=== PATIENT | male | born 1940 | race Caucasian/White ===

== ENCOUNTER 2017-03-28 12:18 | Emergency (ER) | payer BC, OTHER ==
[2017-03-28 12:28] VITALS: BP 124/72; PULSE 78; TEMP 98.6; BMI 36.6
[2017-03-28] MEDS ORDERED: oxyCODONE HCL 5 MG TABLET PO ONE (13:23)
[2017-03-28] MEDS ORDERED: oxyCODONE HCL 5 MG TABLET ONE (13:25)
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
== END 2017-03-28 16:39 | disposition home or self-care (01) ==
LOC: JERFT 12:18
DX: S80.12XA Contusion of left lower leg, initial encounter (principal); V43.42XA Person boarding or alighting a car injured in collision with other type car, initial encounter; Y92.414 Local residential or business street as the place of occurrence of the external cause; Y93.89 Activity, other specified; Y99.8 Other external cause status; I10 Essential (primary) hypertension; E11.9 Type 2 diabetes mellitus without complications; Z79.4 Long term (current) use of insulin; Z94.4 Liver transplant status
CPT/HCPCS: 70450-TC; 72125-TC; 72131-TC; 72170-TC; 73562-TC-LT; 73700-TC-RT; 99281-25

== ENCOUNTER 2017-04-15 13:13 | Inpatient (IN) | payer BC, OTHER ==
[2017-04-15 13:23] VITALS: BMI 37.4
--- NOTE | 2017-04-15 14:14 | PDOC ---
History of Present Illness - General History Source: Patient, Family Exam Limitations: No Limitations - History of Present Illness Initial Comments: 04/15/17 14:45 The patient is a 76 year old male with a significant past medical history of diabetes, liver transplant (15 years ago), and hypertension, presenting to the Emergency Department with cough and difficulty breathing for three days. The patient reports that he has had a non productive cough for four days that he states cant bring anything up. He admits to chest pain associated with the cough and difficulty breathing. He reports calling his doctor on the phone who states it sounds like fluid in his lungs. He admits to a liver transplant 15 years ago, for which he takes Prograf. The family also reports a fever. He denies previously having problems with breathing. Family states they want him tested for Lyme's disease. The patient denies nausea, vomiting, and diarrhea. Patient denies palpitations. Patient denies dizziness, headache, or visual changes. Patient denies abdominal pain. PCP: Dr. Nam Daniel Hx: former cigarette smoker Surgical Hx: appendectomy, bilateral hernia repair, cholecystectomy, liver transplant <Lor Barnard - Last Filed: 04/15/17 14:58> <Parvin Chen - Last Filed: 04/15/17 17:17> <Mumtaz Caldera - Last Filed: 04/15/17 17:32> - General Chief Complaint: SIRS, Suspected/Possible Stated Complaint: LIVER TRANSPLANT,FEVER,SOB Time Seen by Provider: 04/15/17 14:13 Past History <Lor Barnard - Last Filed: 04/15/17 14:58> <Parvin Chen - Last Filed: 04/15/17 17:17> - Past Medical History Anemia: No Asthma: No Cancer: No Cardiac Disorders: No CVA: No COPD: No CHF: No Dementia: No Diabetes: Yes (IDDM) GI Disorders: Yes Disorders: Yes (GOUT) HTN: Yes Hypercholesterolemia: Yes Liver Disease: Yes (TRANSPLANT 2000) Seizures: No Thyroid Disease: No - Surgical History Abdominal Surgery: Yes (JASON HERNIA REPAIR) Appendectomy: Yes Cardiac Surgery: No Cholecystectomy: Yes GI Surgery: Yes (liver) Lung Surgery: No Neurologic Surgery: No Orthopedic Surgery: No - Psycho/Social/Smoking Cessation Hx Anxiety: No Suicidal Ideation: No Smoking History: Current some day smoker Have you smoked in the past 12 months: Yes Number of Cigarettes Smoked Daily: 1 Information on smoking cessation initiated: Yes 'Breaking Loose' booklet given: 04/15/17 Hx Alcohol Use: No Drug/Substance Use Hx: No Substance Use Type: None Hx Substance Use Treatment: No <Mumtaz Caldera - Last Filed: 04/15/17 17:32> - Past Medical History Allergies/Adverse Reactions: Allergies Allergy/AdvReac Type Severity Reaction Status Date / Time No Known Drug Allergies Allergy Verified 04/15/17 13:19 Home Medications: Ambulatory Orders Allopurinol [Zyloprim -] 300 mg PO DAILY 05/14/15 Colchicine [Colcrys -] 0.6 mg PO DAILY 05/14/15 Insulin Lispro Protamin/Lispro [Humalog Mix 75-25 Kwikpen] 60 unit SQ HS Lansoprazole [Prevacid -] 30 mg PO DAILY 05/14/15 Metoprolol Succinate [Toprol XL -] 25 mg PO DAILY 05/14/15 Pravastatin Sodium 20 mg PO DAILY 05/14/15 Tacrolimus 1 mg PO DAILY 05/14/15 Oxycodone HCl 5 mg PO BID PRN #10 tablet MDD 2 03/28/17 Review of Systems - Review of Systems Able to Perform ROS?: Yes Comments:: 04/15/17 14:45 GENERAL/CONSTITUTIONAL: No fever or chills. No weakness. HEAD, EYES, EARS, NOSE AND THROAT: No change in vision. No ear pain or discharge. No sore throat. CARDIOVASCULAR: + chest pain. No palpitations. RESPIRATORY: + nonproductive cough, + difficulty breathing. No wheezing, or hemoptysis. GASTROINTESTINAL: No nausea, vomiting, diarrhea or constipation. GENITOURINARY: No dysuria, frequency, or change in urination. MUSCULOSKELETAL: No joint or muscle swelling or pain. No neck or back pain. SKIN: No rash NEUROLOGIC: No headache, vertigo, loss of consciousness, or change in strength/ sensation. ENDOCRINE: No increased thirst. No abnormal weight change. HEMATOLOGIC/LYMPHATIC: No anemia, easy bleeding, or history of blood clots. ALLERGIC/IMMUNOLOGIC: No hives or skin allergy. <Lor Barnard - Last Filed: 04/15/17 14:58> *Physical Exam - Vital Signs Last Vital Signs Temp Pulse Resp BP Pulse Ox 100.3 F H 97 H 24 120/59 95 04/15/17 13:20 04/15/17 13:20 04/15/17 13:20 04/15/17 13:20 04/15/17 13:20 - Physical Exam Comments: 04/15/17 14:46 GENERAL: Awake, alert, and fully oriented, in no acute distress HEAD: No signs of trauma EYES: PERRLA, EOMI, sclera anicteric, conjunctiva clear ENT: Auricles normal inspection, hearing grossly normal, nares patent, oropharynx clear without exudates. Moist mucosa NECK: Slight JVD. Normal ROM, supple, no lymphadenopathy, or masses LUNGS: Rhonchi scattered throughout, front and back, bilaterally. HEART: Regular rate and rhythm, normal S1 and S2, no murmurs, rubs or gallops ABDOMEN: Protuberant abdomen. Soft, nontender, normoactive bowel sounds. No guarding, no rebound. No masses EXTREMITIES: Normal range of motion, no edema. No clubbing or cyanosis. No cords, erythema, or tenderness NEUROLOGICAL: Cranial nerves II through XII grossly intact. Normal speech SKIN: Warm, Dry, normal turgor, no rashes or lesions noted. <Lor Barnard - Last Filed: 04/15/17 14:58> - Vital Signs Last Vital Signs Temp Pulse Resp BP Pulse Ox 100.3 F H 97 H 24 120/59 95 04/15/17 13:20 04/15/17 13:20 04/15/17 13:20 04/15/17 13:20 04/15/17 13:20 <Parvin Chen - Last Filed: 04/15/17 17:17> - Vital Signs Last Vital Signs Temp Pulse Resp BP Pulse Ox 100.3 F H 97 H 24 120/59 95 04/15/17 13:20 04/15/17 13:20 04/15/17 13:20 04/15/17 13:20 04/15/17 13:20 <Mumtaz Caldera - Last Filed: 04/15/17 17:32> Heart Score/ECG Review #1 ECG reviewed & interpreted by me at: 14:52 (EKG reviewed by Dr. Caldera. Normal sinus rhythm. Normal rate. Normal interval. Normal EKG. ) <Lor Barnard - Last Filed: 04/15/17 14:58> ED Treatment Course - RADIOLOGY Radiograph Interpretation: 04/15/17 14:58 Chest XRay As reviewed by Dr. Matthew Alvarado IMPRESSION: No acute change since prior study. <Lor Barnard - Last Filed: 04/15/17 14:58> - LABORATORY CBC & Chemistry Diagram: 04/15/17 15:00 04/15/17 15:00 - ADDITIONAL ORDERS Additional order review: Laboratory Results 04/15/17 04/15/17 04/15/17 16:35 15:20 15:00 INR PTT (Actin FS) VBG pH 7.42 POC VBG pCO2 37.5 L POC VBG pO2 38.9 Mixed VBG HCO3 23.9 Sodium Potassium Chloride Carbon Dioxide Anion Gap BUN Creatinine Creat Clearance w eGFR Random Glucose Lactic Acid Calcium Total Bilirubin AST ALT Alkaline Phosphatase Ammonia Creatine Kinase Troponin I B-Natriuretic Peptide 243.80 Total Protein Albumin Urine Color Yellow Urine Appearance Clear Urine pH 5.0 Urine Protein 1+ H Urine Glucose (UA) Negative Urine Ketones Negative Urine Blood 1+ H Urine Nitrite Negative Urine Bilirubin Negative Urine Urobilinogen 2.0 e.u/dl Ur Leukocyte Esterase Negative Urine RBC 2 Urine WBC <1 Blood Type Antibody Screen 04/15/17 04/15/17 04/15/17 15:00 15:00 15:00 INR PTT (Actin FS) VBG pH POC VBG pCO2 POC VBG pO2 Mixed VBG HCO3 Sodium Potassium Chloride Carbon Dioxide Anion Gap BUN Creatinine Creat Clearance w eGFR Random Glucose Lactic Acid 0.9 Calcium Total Bilirubin AST ALT Alkaline Phosphatase Ammonia 27.72 Creatine Kinase Troponin I B-Natriuretic Peptide Total Protein Albumin Urine Color Urine Appearance Urine pH Urine Protein Urine Glucose (UA) Urine Ketones Urine Blood Urine Nitrite Urine Bilirubin Urine Urobilinogen Ur Leukocyte Esterase Urine RBC Urine WBC Blood Type B POSITIVE Antibody Screen Negative 04/15/17 04/15/17 15:00 15:00 INR 1.21 H PTT (Actin FS) 31.1 VBG pH POC VBG pCO2 POC VBG pO2 Mixed VBG HCO3 Sodium 137 Potassium 4.4 Chloride 102 Carbon Dioxide 26 Anion Gap 9 BUN 21 H D Creatinine 1.3 Creat Clearance w eGFR 53.39 Random Glucose 173 H D Lactic Acid Calcium 8.9 Total Bilirubin 0.9 D AST 17 ALT 18 Alkaline Phosphatase 114 D Ammonia Creatine Kinase 64 Troponin I < 0.02 B-Natriuretic Peptide Total Protein 7.3 Albumin 3.6 Urine Color Urine Appearance Urine pH Urine Protein Urine Glucose (UA) Urine Ketones Urine Blood Urine Nitrite Urine Bilirubin Urine Urobilinogen Ur Leukocyte Esterase Urine RBC Urine WBC Blood Type Antibody Screen 04/15/17 15:00 RBC 4.23 MCV 95.2 MCHC 32.9 RDW 14.1 MPV 8.6 Neutrophils % 71.5 Lymphocytes % 17.7 D Monocytes % 7.7 Eosinophils % 2.9 Basophils % 0.2 <Parvin Chen - Last Filed: 04/15/17 17:17> - LABORATORY CBC & Chemistry Diagram: 04/15/17 15:00 04/15/17 15:00 <Mumtaz Caldera - Last Filed: 04/15/17 17:32> Medical Decision Making - Medical Decision Making 04/15/17 17:18 Dr. Lee was paged and notified via phone service. <Parvin Chen - Last Filed: 04/15/17 17:17> - Medical Decision Making 04/15/17 17:30 Because of liver transplant will give IV antibiotic and solumedrol. Will give codeine with zofran as cough supressent. DW Dr Lee, OBS <Mumtaz Caldera - Last Filed: 04/15/17 17:32> *DC/Admit/Observation/Transfer - Attestations Scribe Attestion: 04/15/17 14:48 Documentation prepared by Lor Barnard, acting as medical records coder for Mumtaz Caldera DO. <Lor Barnard - Last Filed: 04/15/17 14:58> <Parvin Chen - Last Filed: 04/15/17 17:17> - Discharge Dispostion Admit: Yes - Attestations Physician Attestion: 04/15/17 14:14 I, Dr. Mumtaz Caldera, attest that this document has been prepared under my direction and personally reviewed by me in its entirety. I further attest, that it accurately reflects all work, treatment, procedures and medical decision -making performed by me. <Mumtaz Caldera - Last Filed: 04/15/17 17:32> Diagnosis at time of Disposition: Chronic obstructive pulmonary disease with acute exacerbation - Discharge Dispostion Condition at time of disposition: Improved - Referrals Referrals: Nam Lee MD [Primary Care Provider] -
[2017-04-15 15:19] LABS: BASOPHIL 0.2 % (0-2.0); EOSINOPHIL 2.9 % (0-4.5); MCH 31.4 pg (25.7-33.7); MCHC 32.9 g/dl (32.0-35.9); MEAN CELL VOLUME 95.2 fl (80-96); MEAN PLT VOLUME 8.6 fl (7.5-11.1); NEUTROPHILS 71.5 % (42.8-82.8); PLATELET COUNT 176 K/MM3 (134-434); RDW 14.1 % (11.9-15.9); WHITE BLOOD COUNT 8.7 K/mm3 (4.0-10.0)
[2017-04-15 15:27] LABS: VENOUS BLOOD GAS HCO3 23.9 meq/L (19-25); VENOUS PH 7.42 (7.32-7.42)
[2017-04-15 15:31] LABS: INR 1.21 (0.82-1.09); PROTHROMBIN TIME (PATIENT) 13.4 SEC (9.98-11.88)
[2017-04-15 15:33] LABS: ACTIVATED PTT 31.1 SECONDS (26.9-34.4)
[2017-04-15 15:40] LABS: ALBUMIN 3.6 g/dl (3.4-5.0); ANION GAP 9 (8-16); BILIRUBIN,TOTAL 0.9 mg/dL (0.2-1.0); CALCIUM 8.9 mg/dL (8.5-10.1); CO2 26 mmol/L (21-32); CREATININE 1.3 mg/dL (0.7-1.3); GLUCOSE,RANDOM 173 mg/dL (74-106); SGOT/AST 17 U/L (15-37); SGPT/ALT 18 U/L (12-78); TOT PROT 7.3 g/dl (6.4-8.2)
[2017-04-15 15:42] LABS: ALK PHOS 114 U/L (45-117); TROPONIN I < 0.02 ng/ml (0.00-0.05)
[2017-04-15 16:47] LABS: URINE APPEARANCE CLEAR; URINE BILIRUBIN NEGATIVE (NEGATIVE); URINE COLOR YELLOW; URINE GLUCOSE (UA) NEGATIVE (NEGATIVE); URINE KETONE NEGATIVE (NEGATIVE); URINE LEUK ESTERASE NEGATIVE (NEGATIVE); URINE NITRITE NEGATIVE (NEGATIVE); URINE UROBILINOGEN 2.0 E.U/dl E.U./dl (0.2-1.0)
[2017-04-15 16:54] LABS: URINE BLOOD 1+ (NEGATIVE); URINE PROTEIN 1+ (NEGATIVE)
[2017-04-15 16:55] LABS: URINE RBC 2 /hpf (0-3); URINE WBC <1 /hpf (3-5)
[2017-04-15] MEDS ORDERED: CODEINE SO4 30 MG TABLET PO ONE (17:28)
[2017-04-15] MEDS ORDERED: ONDANSETRON *ODT* 4 MG TABLET SL ONE (17:28)
[2017-04-15] MEDS ORDERED: methylPREDNISolone NA SUCC 125 MG/2 ML VIAL IVPB ONE (17:29)
[2017-04-15] MEDS ORDERED: LEVOFLOXACIN 750 MG IVPB 150 ML IVPB ONE ×2 (17:29→17:37)
[2017-04-15] MEDS ORDERED: methylPREDNISolone NA SUCC 125 MG/2 ML VIAL ONE (17:36)
[2017-04-15] MEDS ORDERED: ONDANSETRON *ODT* 4 MG TABLET ONE (17:36)
[2017-04-15] MEDS ORDERED: CODEINE SO4 30 MG TABLET ONE (17:36)
[2017-04-15] MEDS ORDERED: ACETAMINOPHEN 325 MG TABLET (FP) PO PRN (18:19)
[2017-04-15] MEDS ORDERED: oxyCODONE HCL 5 MG TABLET PO PRN (18:19)
[2017-04-15] MEDS ORDERED: cefTRIAXone 1 GM/50 ML BAG (PRE-DOCKED) IVPB ONE (20:00)
[2017-04-15] MEDS: methylPREDNISolone NA SUCC 40 MG/1 ML VIAL IVPB SCH (20:36)
[2017-04-15 21:06] LABS: TROPONIN I < 0.02 ng/ml (0.00-0.05)
[2017-04-15] MEDS: ATORVASTATIN CA 10 MG TABLET (FP) PO SCH (21:48)
[2017-04-15] MEDS: HEPARIN NA (PORCINE) 5,000 UNITS/ML 1ML VIAL SQ SCH (21:48)
[2017-04-16] MEDS: ALBUTEROL SO4 0.083% IH SOL 2.5 MG/3 ML VIAL.NEB. NEB SCH ×4 (00:35→18:13)
[2017-04-16] MEDS: IPRATROPIUM BR 0.02% 0.5 MG/2.5 ML VIAL.NEB. NEB SCH ×4 (00:35→18:12)
[2017-04-16] MEDS: methylPREDNISolone NA SUCC 40 MG/1 ML VIAL IVPB SCH ×4 (03:50→22:27)
[2017-04-16] MEDS: INSULIN (NOVOLOG MIX 70/30) 100 UNITS/ML MDV SQ SCH ×2 (06:11→16:49)
[2017-04-16 07:19] LABS: MCH 32.1 pg (25.7-33.7); MCHC 33.6 g/dl (32.0-35.9); MEAN CELL VOLUME 95.6 fl (80-96); MEAN PLT VOLUME 8.9 fl (7.5-11.1); NEUTROPHILS 87.9 % (42.8-82.8); PLATELET COUNT 155 K/MM3 (134-434); RDW 14.2 % (11.9-15.9); WHITE BLOOD COUNT 4.9 K/mm3 (4.0-10.0)
--- NOTE | 2017-04-16 07:23 | EKG ---
Test Reason : Blood Pressure : / mmHG Vent. Rate : 098 BPM Atrial Rate : 098 BPM P-R Int : 162 ms QRS Dur : 094 ms QT Int : 340 ms P-R-T Axes : 028 032 049 degrees QTc Int : 434 ms NORMAL SINUS RHYTHM NORMAL ECG WHEN COMPARED WITH ECG OF 04-MAY-2009 17:42, CRITERIA FOR INFERIOR INFARCT ARE NO LONGER PRESENT Confirmed by YANET AMARAL MD ([id number]) on 04/16/2017 7:23:21 AM Referred By: Confirmed By:YANET AMARAL MD
[2017-04-16 07:24] LABS: ALBUMIN 3.3 g/dl (3.4-5.0); ANION GAP 12 (8-16); CALCIUM 8.8 mg/dL (8.5-10.1); CO2 22 mmol/L (21-32); COCKROFT - GAULT 58.53; CREATININE 1.5 mg/dL (0.7-1.3); SGOT/AST 12 U/L (15-37); SGPT/ALT 18 U/L (12-78)
[2017-04-16 07:27] LABS: ALK PHOS 111 U/L (45-117); BILIRUBIN,TOTAL 0.5 mg/dL (0.2-1.0)
[2017-04-16 07:34] LABS: GLUCOSE,RANDOM 447 mg/dL (74-106)
[2017-04-16] MEDS ORDERED: PATIENT'S OWN MEDICATION (NON-FORMULARY) (Pravastatin Sodium [Pravastatin Sodium] 20 MG) PO SCH (10:00)
[2017-04-16] MEDS ORDERED: PT OWN MED DRAWER 7, Y5N ONE ×2 (10:13→12:27)
[2017-04-16] MEDS: METOPROLOL SUCCINATE 25 MG TAB.SR.24H (FP) PO SCH (10:18)
[2017-04-16] MEDS: ALLOPURINOL 300 MG TABLET (FP) PO SCH (10:18)
[2017-04-16] MEDS: PANTOPRAZOLE 40 MG TABLET (FP) PO SCH (10:18)
[2017-04-16] MEDS: HEPARIN NA (PORCINE) 5,000 UNITS/ML 1ML VIAL SQ SCH ×2 (10:19→22:26)
[2017-04-16] MEDS: cefTRIAXone 1 GM/50 ML BAG (PRE-DOCKED) IVPB SCH (10:19)
[2017-04-16 10:24] LABS: TROPONIN I < 0.02 ng/ml (0.00-0.05)
--- NOTE | 2017-04-16 11:06 | CON.PULM ---
Consult Consult Specialty:: PULMONARY Referred by:: YOGESH Reason for Consultation:: SOB/COUGH - History of Present Illness Chief Complaint: SOB/COUGH History of Present Illness: The patient is a 76 year old male with a significant past medical history of diabetes, liver transplant (15 years ago), and hypertension, presenting to the Emergency Department with cough and difficulty breathing for three days. The patient reports that he has had a non productive cough for four days that he states cant bring anything up. He admits to chest pain associated with the cough and difficulty breathing. He reports calling his doctor on the phone who states it sounds like fluid in his lungs. He admits to a liver transplant 15 years ago, for which he takes Prograf. The family also reports an undocumented fever. He denies previously having problems with breathing. The patient denies nausea, vomiting, and diarrhea. Patient denies palpitations. Patient denies dizziness, headache, or visual changes. Patient denies abdominal pain. 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 No: O2 Dependent Gastrointestinal: No: Ascites Hepatobiliary: Yes: Other (LIVER TRANSPLANT). No: Cirrhosis Renal/: No: Renal Failure Heme/Onc: No: Anemia Infectious Disease: No: AIDS Psych: No: Addictions Musculoskeletal: No: Bursitis Rheumatology: No: Fibromyalgia ENT: No: Allergic Rhinitis Endocrine: Yes: Diabetes Mellitus - Past Surgical History Additional Surgical History: LIVER TRANSPLANT - Alcohol/Substance Use Hx Alcohol Use: No - Smoking History Smoking history: Current every day smoker Have you smoked in the past 12 months: Yes Aproximately how many cigarettes per day: 10 - Social History Usual Living Arrangement: With Spouse Place of : Other History of Recent Travel: No Home Medications - Allergies Allergies/Adverse Reactions: Allergies Allergy/AdvReac Type Severity Reaction Status Date / Time No Known Drug Allergies Allergy Verified 04/15/17 13:19 - Home Medications Home Medications: Ambulatory Orders Allopurinol [Zyloprim -] 300 mg PO DAILY 05/14/15 Colchicine [Colcrys -] 0.6 mg PO DAILY 05/14/15 Insulin Lispro Protamin/Lispro [Humalog Mix 75-25 Kwikpen] 60 unit SQ HS 06/26/ 15 Lansoprazole [Prevacid -] 30 mg PO DAILY 05/14/15 Metoprolol Succinate [Toprol XL -] 25 mg PO DAILY 05/14/15 Pravastatin Sodium 20 mg PO DAILY 05/14/15 Tacrolimus 1 mg PO DAILY 05/14/15 Oxycodone HCl 5 mg PO BID PRN #10 tablet MDD 2 03/28/17 Family Disease History - Family Disease History Family History: Unremarkable Review of Systems - Review of Systems Respiratory: reports: Cough, Exercise Intolerance, SOB on Exertion, Wheezing. denies: Hemoptysis, Orthopnea Physical Exam Vital Sings: Vital Signs Temperature 98.4 F 04/16/17 08:00 Pulse Rate 101 H 04/16/17 08:00 Respiratory Rate 18 04/16/17 08:00 Blood Pressure 122/68 04/16/17 08:00 O2 Sat by Pulse Oximetry (%) 95 04/15/17 22:00 Constitutional: Yes: Calm Eyes: Yes: EOM Intact HENT: Yes: Normocephalic Neck: Yes: Trachea Midline Cardiovascular: Yes: Regular Rate and Rhythm, S1, S2 Respiratory: Yes: Rhonchi (BILATERALLY/SCATTERED) Gastrointestinal: Yes: Normal Bowel Sounds, Abdomen, Obese Renal/: Yes: WNL Breast(s): Yes: WNL Musculoskeletal: Yes: WNL Extremities: Yes: WNL Edema: No Neurological: Yes: WNL Psychiatric: Yes: WNL Labs: CBC, BMP 04/16/17 06:15 04/16/17 06:15 REST REVIEWED Imaging - Results Chest X-ray: Image Reviewed Cat Scan: Image Reviewed Problem List - Problems (1) Acute exacerbation of chronic obstructive pulmonary disease (COPD) Code(s): J44.1 - CHRONIC OBSTRUCTIVE PULMONARY DISEASE W (ACUTE) EXACERBATION (2) Acute bronchitis Code(s): J20.9 - ACUTE BRONCHITIS, UNSPECIFIED (3) Smoker Code(s): F17.200 - NICOTINE DEPENDENCE, UNSPECIFIED, UNCOMPLICATED Assessment/Plan LIKELY ACUTE BRONCHITIS NO CT EVIDENCE TO SUPPORT PNEUMONIA LIVER TRANSPLANT COPD ACTIVE SMOKER AGREE WITH STEROIDS/BRONCHODILATORS/ANTIBIOTICS/O2 NEEDED DVT PROPHYLAXSIS GLYCEMIC CONTROL SMOKING CESSATION OOB TO CHAIR WILL FOLLOW Guera GLASS MD
[2017-04-16] MEDS: TACROLIMUS 1 MG PO SCH (11:18)
--- NOTE | 2017-04-16 11:52 | HP ---
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 No: O2 Dependent Gastrointestinal: No: Ascites Hepatobiliary: Yes: Other (LIVER TRANSPLANT). No: Cirrhosis Renal/: No: Renal Failure Heme/Onc: No: Anemia Infectious Disease: No: AIDS Psych: No: Addictions Musculoskeletal: No: Bursitis Rheumatology: No: Fibromyalgia ENT: No: Allergic Rhinitis Endocrine: Yes: Diabetes Mellitus - Smoking History Smoking history: Current every day smoker Have you smoked in the past 12 months: Yes Aproximately how many cigarettes per day: 10 - Alcohol/Substance Use Hx Alcohol Use: No - Social History History of Recent Travel: No Home Medications - Allergies Allergies/Adverse Reactions: Allergies Allergy/AdvReac Type Severity Reaction Status Date / Time No Known Drug Allergies Allergy Verified 04/15/17 13:19 - Home Medications Home Medications: Ambulatory Orders Allopurinol [Zyloprim -] 300 mg PO DAILY 05/14/15 Colchicine [Colcrys -] 0.6 mg PO DAILY 05/14/15 Insulin Lispro Protamin/Lispro [Humalog Mix 75-25 Kwikpen] 60 unit SQ HS Lansoprazole [Prevacid -] 30 mg PO DAILY 05/14/15 Metoprolol Succinate [Toprol XL -] 25 mg PO DAILY 05/14/15 Pravastatin Sodium 20 mg PO DAILY 05/14/15 Tacrolimus 1 mg PO DAILY 05/14/15 Oxycodone HCl 5 mg PO BID PRN #10 tablet MDD 2 03/28/17 Review of Systems - Review of Systems Cardiovascular: reports: Chest Pain (RT SIDED), Shortness of Breath Respiratory: reports: Cough, SOB, SOB on Exertion, Wheezing Gastrointestinal: reports: No Symptoms Genitourinary: reports: No Symptoms Neurological: reports: No Symptoms Physical Examination Vital Signs: Vital Signs Temperature 98.4 F 04/16/17 08:00 Pulse Rate 101 H 04/16/17 08:00 Respiratory Rate 18 04/16/17 08:00 Blood Pressure 122/68 04/16/17 08:00 O2 Sat by Pulse Oximetry (%) 95 04/15/17 22:00 Cardiovascular: Yes: Regular Rate and Rhythm Respiratory: Yes: On Nasal O2, Rhonchi, Wheezes Gastrointestinal: Yes: Normal Bowel Sounds, Soft Edema: No Labs: CBC, BMP 04/16/17 06:15 04/16/17 06:15 Problem List - Problems (1) Acute bronchitis Assessment/Plan: IV ABX NEBS IV STEROIDS PULM Code(s): J20.9 - ACUTE BRONCHITIS, UNSPECIFIED (2) Acute exacerbation of chronic obstructive pulmonary disease (COPD) Assessment/Plan: STEROIDS NEBS Code(s): J44.1 - CHRONIC OBSTRUCTIVE PULMONARY DISEASE W (ACUTE) EXACERBATION (3) Smoker Assessment/Plan: SMOKING CESSATION DISCUSSED Code(s): F17.200 - NICOTINE DEPENDENCE, UNSPECIFIED, UNCOMPLICATED (4) Diabetes Assessment/Plan: INSULIN BGM SS ENDO Code(s): E11.9 - TYPE 2 DIABETES MELLITUS WITHOUT COMPLICATIONS (5) Chest pain Assessment/Plan: ATYPICAL PROBABLY FROM COUGHING CARDIO CE NEGATIVE Troponin, BNP 04/15/17 04/15/17 04/15/17 15:00 15:00 20:31 Troponin I < 0.02 < 0.02 B-Natriuretic Peptide 243.80 267.25 04/16/17 06:15 Troponin I < 0.02 B-Natriuretic Peptide Code(s): R07.9 - CHEST PAIN, UNSPECIFIED Qualifiers: Chest pain type: other chest pain Qualified Code(s): R07.89 - Other chest pain; R07.8 - Other chest pain
[2017-04-16] MEDS ORDERED: PNEUMOC 13-VAL CONJ-DIP CRM/PF 0.5 ML DISP.SYRIN IM ONE (12:00)
[2017-04-16] MEDS: INSULIN SLIDING SCALE (NOVOLOG) 1 VIAL SQ SCH ×3 (12:13→22:26)
--- NOTE | 2017-04-16 15:06 | CON.CARD ---
Consult Consult Specialty:: Cardiology Referred by:: DR Lee Reason for Consultation:: chest pain - History of Present Illness Chief Complaint: sob cough cp History of Present Illness: 76 year old male with a history of diabetes, liver transplant (15 years ago) at [facility], hypertension admitted with fever, cough and sputum production. Also right sided pleuritic chest pain increased with cough and palpation of the chest wall , nonexertional. No associated symptoms. No orthopnea, pnd or edema. Baseline exercise tolerance is excellent. 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 No: O2 Dependent Gastrointestinal: No: Ascites Hepatobiliary: Yes: Other (LIVER TRANSPLANT). No: Cirrhosis Renal/: No: Renal Failure Infectious Disease: No: AIDS Psych: No: Addictions Musculoskeletal: No: Bursitis Rheumatology: No: Fibromyalgia ENT: No: Allergic Rhinitis Endocrine: Yes: Diabetes Mellitus - Past Surgical History Additional Surgical History: LIVER TRANSPLANT - Alcohol/Substance Use Hx Alcohol Use: No - Smoking History Smoking history: Current every day smoker Have you smoked in the past 12 months: Yes Aproximately how many cigarettes per day: 10 - Social History Usual Living Arrangement: With Spouse History of Recent Travel: No Home Medications - Allergies Allergies/Adverse Reactions: Allergies Allergy/AdvReac Type Severity Reaction Status Date / Time No Known Drug Allergies Allergy Verified 04/15/17 13:19 - Home Medications Home Medications: Ambulatory Orders Allopurinol [Zyloprim -] 300 mg PO DAILY 05/14/15 Colchicine [Colcrys -] 0.6 mg PO DAILY 05/14/15 Insulin Lispro Protamin/Lispro [Humalog Mix 75-25 Kwikpen] 60 unit SQ HS Lansoprazole [Prevacid -] 30 mg PO DAILY 05/14/15 Metoprolol Succinate [Toprol XL -] 25 mg PO DAILY 05/14/15 Pravastatin Sodium 20 mg PO DAILY 05/14/15 Tacrolimus 1 mg PO DAILY 05/14/15 Oxycodone HCl 5 mg PO BID PRN #10 tablet MDD 2 03/28/17 Review of Systems - Review of Systems Constitutional: reports: No Symptoms Vital Signs: Vital Signs Temperature 98.4 F 04/16/17 08:00 Pulse Rate 96 H 04/16/17 13:40 Respiratory Rate 18 04/16/17 08:00 Blood Pressure 122/68 04/16/17 08:00 O2 Sat by Pulse Oximetry (%) 96 04/16/17 13:40 Constitutional: Yes: Well Nourished, No Distress Eyes: Yes: Conjunctiva Clear, EOM Intact HENT: Yes: Atraumatic, Normocephalic Neck: Yes: Supple, Trachea Midline Respiratory: Yes: Regular, CTA Bilaterally Gastrointestinal: Yes: Normal Bowel Sounds, Soft Cardiovascular: Yes: Regular Rate and Rhythm JVD: No Carotid Bruit: No PMI: Non-Displaced Heart Sounds: Yes: S1, S2 Edema: No Peripheral Pulses WNL: Yes - Other Data Labs, Other Data: CBC, BMP 04/16/17 06:15 04/16/17 06:15 INR, PTT INR 1.21 (0.82-1.09) H 04/15/17 15:00 Troponin, BNP 04/15/17 04/16/17 20:31 06:15 Troponin I < 0.02 < 0.02 B-Natriuretic Peptide 267.25 Troponin, BNP 04/15/17 04/16/17 20:31 06:15 Troponin I < 0.02 < 0.02 B-Natriuretic Peptide 267.25 Imaging - Results Chest X-ray: Report Reviewed (tammi) EKG: Report Reviewed (Normal ECG) Problem List - Problems (1) Chest pain Assessment/Plan: His chest pain is low risk for ischemia. No need for inpatient cardiac workup. continue with current treatment. smoking cessation advised. will see prn. Code(s): R07.9 - CHEST PAIN, UNSPECIFIED Qualifiers: Chest pain type: other chest pain Qualified Code(s): R07.89 - Other chest pain; R07.8 - Other chest pain
[2017-04-16] MEDS ORDERED: INSULIN (NOVOLOG) ASPART 100 UNITS/ML 10ML VIAL ONE (21:55)
[2017-04-16] MEDS: ATORVASTATIN CA 10 MG TABLET (FP) PO SCH (22:26)
[2017-04-17] MEDS ORDERED: INSULIN (NOVOLOG) ASPART 100 UNITS/ML 10ML VIAL SQ ONE (00:45)
[2017-04-17] MEDS: methylPREDNISolone NA SUCC 40 MG/1 ML VIAL IVPB SCH ×3 (03:49→21:04)
[2017-04-17] MEDS: INSULIN (NOVOLOG MIX 70/30) 100 UNITS/ML MDV SQ SCH (06:38)
[2017-04-17] MEDS: INSULIN SLIDING SCALE (NOVOLOG) 1 VIAL SQ SCH ×4 (06:38→21:04)
[2017-04-17] MEDS ORDERED: INSULIN (NOVOLOG) ASPART 100 UNITS/ML 10ML VIAL ONE ×4 (06:43→20:58)
[2017-04-17] MEDS: ALBUTEROL SO4 0.083% IH SOL 2.5 MG/3 ML VIAL.NEB. NEB SCH ×2 (06:44)
[2017-04-17] MEDS: IPRATROPIUM BR 0.02% 0.5 MG/2.5 ML VIAL.NEB. NEB SCH ×2 (06:44)
[2017-04-17] MEDS ORDERED: INSULIN (NOVOLOG MIX 70/30) 100 UNITS/ML MDV SQ SCH ×3 (08:21→16:30)
--- NOTE | 2017-04-17 08:23 | PN ---
Progress Note, Physician History of Present Illness: STILL WITH A COUGH SOME IMPROVEMENT - Current Medication List Current Medications: Active Medications Acetaminophen (Tylenol -) 650 mg PO Q4H PRN PRN Reason: FEVER OR PAIN Albuterol/Ipratropium (Duoneb -) 1 amp NEB QIDR [facility] Allopurinol (Zyloprim -) 300 mg PO DAILY [facility] Last Admin: 04/16/17 10:18 Dose: Not Given Atorvastatin Calcium (Lipitor -) 10 mg PO HS [facility] Last Admin: 04/16/17 22:26 Dose: 10 mg Ceftriaxone Sodium (Rocephin 1gm Ivpb (Pre-Docked)) 1 gm IVPB DAILY [facility] PRN Reason: Protocol Last Admin: 04/16/17 10:19 Dose: 1 gm Heparin Sodium (Porcine) (Heparin -) 5,000 unit SQ BID [facility] Last Admin: 04/16/17 22:26 Dose: 5,000 unit Insulin Aspart (Novolog Vial Sliding Scale -) 1 vial SQ ACHS [facility] PRN Reason: Protocol Last Admin: 04/17/17 06:38 Dose: 10 units Insulin Aspart (Novolog Mix 70/30 Vial) 25 units SQ BIDAC [facility] Methylprednisolone Sodium Succinate (Solu-Medrol -) 40 mg IVPB BID [facility] Metoprolol Succinate (Toprol Xl -) 25 mg PO DAILY [facility] Last Admin: 04/16/17 10:18 Dose: Not Given Non-Formulary Medication (Tacrolimus [Tacrolimus]) 1 mg PO DAILY [facility] Last Admin: 04/16/17 11:18 Dose: 1 mg Oxycodone HCl (Roxicodone -) 5 mg PO Q6H PRN PRN Reason: PAIN Pantoprazole Sodium (Protonix -) 40 mg PO DAILY [facility] Last Admin: 04/16/17 10:18 Dose: 40 mg - Objective Vital Signs: Vital Signs Temperature 98.6 F 04/17/17 05:48 Pulse Rate 100 H 04/17/17 05:48 Respiratory Rate 20 04/17/17 05:48 Blood Pressure 107/64 04/17/17 05:48 O2 Sat by Pulse Oximetry (%) 96 04/16/17 13:40 Cardiovascular: Yes: Regular Rate and Rhythm Respiratory: Yes: On Nasal O2, Rhonchi Gastrointestinal: Yes: Normal Bowel Sounds, Soft Labs: CBC, BMP 04/16/17 06:15 04/16/17 06:15 INR, PTT INR 1.21 (0.82-1.09) H 04/15/17 15:00 Problem List - Problems (1) Acute bronchitis Assessment/Plan: IV ABX NEBS IV STEROIDS--TAPER PULM Code(s): J20.9 - ACUTE BRONCHITIS, UNSPECIFIED (2) Acute exacerbation of chronic obstructive pulmonary disease (COPD) Assessment/Plan: STEROIDS NEBS Code(s): J44.1 - CHRONIC OBSTRUCTIVE PULMONARY DISEASE W (ACUTE) EXACERBATION (3) Smoker Assessment/Plan: SMOKING CESSATION DISCUSSED Code(s): F17.200 - NICOTINE DEPENDENCE, UNSPECIFIED, UNCOMPLICATED (4) Diabetes Assessment/Plan: INSULIN--INCREASE AND MONITOR BS TAPER STEROIDS BGM SS ENDO Code(s): E11.9 - TYPE 2 DIABETES MELLITUS WITHOUT COMPLICATIONS (5) Chest pain Assessment/Plan: ATYPICAL PROBABLY FROM COUGHING CARDIO CONSULT NOTED CE NEGATIVE Troponin, BNP 04/15/17 04/15/17 04/15/17 15:00 15:00 20:31 Troponin I < 0.02 < 0.02 B-Natriuretic Peptide 243.80 267.25 04/16/17 06:15 Troponin I < 0.02 B-Natriuretic Peptide Code(s): R07.9 - CHEST PAIN, UNSPECIFIED Qualifiers: Chest pain type: other chest pain Qualified Code(s): R07.89 - Other chest pain; R07.8 - Other chest pain
[2017-04-17] MEDS: ALBUTEROL SO4 2.5/IPRATROPIUM 0.5 INH SOL 3 ML VIAL.NEB. NEB SCH ×2 (11:11→18:05)
[2017-04-17] MEDS: HEPARIN NA (PORCINE) 5,000 UNITS/ML 1ML VIAL SQ SCH ×2 (11:16→21:04)
[2017-04-17] MEDS: TACROLIMUS 1 MG PO SCH (11:17)
[2017-04-17] MEDS: METOPROLOL SUCCINATE 25 MG TAB.SR.24H (FP) PO SCH (11:17)
[2017-04-17] MEDS: PANTOPRAZOLE 40 MG TABLET (FP) PO SCH (11:17)
[2017-04-17] MEDS: cefTRIAXone 1 GM/50 ML BAG (PRE-DOCKED) IVPB SCH (11:17)
[2017-04-17] MEDS: ALLOPURINOL 300 MG TABLET (FP) PO SCH (11:17)
[2017-04-17] MEDS ORDERED: INSULIN (NOVOLOG MIX 70/30) 100 UNITS/ML MDV SQ ONE (11:37)
--- NOTE | 2017-04-17 14:17 | EKG ---
Test Reason : Blood Pressure : / mmHG Vent. Rate : 101 BPM Atrial Rate : 101 BPM P-R Int : 166 ms QRS Dur : 096 ms QT Int : 366 ms P-R-T Axes : 028 021 040 degrees QTc Int : 474 ms SINUS TACHYCARDIA OTHERWISE NORMAL ECG WHEN COMPARED WITH ECG OF 15-APR-2017 14:48, NO SIGNIFICANT CHANGE WAS FOUND Confirmed by FERNANDO SRINIVASAN MD ([id number]) on 04/17/2017 2:17:37 PM Referred By: Deanna TEJADA Confirmed By:FERNANDO SRINIVASAN MD
--- NOTE | 2017-04-17 15:02 | PN ---
Progress Note (short form) - Note Progress Note: PULMONARY Breathing improving but still with nonproductive cough. No fevers or chills. Last Vital Signs Temp Pulse Resp BP Pulse Ox 97.9 F 109 H 20 117/62 96 04/17/17 14:15 04/17/17 14:15 04/17/17 08:00 04/17/17 14:15 04/17/17 08:00 Gen: NAD at rest Heart: RRR Lung: decreased breath sounds at the bases Abd: soft, nontender Ext: no edema CBC, BMP 04/16/17 06:15 04/16/17 06:15 Active Medications Acetaminophen (Tylenol -) 650 mg PO Q4H PRN PRN Reason: FEVER OR PAIN Albuterol/Ipratropium (Duoneb -) 1 amp NEB QIDR [facility] Last Admin: 04/17/17 11:11 Dose: 1 amp Allopurinol (Zyloprim -) 300 mg PO DAILY [facility] Last Admin: 04/17/17 11:17 Dose: 300 mg Atorvastatin Calcium (Lipitor -) 10 mg PO HS [facility] Last Admin: 04/16/17 22:26 Dose: 10 mg Ceftriaxone Sodium (Rocephin 1gm Ivpb (Pre-Docked)) 1 gm IVPB DAILY [facility] PRN Reason: Protocol Last Admin: 04/17/17 11:17 Dose: 1 gm Heparin Sodium (Porcine) (Heparin -) 5,000 unit SQ BID [facility] Last Admin: 04/17/17 11:16 Dose: 5,000 unit Insulin Aspart (Novolog Mix 70/30 Vial) 35 units SQ BIDAC [facility] Insulin Aspart (Novolog Vial Sliding Scale -) 1 vial SQ ACHS [facility] PRN Reason: Protocol Insulin Detemir (Levemir Vial) 30 units SQ HS [facility] Methylprednisolone Sodium Succinate (Solu-Medrol -) 40 mg IVPB BID [facility] Last Admin: 04/17/17 11:17 Dose: 40 mg Metoprolol Succinate (Toprol Xl -) 25 mg PO DAILY [facility] Last Admin: 04/17/17 11:17 Dose: 25 mg Non-Formulary Medication (Tacrolimus [Tacrolimus]) 1 mg PO DAILY [facility] Last Admin: 04/17/17 11:17 Dose: 1 mg Oxycodone HCl (Roxicodone -) 5 mg PO Q6H PRN PRN Reason: PAIN Pantoprazole Sodium (Protonix -) 40 mg PO DAILY [facility] Last Admin: 04/17/17 11:17 Dose: 40 mg A/P Acute COPD exacerbation Acute Bronchitis DM Smoker - continue antibiotics - can taper medrol in AM - inhaled bronchodilators - glucose control while on systemic steroids - smoking cessation - DVT prophylaxis
[2017-04-17] MEDS: INSULIN DETEMIR 100 UNITS/ML MDV SQ SCH (21:03)
[2017-04-17] MEDS: ATORVASTATIN CA 10 MG TABLET (FP) PO SCH (21:04)
--- NOTE | 2017-04-17 22:47 | CONSULT ---
Consult Consult Specialty:: ENDOCRINE Referred by:: DR.IYAD MANZANARES Reason for Consultation:: IDDM UNCONTROLLED - History of Present Illness Chief Complaint: HIGH BLOOD SUGARS History of Present Illness: 76 year old male with a significant past medical history of diabetes, liver transplant (15 years ago), and hypertension, presenting to the Emergency Department with cough and difficulty breathing for three days. The patient reports that he has had a non productive cough for four days that he states can t bring anything up. 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 No: O2 Dependent Gastrointestinal: No: Ascites Hepatobiliary: Yes: Other (LIVER TRANSPLANT). No: Cirrhosis Renal/: No: Renal Failure Infectious Disease: No: AIDS Psych: No: Addictions Musculoskeletal: No: Bursitis Rheumatology: No: Fibromyalgia ENT: No: Allergic Rhinitis Endocrine: Yes: Diabetes Mellitus - Past Surgical History Additional Surgical History: LIVER TRANSPLANT - Alcohol/Substance Use Hx Alcohol Use: No - Smoking History Smoking history: Current every day smoker Have you smoked in the past 12 months: Yes Aproximately how many cigarettes per day: 10 - Social History Usual Living Arrangement: With Spouse History of Recent Travel: No Home Medications - Allergies Allergies/Adverse Reactions: Allergies Allergy/AdvReac Type Severity Reaction Status Date / Time No Known Drug Allergies Allergy Verified 04/15/17 13:19 - Home Medications Home Medications: Ambulatory Orders Allopurinol [Zyloprim -] 300 mg PO DAILY 05/14/15 Colchicine [Colcrys -] 0.6 mg PO DAILY 05/14/15 Insulin Lispro Protamin/Lispro [Humalog Mix 75-25 Kwikpen] 60 unit SQ HS Lansoprazole [Prevacid -] 30 mg PO DAILY 05/14/15 Metoprolol Succinate [Toprol XL -] 25 mg PO DAILY 05/14/15 Pravastatin Sodium 20 mg PO DAILY 05/14/15 Tacrolimus 1 mg PO DAILY 05/14/15 Oxycodone HCl 5 mg PO BID PRN #10 tablet MDD 2 03/28/17 Review of Systems - Review of Systems Constitutional: reports: Lethargy, Weakness HENT: reports: No Symptoms Neck: reports: No Symptoms Cardiovascular: reports: Palpitations, Shortness of Breath Respiratory: reports: Exercise Intolerance, SOB on Exertion, Wheezing Gastrointestinal: reports: Bloating, Constipation Genitourinary: reports: No Symptoms Breasts: reports: No Symptoms Reported Musculoskeletal: reports: Joint Swelling, Muscle Pain, Muscle Cramps, Muscle Weakness Integumentary: reports: No Symptoms Endocrine: reports: Unexplained Weight Gain Physical Exam Vital Signs: Vital Signs Temperature 98.2 F 04/17/17 21:29 Pulse Rate 113 H 04/17/17 21:29 Respiratory Rate 20 04/17/17 21:29 Blood Pressure 149/88 04/17/17 21:29 O2 Sat by Pulse Oximetry (%) 96 04/17/17 11:04 Constitutional: Yes: Mild Distress Eyes: Yes: EOM Intact HENT: Yes: Normocephalic Neck: Yes: Trachea Midline Cardiovascular: Yes: Tachycardia Respiratory: Yes: Rhonchi, SOB, Tachypnea, Wheezes Gastrointestinal: Yes: Abdomen, Obese Musculoskeletal: Yes: Joint Stiffness Extremities: Yes: WNL Neurological: Yes: Alert, Oriented Labs: CBC, BMP 04/16/17 06:15 04/16/17 06:15 Problem List - Problems (1) Acute exacerbation of chronic obstructive pulmonary disease (COPD) Code(s): J44.1 - CHRONIC OBSTRUCTIVE PULMONARY DISEASE W (ACUTE) EXACERBATION (2) Contusion, shoulder /upper arm Code(s): [id number] - (3) Diabetes mellitus, insulin dependent (IDDM), uncontrolled Code(s): E10.65 - TYPE 1 DIABETES MELLITUS WITH HYPERGLYCEMIA Qualifiers: Diabetes mellitus complication status: with neurologic complications Assessment/Plan Current Active Problems Acute bronchitis (Acute) Acute exacerbation of chronic obstructive pulmonary disease (COPD) (Acute) Chest pain (Acute) Diabetes (Acute) Smoker (Acute) iddm 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 ,insulin resistance copd;steroid excarcerbation blood sugars morbid obesity Laboratory Results - last 24 hr 04/15/17 04/16/17 04/16/17 15:00 11:28 16:45 POC Glucometer 463 509 Lyme Screen IgG & IgM <0.91 04/17/17 04/17/17 04/17/17 00:16 04:11 06:32 POC Glucometer 556 443 381 Lyme Screen IgG & IgM 04/17/17 11:22 POC Glucometer 497 Lyme Screen IgG & IgM Laboratory Tests 04/15/17 04/16/17 04/16/17 21:44 06:09 06:15 Sodium 134 L Potassium 5.0 Chloride 100 Carbon Dioxide 22 Anion Gap 12 BUN 29 H D Creatinine 1.5 H Creat Clearance w eGFR 45.26 POC Glucometer 267 384 Random Glucose 447 H* D 04/16/17 04/16/17 04/16/17 11:28 16:45 22:04 Sodium Potassium Chloride Carbon Dioxide Anion Gap BUN Creatinine Creat Clearance w eGFR POC Glucometer 463 509 586 Random Glucose plan: novolog achs scale adjustment for hyperglycemia novolog 70/30 38 units bid levemir 30 units hs ck hba1c
[2017-04-18] MEDS: ALBUTEROL SO4 2.5/IPRATROPIUM 0.5 INH SOL 3 ML VIAL.NEB. NEB SCH ×4 (05:42→17:10)
[2017-04-18] MEDS: INSULIN SLIDING SCALE (NOVOLOG) 1 VIAL SQ SCH ×4 (06:25→22:33)
[2017-04-18] MEDS: INSULIN (NOVOLOG MIX 70/30) 100 UNITS/ML MDV SQ SCH ×2 (06:25→17:16)
--- NOTE | 2017-04-18 08:48 | PN ---
Progress Note, Physician - Current Medication List Current Medications: Active Medications Acetaminophen (Tylenol -) 650 mg PO Q4H PRN PRN Reason: FEVER OR PAIN Albuterol/Ipratropium (Duoneb -) 1 amp NEB QIDR [facility] Last Admin: 04/18/17 05:42 Dose: 1 amp Allopurinol (Zyloprim -) 300 mg PO DAILY [facility] Last Admin: 04/17/17 11:17 Dose: 300 mg Atorvastatin Calcium (Lipitor -) 10 mg PO HS [facility] Last Admin: 04/17/17 21:04 Dose: 10 mg Ceftriaxone Sodium (Rocephin 1gm Ivpb (Pre-Docked)) 1 gm IVPB DAILY [facility] PRN Reason: Protocol Last Admin: 04/17/17 11:17 Dose: 1 gm Heparin Sodium (Porcine) (Heparin -) 5,000 unit SQ BID [facility] Last Admin: 04/17/17 21:04 Dose: 5,000 unit Insulin Aspart (Novolog Vial Sliding Scale -) 1 vial SQ ACHS [facility] PRN Reason: Protocol Last Admin: 04/18/17 06:25 Dose: 15 units Insulin Aspart (Novolog Mix 70/30 Vial) 38 units SQ BIDAC [facility] Last Admin: 04/18/17 06:25 Dose: 38 units Insulin Detemir (Levemir Vial) 30 units SQ HS [facility] Last Admin: 04/17/17 21:03 Dose: 30 units Metoprolol Succinate (Toprol Xl -) 25 mg PO DAILY [facility] Last Admin: 04/17/17 11:17 Dose: 25 mg Non-Formulary Medication (Tacrolimus [Tacrolimus]) 1 mg PO DAILY [facility] Last Admin: 04/17/17 11:17 Dose: 1 mg Oxycodone HCl (Roxicodone -) 5 mg PO Q6H PRN PRN Reason: PAIN Pantoprazole Sodium (Protonix -) 40 mg PO DAILY [facility] Last Admin: 04/17/17 11:17 Dose: 40 mg - Objective Vital Signs: Vital Signs Temperature 97.9 F 04/18/17 06:15 Pulse Rate 103 H 04/18/17 06:15 Respiratory Rate 19 04/18/17 06:15 Blood Pressure 142/79 04/18/17 06:15 O2 Sat by Pulse Oximetry (%) 95 04/17/17 21:00 Cardiovascular: Yes: Regular Rate and Rhythm Respiratory: Yes: Rhonchi. No: Wheezes Gastrointestinal: Yes: Normal Bowel Sounds, Soft Labs: CBC, BMP 04/16/17 06:15 04/16/17 06:15 INR, PTT INR 1.21 (0.82-1.09) H 04/15/17 15:00 Problem List - Problems (1) Acute bronchitis Assessment/Plan: IV ABX NEBS IV STEROIDS--TAPER PULM Code(s): J20.9 - ACUTE BRONCHITIS, UNSPECIFIED (2) Acute exacerbation of chronic obstructive pulmonary disease (COPD) Assessment/Plan: STEROIDS NEBS Code(s): J44.1 - CHRONIC OBSTRUCTIVE PULMONARY DISEASE W (ACUTE) EXACERBATION (3) Smoker Assessment/Plan: SMOKING CESSATION DISCUSSED Code(s): F17.200 - NICOTINE DEPENDENCE, UNSPECIFIED, UNCOMPLICATED (4) Diabetes Assessment/Plan: INSULIN--INCREASE AND MONITOR BS TAPER STEROIDS BGM SS ENDONOTED--MEDS ADJUSTED Code(s): E11.9 - TYPE 2 DIABETES MELLITUS WITHOUT COMPLICATIONS (5) Chest pain Assessment/Plan: ATYPICAL PROBABLY FROM COUGHING CARDIO CONSULT NOTED CE NEGATIVE Troponin, BNP 04/15/17 04/15/17 04/15/17 15:00 15:00 20:31 Troponin I < 0.02 < 0.02 B-Natriuretic Peptide 243.80 267.25 04/16/17 06:15 Troponin I < 0.02 B-Natriuretic Peptide Code(s): R07.9 - CHEST PAIN, UNSPECIFIED Qualifiers: Chest pain type: other chest pain Qualified Code(s): R07.89 - Other chest pain; R07.8 - Other chest pain (6) Back pain Assessment/Plan: monitor plan d/w pt Code(s): M54.9 - DORSALGIA, UNSPECIFIED
[2017-04-18] MEDS ORDERED: predniSONE 10 MG TABLET (UD) PO SCH (10:00)
[2017-04-18] MEDS: METOPROLOL SUCCINATE 25 MG TAB.SR.24H (FP) PO SCH (11:10)
[2017-04-18] MEDS: ALLOPURINOL 300 MG TABLET (FP) PO SCH (11:10)
[2017-04-18] MEDS: PANTOPRAZOLE 40 MG TABLET (FP) PO SCH (11:10)
[2017-04-18] MEDS: cefTRIAXone 1 GM/50 ML BAG (PRE-DOCKED) IVPB SCH (11:11)
[2017-04-18] MEDS: HEPARIN NA (PORCINE) 5,000 UNITS/ML 1ML VIAL SQ SCH ×2 (11:11→22:31)
[2017-04-18] MEDS: TACROLIMUS 1 MG PO SCH (12:34)
--- NOTE | 2017-04-18 14:52 | PN ---
Progress Note (short form) - Note Progress Note: PULMONARY RESTING COMFORTABLY SUBJECTIVE IMPROVEMENT ANICTERIC SCATTERED MILD RHONCHI S1S2 BS+ OBESE NO EDEMA LABS/MEDS/MICRO REVIEWED ACUTE BRONCHITIS NO CT EVIDENCE TO SUPPORT PNEUMONIA LIVER TRANSPLANT COPD ACTIVE SMOKER TAPERING STEROIDS/BRONCHODILATORS/ANTIBIOTICS/O2 NEEDED DVT PROPHYLAXSIS GLYCEMIC CONTROL SMOKING CESSATION OOB TO CHAIR DISCHARGE PLANNING Problem List - Problems (1) Acute exacerbation of chronic obstructive pulmonary disease (COPD) Code(s): J44.1 - CHRONIC OBSTRUCTIVE PULMONARY DISEASE W (ACUTE) EXACERBATION (2) Acute bronchitis Code(s): J20.9 - ACUTE BRONCHITIS, UNSPECIFIED (3) Smoker Code(s): F17.200 - NICOTINE DEPENDENCE, UNSPECIFIED, UNCOMPLICATED
[2017-04-18] MEDS: ATORVASTATIN CA 10 MG TABLET (FP) PO SCH (22:31)
[2017-04-18] MEDS: INSULIN DETEMIR 100 UNITS/ML MDV SQ SCH (22:32)
[2017-04-18] MEDS ORDERED: INSULIN (NOVOLOG) ASPART 100 UNITS/ML 10ML VIAL ONE (22:34)
[2017-04-18] MEDS: guaiFENesin/CODEINE 5 ML UNIT-DOSE CUPS PO PRN (22:37)
[2017-04-19] MEDS: ALBUTEROL SO4 2.5/IPRATROPIUM 0.5 INH SOL 3 ML VIAL.NEB. NEB SCH ×2 (05:38)
[2017-04-19] MEDS: INSULIN (NOVOLOG MIX 70/30) 100 UNITS/ML MDV SQ SCH (06:02)
[2017-04-19] MEDS ORDERED: INSULIN (NOVOLOG) ASPART 100 UNITS/ML 10ML VIAL ONE (06:04)
[2017-04-19] MEDS: INSULIN SLIDING SCALE (NOVOLOG) 1 VIAL SQ SCH (06:04)
[2017-04-19] MEDS: guaiFENesin/CODEINE 5 ML UNIT-DOSE CUPS PO PRN (06:05)
[2017-04-19] MEDS ORDERED: predniSONE 20 MG TABLET (UD) PO SCH (10:00)
--- NOTE | 2017-04-19 10:12 | PN ---
Progress Note, Physician Chief Complaint: Cough, SOB History of Present Illness: Patient came in the hospital for cough for 2 weeks. He has progressively gotten better. He feels much better today except dry non productive cough. - Current Medication List Current Medications: Active Medications Acetaminophen (Tylenol -) 650 mg PO Q4H PRN PRN Reason: FEVER OR PAIN Albuterol/Ipratropium (Duoneb -) 1 amp NEB QIDR [facility] Last Admin: 04/19/17 05:38 Dose: 1 amp Allopurinol (Zyloprim -) 300 mg PO DAILY [facility] Last Admin: 04/18/17 11:10 Dose: 300 mg Atorvastatin Calcium (Lipitor -) 10 mg PO HS [facility] Last Admin: 04/18/17 22:31 Dose: 10 mg Ceftriaxone Sodium (Rocephin 1gm Ivpb (Pre-Docked)) 1 gm IVPB DAILY [facility] PRN Reason: Protocol Last Admin: 04/18/17 11:11 Dose: 1 gm Guaifenesin/Codeine Phosphate (Robitussin Ac -) 5 ml PO Q8H PRN PRN Reason: COUGH Last Admin: 04/19/17 06:05 Dose: 5 ml Heparin Sodium (Porcine) (Heparin -) 5,000 unit SQ BID [facility] Last Admin: 04/18/17 22:31 Dose: 5,000 unit Insulin Aspart (Novolog Vial Sliding Scale -) 1 vial SQ ACHS [facility] PRN Reason: Protocol Last Admin: 04/19/17 06:04 Dose: 8 units Insulin Aspart (Novolog Mix 70/30 Vial) 38 units SQ BIDAC [facility] Last Admin: 04/19/17 06:02 Dose: 38 units Insulin Detemir (Levemir Vial) 30 units SQ HS [facility] Last Admin: 04/18/17 22:32 Dose: 30 units Metoprolol Succinate (Toprol Xl -) 25 mg PO DAILY [facility] Last Admin: 04/18/17 11:10 Dose: 25 mg Non-Formulary Medication (Tacrolimus [Tacrolimus]) 1 mg PO DAILY [facility] Last Admin: 04/18/17 12:34 Dose: 1 mg Pantoprazole Sodium (Protonix -) 40 mg PO DAILY [facility] Last Admin: 04/18/17 11:10 Dose: 40 mg Prednisone (Deltasone -) 20 mg PO DAILY [facility] - Objective Vital Signs: Vital Signs Temperature 97.7 F 04/19/17 06:04 Pulse Rate 100 H 06/01/17 06:04 Respiratory Rate 19 04/19/17 06:04 Blood Pressure 111/61 04/19/17 06:04 O2 Sat by Pulse Oximetry (%) 96 04/18/17 22:00 Constitutional: Yes: Well Nourished, No Distress, Calm Cardiovascular: Yes: Regular Rate and Rhythm, Murmur Respiratory: Yes: WNL, Regular Gastrointestinal: Yes: WNL, Normal Bowel Sounds Musculoskeletal: Yes: WNL Extremities: Yes: WNL Edema: No Neurological: Yes: WNL, Alert, Oriented ...Motor Strength: WNL Psychiatric: Yes: WNL, Alert, Oriented Labs: CBC, BMP 04/16/17 06:15 04/18/17 23:00 INR, PTT INR 1.21 (0.82-1.09) H 04/15/17 15:00 Problem List - Problems (1) Acute bronchitis Assessment/Plan: Feels better. Code(s): J20.9 - ACUTE BRONCHITIS, UNSPECIFIED (2) Acute exacerbation of chronic obstructive pulmonary disease (COPD) Assessment/Plan: Chronic Code(s): J44.1 - CHRONIC OBSTRUCTIVE PULMONARY DISEASE W (ACUTE) EXACERBATION (3) Chest pain Assessment/Plan: Atypical chest pain secondary to cough. Code(s): R07.9 - CHEST PAIN, UNSPECIFIED Qualifiers: Chest pain type: other chest pain Qualified Code(s): R07.89 - Other chest pain; R07.8 - Other chest pain (4) Diabetes mellitus, insulin dependent (IDDM), uncontrolled Code(s): E10.65 - TYPE 1 DIABETES MELLITUS WITH HYPERGLYCEMIA Qualifiers: Diabetes mellitus complication status: with neurologic complications Assessment/Plan Ceftin 500 mg PO BID for another 5 days Discharge today
[2017-04-19] MEDS: HEPARIN NA (PORCINE) 5,000 UNITS/ML 1ML VIAL SQ SCH (10:22)
[2017-04-19] MEDS: METOPROLOL SUCCINATE 25 MG TAB.SR.24H (FP) PO SCH (10:22)
[2017-04-19] MEDS: PANTOPRAZOLE 40 MG TABLET (FP) PO SCH (10:23)
[2017-04-19] MEDS: ALLOPURINOL 300 MG TABLET (FP) PO SCH (10:23)
[2017-04-19] MEDS: cefTRIAXone 1 GM/50 ML BAG (PRE-DOCKED) IVPB SCH (10:23)
[2017-04-19] MEDS: TACROLIMUS 1 MG PO SCH (10:23)
--- NOTE | 2017-04-19 10:37 | PN ---
Progress Note (short form) - Note Progress Note: Breathing improving but still with nonproductive cough. No fevers or chills. Last Vital Signs Temp Pulse Resp BP Pulse Ox 97.9 F 109 H 20 117/62 96 04/17/17 14:15 04/17/17 14:15 04/17/17 08:00 04/17/17 14:15 04/17/17 08:00 Gen: NAD at rest Heart: RRR Lung: decreased breath sounds at the bases Abd: soft, nontender Ext: no edema CBC, BMP 04/16/17 06:15 04/16/17 06:15 Active Medications Acetaminophen (Tylenol -) 650 mg PO Q4H PRN PRN Reason: FEVER OR PAIN Albuterol/Ipratropium (Duoneb -) 1 amp NEB QIDR [facility] Last Admin: 04/17/17 11:11 Dose: 1 amp Allopurinol (Zyloprim -) 300 mg PO DAILY [facility] Last Admin: 04/17/17 11:17 Dose: 300 mg Atorvastatin Calcium (Lipitor -) 10 mg PO HS [facility] Last Admin: 04/16/17 22:26 Dose: 10 mg Ceftriaxone Sodium (Rocephin 1gm Ivpb (Pre-Docked)) 1 gm IVPB DAILY [facility] PRN Reason: Protocol Last Admin: 04/17/17 11:17 Dose: 1 gm Heparin Sodium (Porcine) (Heparin -) 5,000 unit SQ BID [facility] Last Admin: 04/17/17 11:16 Dose: 5,000 unit Insulin Aspart (Novolog Mix 70/30 Vial) 35 units SQ BIDAC [facility] Insulin Aspart (Novolog Vial Sliding Scale -) 1 vial SQ ACHS [facility] PRN Reason: Protocol Insulin Detemir (Levemir Vial) 30 units SQ HS [facility] Methylprednisolone Sodium Succinate (Solu-Medrol -) 40 mg IVPB BID [facility] Last Admin: 04/17/17 11:17 Dose: 40 mg Metoprolol Succinate (Toprol Xl -) 25 mg PO DAILY [facility] Last Admin: 04/17/17 11:17 Dose: 25 mg Non-Formulary Medication (Tacrolimus [Tacrolimus]) 1 mg PO DAILY [facility] Last Admin: 04/17/17 11:17 Dose: 1 mg Oxycodone HCl (Roxicodone -) 5 mg PO Q6H PRN PRN Reason: PAIN Pantoprazole Sodium (Protonix -) 40 mg PO DAILY [facility] Last Admin: 04/17/17 11:17 Dose: 40 mg Laboratory Results - last 24 hr 04/18/17 04/18/17 04/18/17 12:01 16:25 22:28 POC Glucometer 346 357 456 Random Glucose 04/18/17 04/19/17 04/19/17 23:00 02:12 05:58 POC Glucometer 317 208 Random Glucose 461 H* A/P Acute COPD exacerbation Acute Bronchitis DM Smoker - Prednisone - inhaled bronchodilators - smoking cessation - DVT prophylaxis - D/C planning Dr Montiel
[2017-04-19 10:52] VITALS: BP 124/62; PULSE 102; TEMP 97.9
--- NOTE | 2017-04-19 12:24 | DS ---
Physical Examination Vital Signs: Vital Signs Temperature 97.9 F 04/19/17 10:00 Pulse Rate 102 H 04/19/17 10:00 Respiratory Rate 20 04/19/17 10:00 Blood Pressure 124/62 04/19/17 10:00 O2 Sat by Pulse Oximetry (%) 95 04/19/17 09:00 Constitutional: Yes: Well Nourished, No Distress, Calm Cardiovascular: Yes: Regular Rate and Rhythm Respiratory: Yes: Regular (Clear) Gastrointestinal: Yes: Normal Bowel Sounds Musculoskeletal: Yes: WNL Extremities: Yes: WNL Edema: No Peripheral Pulses WNL: Yes Neurological: Yes: Alert, Oriented Psychiatric: Yes: Alert, Oriented Labs: CBC, BMP 04/16/17 06:15 04/18/17 23:00 Discharge Summary Reason For Visit: COPD Current Active Problems Acute bronchitis (Acute) Acute exacerbation of chronic obstructive pulmonary disease (COPD) (Acute) Back pain (Acute) Chest pain (Acute) Diabetes (Acute) Diabetes mellitus, insulin dependent (IDDM), uncontrolled (Acute) Smoker (Acute) Procedures: Principal: CXR. CT chest Hospital Course: Patient came in the hospital with cc of cough > 2 weeks. Patient is a current everyday smoker. CXR and CT Chest was insignificant besides chronic COPD. Patient was treated with IV abx and steroids, to which he responded well. During the course of his hospitalization, he was seen by Pulmonary, Cardiology and Endocrinology. He will be going home on PO abx and tapering dose of prednisone. Condition: Improved - Instructions Diet, Activity, Other Instructions: Low Cholesterol diabetic diet. Referrals: Nam Lee MD [Primary Care Provider] - Disposition: HOME - Home Medications Comprehensive Discharge Medication List: Ambulatory Orders Allopurinol [Zyloprim -] 300 mg PO DAILY 05/14/15 Colchicine [Colcrys -] 0.6 mg PO DAILY 05/14/15 Insulin Lispro Protamin/Lispro [Humalog Mix 75-25 Kwikpen] 60 unit SQ HS Lansoprazole [Prevacid -] 30 mg PO DAILY 05/14/15 Metoprolol Succinate [Toprol XL -] 25 mg PO DAILY 05/14/15 Pravastatin Sodium 20 mg PO DAILY 05/14/15 Tacrolimus 1 mg PO DAILY 05/14/15 Oxycodone HCl 5 mg PO BID PRN #10 tablet MDD 2 03/28/17 Acetaminophen [Tylenol .Regular Strength -] 650 mg PO Q4H PRN #0 tablet Albuterol 2.5/Ipratropium 0.5 [Duoneb -] 1 amp NEB QIDR amp 04/19/17 Atorvastatin Ca [Lipitor] 10 mg PO HS tablet 04/19/17 Guaifenesin Dm [Robitussin Dm -] 20 ml PO Q6H #1 bottle 04/19/17 Insulin Sliding Scale [Novolog Vial Sliding Scale -] 1 vial SQ ACHS units 04/19 Oxycodone HCl [Roxicodone -] 5 mg PO Q6H PRN #120 tablet MDD 4 04/19/17 Pantoprazole Sodium 40 mg PO DAILY 30 Days 04/19/17 Prednisone [Deltasone -] 30 mg PO DAILY 10 Days 04/19/17
== END 2017-04-19 13:39 | disposition home or self-care (01) | DRG 192 ==
LOC: JER 13:13 → JERBED 17:32 → UNDOADMOB 17:36 → JERBED 17:36 → OBSVTOIN 18:19 → J6S 19:30
PROVIDERS: ADMIT Family Medicine; ATTEND Family Medicine
DX: J44.1 Chronic obstructive pulmonary disease with (acute) exacerbation (principal); J44.0 Chronic obstructive pulmonary disease with (acute) lower respiratory infection; J20.9 Acute bronchitis, unspecified; E10.65 Type 1 diabetes mellitus with hyperglycemia; R07.9 Chest pain, unspecified; F17.210 Nicotine dependence, cigarettes, uncomplicated; Z79.4 Long term (current) use of insulin
CPT/HCPCS: 36415; 71010-TC; 71250-TC; 80053; 81003; 81015; 82140; 82550; 82803; 82947; 83036; 83605; 83880; 84484; 85025; 85610; 85730; 86618; 86850; 86900; 86901; 87040; 87086; 90670; 93005; 93010; 94640; 97116-GP; 97161; 99282-25; G0378; J1644

== ENCOUNTER 2018-02-08 14:03 | Inpatient (IN) | payer BC, OTHER ==
[2018-02-08 14:39] VITALS: BMI 39.4
[2018-02-08 14:51] LABS: BASO % 0.3 % (0-2.0); EOS % 3.8 % (0-4.5); HEMATOCRIT 42.3 % (35.4-49); HEMOGLOBIN 14.3 GM/dL (11.7-16.9); LYMPH % 38.4 % (8-40); MCH 32.2 pg (25.7-33.7); MCHC 33.8 g/dl (32.0-35.9); MEAN CELL VOLUME 95.3 fl (80-96); MEAN PLT VOLUME 9.1 fl (7.5-11.1); MONO % 5.8 % (3.8-10.2); NEUT % 51.7 % (42.8-82.8); PLATELET COUNT 196 K/MM3 (134-434); RBC 4.44 M/mm3 (4.00-5.60); RDW 13.4 % (11.9-15.9); WHITE BLOOD COUNT 9.9 K/mm3 (4.0-10.0)
--- NOTE | 2018-02-08 14:57 | PDOC ---
Attending Attestation - HPI HPI: 02/08/18 15:05 The patient is a 77 year old male with a significant PMH of HTN, DM, and COPD who presents to the emergency department with cough for the past 2 weeks and a near syncopal episode today. The patient was seen by his PCP, Dr. Cast (nephew ) who sent him to the ER for further evaluation. In route to the ER, a rapid response was called because he became lightheaded and diaphoretic. The patient has been having difficulty taking his meds due to problems with his pharmacy but did take insulin yesterday. The patient denies LOC, leg swelling, fever, chest pain, shortness of breath, headache and dizziness. Denies chills, nausea, vomit, diarrhea and constipation. Denies dysuria, frequency, urgency and hematuria. Allergies: NKA Past surgical history: None reported. Social history: No reported alcohol, drug, or cigarette use. PCP: Dr. Cast - Physicial Exam PE: 02/08/18 15:04 GENERAL: Awake but drowsy. In no acute distress. HEAD: No signs of trauma EYES: PERRLA, EOMI, sclera anicteric, conjunctiva clear ENT: (+) Dry mucous membranes. Auricles normal inspection, nares patent. NECK: Normal ROM, supple, no JVD, or masses LUNGS: (+) Distant breath sounds. No wheezes, and no crackles HEART: Regular rate and rhythm, normal S1 and S2, no murmurs, rubs or gallops ABDOMEN: Soft, nontender, normoactive bowel sounds. No guarding, no rebound. No masses EXTREMITIES: Normal range of motion, no edema. No clubbing or cyanosis. No cords, erythema, or tenderness NEUROLOGICAL: Alert and oriented x 3. Moves all extremities. Face is symmetric. SKIN: Warm, Dry, normal turgor, no rashes or lesions noted. <Laura Kwok - Last Filed: 02/08/18 15:04> - Resident Resident Name: Gaby Boggs - ED Attending Attestation I have performed the following: I have examined & evaluated the patient, The case was reviewed & discussed with the resident, I agree w/resident's findings & plan, Exceptions are as noted - Medical Decision Making 02/08/18 14:55 77-year-old male history of diabetes and COPD here with complaining of a near syncopal episode and cough for a few weeks. Patient was seen by his nephew who is his physician earlier today and sent to the ER for chest x-ray. In route he became very lightheaded and diaphoretic. Patient reports decreased by mouth intake for the last 5 days and states that he also ran out of his medications several weeks ago denies fevers chills is currently denying cough no chest pain no other complaints no leg swelling In the ED he appears to be dehydrated with very dry mucous membranes. Lungs are with distant breath sounds but no wheezing cardiac exam is without murmurs rubs or gallops extremities are warm well perfused no noted edema neurologically he is awake and alert but drowsy Frontal diagnosis: COPD exacerbation and CO2 retention, hyperglycemia hyperosmolar syndrome, infection, pleural effusion, hypoxia, cardiac causes such as dysrhythmia. Or anemia. Plan CBC electrolytes EKG chest x-ray IV hydration acetone level patient will likely require admission pending results of tests 02/08/18 17:29 Patient with low blood sugar on lab work at 47. Tolerating by mouth here in the ED chest x-ray unremarkable plan admit patient for near syncope, continued cardiac monitoring, and hypoglycemia in lieu of poor oral intake discussed with Dr. cast who will admit the patient <Irena Mccauley - Last Filed: 02/08/18 17:30> Heart Score/ECG Review #1 General ECG Interpretation: Sinus Rhythm, Normal Rate (82), Normal Intervals, No acute ischemic changes <Irena Mccauley - Last Filed: 02/08/18 17:30>
--- NOTE | 2018-02-08 15:02 | PDOC ---
History of Present Illness - General Chief Complaint: Altered Mental Status Stated Complaint: BLOOD SUGAR ISSUES Time Seen by Provider: 02/08/18 14:44 History Source: Patient - History of Present Illness Initial Comments: 02/08/18 15:45 77 y.o. male presents as a rapid response from the lobby. As per EMR, PMH significant for IDDM, HTN and remote h/o liver transplant (on Prograf). Patient states was presenting to our facility for a CXR when he suddenly felt diaphoretic and weak and sat down. Rapid response activated. Patient states he hasn't been eating for the last 5 days, however he has been taking his insulin as regularly scheduled. Patient did not eat breakfast this morning and noted his last meal was yesterday evening but he cannot recall what he ate. Patient notes he lives at home with his and completes his ADL's in addition to driving. Patient was presenting to our facility at the behest of his PMD, Dr. Lee, for a CXR following evaluation for a 2-3 month h/o non- productive cough. At presentation patient A&O x3, jocular, no FS available in ED. ROS positive for cough. Patient denies chest pain, shortness of breath, abdominal pain, fevers/chills, recent travel or sick contacts NKDA Surgical: Liver transplant (20 years previous) Social: (+) cigarettes - 10 cigarettes daily/10 years; (-) alcohol; (-) recreational drugs PMD: Dr. Lee Past History - Past Medical History Allergies/Adverse Reactions: Allergies Allergy/AdvReac Type Severity Reaction Status Date / Time No Known Drug Allergies Allergy Verified 04/15/17 13:19 Home Medications: Ambulatory Orders Allopurinol [Zyloprim -] 300 mg PO DAILY 05/14/15 Insulin Lispro Protamin/Lispro [Humalog Mix 75-25 Kwikpen] 60 unit SQ HS Lansoprazole [Prevacid -] 30 mg PO DAILY 05/14/15 Metoprolol Succinate [Toprol XL -] 25 mg PO DAILY 05/14/15 Pravastatin Sodium 20 mg PO DAILY 05/14/15 Tacrolimus 1 mg PO DAILY 05/14/15 Anemia: No Asthma: No Cancer: No Cardiac Disorders: No CVA: No COPD: No CHF: No Dementia: No Diabetes: Yes (IDDM) GI Disorders: Yes Disorders: Yes (GOUT) HTN: Yes Hypercholesterolemia: Yes Liver Disease: Yes (TRANSPLANT 2000) Seizures: No Thyroid Disease: No - Surgical History Abdominal Surgery: Yes (JASON HERNIA REPAIR) Appendectomy: Yes Cardiac Surgery: No Cholecystectomy: Yes GI Surgery: Yes (liver) Lung Surgery: No Neurologic Surgery: No Orthopedic Surgery: No - Suicide/Smoking/Psychosocial Hx Smoking History: Smoker current status UNK Have you smoked in the past 12 months: Yes Number of Cigarettes Smoked Daily: 10 Information on smoking cessation initiated: No 'Breaking Loose' booklet given: 04/15/17 Hx Alcohol Use: No Drug/Substance Use Hx: No Substance Use Type: None Hx Substance Use Treatment: No Review of Systems - Review of Systems Constitutional: No: Chills, Fever HEENTM: No: Recent change in vision Respiratory: Yes: Cough. No: Shortness of Breath Cardiac (ROS): No: Chest Pain, Edema, Lightheadedness, Palpitations ABD/GI: Yes: Poor Appetite, Poor Fluid Intake. No: Constipated, Diarrhea, Nausea, Vomiting : No: Burning, Dysuria *Physical Exam - Vital Signs Last Vital Signs Temp Pulse Resp BP Pulse Ox 97.9 F 81 22 95/52 95 02/08/18 14:15 02/08/18 14:15 02/08/18 14:15 02/08/18 14:15 02/08/18 14:15 - Physical Exam General Appearance: Yes: Nourished, Appropriately Dressed, Other (diaphoretic) HEENT: positive: EOMI, ROLA, TM Erythema. negative: TM Bulging, TM Dull Neck: positive: Trachea midline, Supple Respiratory/Chest: positive: Lungs Clear, Normal Breath Sounds Cardiovascular: positive: S1, S2. negative: Edema, JVD, Murmur Vascular Pulses: Dorsalis-Pedis (R): 2+, Doralis-Pedis (L): 2+ Gastrointestinal/Abdominal: positive: Normal Bowel Sounds, Soft Musculoskeletal: negative: CVA Tenderness (R), CVA Tenderness (L) Extremity: positive: Normal Capillary Refill, Normal Inspection Integumentary: positive: Normal Color, Dry, Warm Neurologic: positive: machinist II-XII NML intact, Fully Oriented, Alert ED Treatment Course - LABORATORY CBC & Chemistry Diagram: 02/09/18 06:00 02/09/18 06:00 - RADIOLOGY Radiology Studies Ordered: Category Date Time Status CHEST PA & LAT [RAD] Stat Radiology 02/08/18 14:38 Ordered Medical Decision Making - Medical Decision Making 02/08/18 16:55 77 y.o. male presents w/diaphoresis. Alert @ presentation with no active medical complaints. Physical exam significant for dry mucous membrane, lungs CLTA, however distant breath sounds without any appreciable wheezing or crackles. DDx includes hypoglycemia, pneumonia, pleural effusion, arrhythmia, COPD. Will obtain CBC, CMP, EKG, CXR and ABG Awaiting FS 02/08/18 17:47 CXR negative for consolidation/infiltrate. ABG shows PO 65 and CO2 35 -- c/w clinical presentation. CMP glucose 47. Patient given PO intake with beside fingerstick BS of 79. With withhold IV dextrose and encourage continued PO intake given rapidly correcting hypoglycemia. Patient remains A&O x3. at beside agrees patient @ baseline mental status. Will admit patient for continued monitoring of hypoglycemia. Case d/w patient's PMD, Dr. Lee. Requests OBS tele admission. Will continue to monitor while in ED including Q2H FS. Patient and patient's counseled on POC. *DC/Admit/Observation/Transfer Diagnosis at time of Disposition: Hypoglycemia - Discharge Dispostion Admit: Yes - Referrals - Patient Instructions - Post Discharge Activity
[2018-02-08 15:11] LABS: ANION GAP 11 (8-16); BILIRUBIN,TOTAL 0.6 mg/dL (0.2-1.0); BLOOD UREA NITROGEN 28 mg/dL (7-18); CALCIUM 9.5 mg/dL (8.5-10.1); CHLORIDE 106 mmol/L (98-107); CO2 26 mmol/L (21-32); CREATININE 1.5 mg/dL (0.7-1.3); MAGNESIUM 2.2 mg/dL (1.8-2.4); SGOT/AST 13 U/L (15-37); SGPT/ALT 18 U/L (12-78); SODIUM 143 mmol/L (136-145); TOT PROT 7.8 g/dl (6.4-8.2)
[2018-02-08 15:14] LABS: ALK PHOS 88 U/L (45-117)
[2018-02-08 15:50] LABS: ARTERIAL BLD GAS O2 SATURATION 93.5 % (90-98.9); ARTERIAL BLOOD GAS BASE EXCESS -0.5 meq/l (-2-2); ARTERIAL BLOOD GAS PCO2 35.8 mmHg (35-45); ARTERIAL BLOOD GAS PO2 65.3 mmHg (70-100); ARTERIAL BLOOD GAS pH 7.42 (7.35-7.45)
[2018-02-08 16:06] LABS: GLUCOSE,RANDOM 43 mg/dL (74-106)
[2018-02-08] MEDS ORDERED: HEMOQUE CONTROL SOLUTION ONE (16:31)
[2018-02-08 17:11] LABS: URINE APPEARANCE CLEAR; URINE BILIRUBIN NEGATIVE (<2.0 mg/dL); URINE BLOOD 1+ (NEGATIVE); URINE COLOR YELLOW; URINE GLUCOSE (UA) NEGATIVE (NEGATIVE); URINE KETONE NEGATIVE (NEGATIVE); URINE LEUK ESTERASE NEGATIVE (NEGATIVE); URINE NITRITE NEGATIVE (NEGATIVE); URINE PROTEIN NEGATIVE (NEGATIVE)
[2018-02-08] MEDS: D5-1/2NS+20 MEQ KCL - 20 MEQ/1,000 ML INFUS.BAG IV SCH (17:13)
[2018-02-08 17:23] LABS: URINE MUCUS RARE
[2018-02-08] MEDS ORDERED: ALBUTEROL SO4 2.5/IPRATROPIUM 0.5 INH SOL 3 ML VIAL.NEB. NEB SCH (18:00)
[2018-02-08] MEDS: ALBUTEROL SO4 2.5/IPRATROPIUM 0.5 INH SOL 3 ML VIAL.NEB. NEB SCH (20:35)
[2018-02-08] MEDS ORDERED: INSULIN (NOVOLOG) ASPART 100 UNITS/ML 10ML VIAL ONE (21:24)
[2018-02-08] MEDS: INSULIN SLIDING SCALE (NOVOLOG) 1 VIAL SQ SCH (21:35)
[2018-02-08] MEDS: HEPARIN NA (PORCINE) 5,000 UNITS/ML 1ML VIAL SQ SCH (21:35)
[2018-02-08] MEDS: ATORVASTATIN CA 10 MG TABLET (FP) PO SCH (21:35)
[2018-02-09] MEDS: INSULIN SLIDING SCALE (NOVOLOG) 1 VIAL SQ SCH ×4 (06:26→21:24)
[2018-02-09] MEDS: D5-1/2NS+20 MEQ KCL - 20 MEQ/1,000 ML INFUS.BAG IV SCH (06:39)
[2018-02-09 07:19] LABS: BASO % 0.3 % (0-2.0); EOS % 4.6 % (0-4.5); HEMOGLOBIN 12.6 GM/dL (11.7-16.9); LYMPH % 30.2 % (8-40); MCH 32.4 pg (25.7-33.7); MCHC 34.1 g/dl (32.0-35.9); MEAN CELL VOLUME 94.9 fl (80-96); MEAN PLT VOLUME 9.4 fl (7.5-11.1); NEUT % 60.9 % (42.8-82.8); PLATELET COUNT 168 K/MM3 (134-434); RDW 13.3 % (11.9-15.9); WHITE BLOOD COUNT 6.7 K/mm3 (4.0-10.0)
[2018-02-09 07:48] LABS: CHLORIDE 107 mmol/L (98-107); POTASSIUM 4.3 mmol/L (3.5-5.1); SODIUM 140 mmol/L (136-145)
[2018-02-09 08:03] LABS: ALBUMIN 3.4 g/dl (3.4-5.0); ALK PHOS 71 U/L (45-117); ANION GAP 9 (8-16); BILIRUBIN,TOTAL 0.7 mg/dL (0.2-1.0); BLOOD UREA NITROGEN 24 mg/dL (7-18); CALCIUM 8.3 mg/dL (8.5-10.1); CHOLESTEROL 96 mg/dL (50-200); CO2 24 mmol/L (21-32); CREATININE 1.3 mg/dL (0.7-1.3); GLUCOSE,RANDOM 152 mg/dL (74-106); HDL CHOLESTEROL 35 mg/dL (40-60); LDL CHOLESTEROL (ONLY SJRH) 54 mg/dL (5-100); SGOT/AST 11 U/L (15-37); SGPT/ALT 11 U/L (12-78); TOT PROT 6.2 g/dl (6.4-8.2); TRIGLYCERIDES 90 mg/dL (35-160)
[2018-02-09] MEDS: ALBUTEROL SO4 2.5/IPRATROPIUM 0.5 INH SOL 3 ML VIAL.NEB. NEB SCH ×4 (08:32→20:05)
[2018-02-09] MEDS ORDERED: PT OWN MED DRAWER 7, Y5N ONE (09:19)
[2018-02-09] MEDS: HEPARIN NA (PORCINE) 5,000 UNITS/ML 1ML VIAL SQ SCH ×2 (09:22→21:23)
[2018-02-09] MEDS: PANTOPRAZOLE 40 MG TABLET (FP) PO SCH (09:22)
[2018-02-09] MEDS: metoPROLOL SUCCINATE 25 MG TAB.SR.24H (FP) PO SCH (09:23)
[2018-02-09] MEDS: ALLOPURINOL 300 MG TABLET (FP) PO SCH (09:23)
[2018-02-09] MEDS: TACROLIMUS ANHYDROUS 1 MG CAPSULE PO SCH (10:40)
--- NOTE | 2018-02-09 11:23 | CON.PULM ---
Consult Consult Specialty:: PULMONARY Referred by:: YOGESH Reason for Consultation:: COUGH - History of Present Illness Chief Complaint: COUGH/SCANT SPUTUM/ACTIVE SMOKER History of Present Illness: The patient is a 77 year old Palestinian male with a significant past medical history of diabetes, liver transplant (16 years ago), and hypertension and likely COPD from many years of smoking, presenting to the Emergency Department after having a rapid response called while in registration dept(registering for a CXR). Patient was found to have a blood glucose of 44.He was sent for a CXR due to cough and difficulty breathing. The patient reports that he has had a non productive cough for months and that he states cant bring anything up. He admits to chest pain associated with the cough and difficulty breathing He admits to a liver transplant 15 years ago, for which he takes Prograf. He is an active smoker for many years. The patient denies nausea, vomiting, and diarrhea. Patient denies palpitations. Patient denies dizziness, headache, or visual changes. Patient denies abdominal pain. 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 No: O2 Dependent Hepatobiliary: Yes: Other (LIVER TRANSPLANT). No: Cirrhosis Heme/Onc: No: Anemia Endocrine: Yes: Diabetes Mellitus - Past Surgical History Past Surgical History: Yes: Liver Transplant - Alcohol/Substance Use Hx Alcohol Use: No - Smoking History Smoking history: Current every day smoker Have you smoked in the past 12 months: Yes Aproximately how many cigarettes per day: 10 - Social History Usual Living Arrangement: With Spouse Place of : Other History of Recent Travel: No Home Medications - Allergies Allergies/Adverse Reactions: Allergies Allergy/AdvReac Type Severity Reaction Status Date / Time No Known Drug Allergies Allergy Verified 04/15/17 13:19 - Home Medications Home Medications: Ambulatory Orders Allopurinol [Zyloprim -] 300 mg PO DAILY 05/14/15 Insulin Lispro Protamin/Lispro [Humalog Mix 75-25 Kwikpen] 60 unit SQ HS Lansoprazole [Prevacid -] 30 mg PO DAILY 05/14/15 Metoprolol Succinate [Toprol XL -] 25 mg PO DAILY 05/14/15 Pravastatin Sodium 20 mg PO DAILY 05/14/15 Tacrolimus 1 mg PO DAILY 05/14/15 Review of Systems - Review of Systems Constitutional: reports: Loss of Appetite. denies: Fever Eyes: denies: Blurred Vision HENT: denies: Difficult Swallowing Neck: denies: Decreased ROM Cardiovascular: reports: Shortness of Breath. denies: Palpitations Respiratory: reports: Cough, Exercise Intolerance, SOB, SOB on Exertion. denies : Hemoptysis, Wheezing Gastrointestinal: denies: Abdominal Pain Genitourinary: denies: Burning Physical Exam Vital Sings: Vital Signs Temperature 99.6 F 02/09/18 10:00 Pulse Rate 89 02/09/18 10:00 Respiratory Rate 19 02/09/18 10:00 Blood Pressure 118/73 02/09/18 10:00 O2 Sat by Pulse Oximetry (%) 96 02/08/18 22:26 Constitutional: Yes: Calm Eyes: Yes: EOM Intact HENT: Yes: Normocephalic Neck: Yes: Trachea Midline Cardiovascular: Yes: Regular Rate and Rhythm, S1, S2 Respiratory: Yes: Rales (bibasilar) Gastrointestinal: Yes: Normal Bowel Sounds, Abdomen, Obese Renal/: Yes: WNL Breast(s): Yes: WNL Musculoskeletal: Yes: WNL Edema: No Neurological: Yes: Alert Psychiatric: Yes: Alert Labs: CBC, BMP 02/09/18 06:00 02/09/18 06:00 ABG Results ABG pH 7.42 (7.35-7.45) 02/08/18 15:40 ABG pCO2 at Pt Temp 35.8 mmHg (35-45) 02/08/18 15:40 ABG pO2 at Pt Temp 65.3 mmHg (70-100) L 02/08/18 15:40 ABG HCO3 22.9 meq/L (22-26) 02/08/18 15:40 ABG O2 Sat (Measured) 93.5 % (90-98.9) 02/08/18 15:40 ABG O2 Content 18.3 % vol (15-22) 02/08/18 15:40 ABG Base Excess -0.5 meq/l (-2-2) 02/08/18 15:40 rest reviewed Imaging - Results Chest X-ray: Report Reviewed, Image Reviewed Cat Scan: Report Reviewed, Image Reviewed EKG: Report Reviewed Problem List - Problems (1) Hypoglycemia Code(s): E16.2 - HYPOGLYCEMIA, UNSPECIFIED (2) Acute exacerbation of chronic obstructive pulmonary disease (COPD) Code(s): J44.1 - CHRONIC OBSTRUCTIVE PULMONARY DISEASE W (ACUTE) EXACERBATION (3) Diabetes Code(s): E11.9 - TYPE 2 DIABETES MELLITUS WITHOUT COMPLICATIONS Assessment/Plan I EVALUATED PATIENT LAST YEAR FOR CHRONIC COUGH DUE TO COPD. 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
--- NOTE | 2018-02-09 14:26 | CON.CARD ---
Consult Consult Specialty:: Cardiology - History of Present Illness History of Present Illness: This is a 77 year old male who presents with a rapid response for the lobby. He has a PMH of IDDM, HTN. h/o of a liver transplant (on Prograf). He was here for a CXR when he suddenly felt diaphoretic and weak, and needed to sit down. Rapid response was activated by the staff. He stated that he hasn't been eating well for the last 5 days, however he has been taking his insulin as regularly scheduled. Presently he denies cardiac symptoms. 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 No: O2 Dependent Hepatobiliary: Yes: Other (LIVER TRANSPLANT). No: Cirrhosis Endocrine: Yes: Diabetes Mellitus - Past Surgical History Past Surgical History: Yes: Liver Transplant - Alcohol/Substance Use Hx Alcohol Use: No - Smoking History Smoking history: Current every day smoker Have you smoked in the past 12 months: Yes Aproximately how many cigarettes per day: 10 - Social History Usual Living Arrangement: With Spouse History of Recent Travel: No Home Medications - Allergies Allergies/Adverse Reactions: Allergies Allergy/AdvReac Type Severity Reaction Status Date / Time No Known Drug Allergies Allergy Verified 04/15/17 13:19 - Home Medications Home Medications: Ambulatory Orders Allopurinol [Zyloprim -] 300 mg PO DAILY 05/14/15 Insulin Lispro Protamin/Lispro [Humalog Mix 75-25 Kwikpen] 60 unit SQ HS Lansoprazole [Prevacid -] 30 mg PO DAILY 05/14/15 Metoprolol Succinate [Toprol XL -] 25 mg PO DAILY 05/14/15 Pravastatin Sodium 20 mg PO DAILY 05/14/15 Tacrolimus 1 mg PO DAILY 05/14/15 Review of Systems Findings/Remarks: As per HPI Vital Signs: Vital Signs Temperature 99.6 F 02/09/18 10:00 Pulse Rate 89 02/09/18 10:00 Respiratory Rate 19 02/09/18 10:00 Blood Pressure 118/73 02/09/18 10:00 O2 Sat by Pulse Oximetry (%) 95 02/09/18 09:00 Constitutional: Yes: Well Nourished Neck: Yes: WNL Respiratory: Yes: CTA Bilaterally Gastrointestinal: Yes: Soft Cardiovascular: Yes: Regular Rate and Rhythm (NL S1S2, no MRHG) JVD: No PMI: Non-Displaced Heart Sounds: Yes: S1, S2 (NL S1S2, no MRHG) Extremities: Yes: WNL Edema: No Peripheral Pulses WNL: No Neurological: Yes: Alert, Oriented (Grossly non focal) - Other Data Labs, Other Data: CBC, BMP 02/09/18 06:00 02/09/18 06:00 Troponin, BNP 02/08/18 02/08/18 02/08/18 14:36 16:46 21:50 Troponin I < 0.02 < 0.02 B-Natriuretic Peptide 217.13 02/09/18 06:00 Troponin I < 0.02 B-Natriuretic Peptide Troponin, BNP 02/08/18 02/08/18 02/08/18 14:36 16:46 21:50 Troponin I < 0.02 < 0.02 B-Natriuretic Peptide 217.13 02/09/18 06:00 Troponin I < 0.02 B-Natriuretic Peptide Assessment/Plan Rapid Response Called for an episode of diaphoresis This was most likely secondary to hypoglycemia and not a cardiac cause Glucose was 43 Troponin levels negative Continue metoprolol 25 mg daily Continue atorvastatin 10 mg daily
--- NOTE | 2018-02-09 20:43 | PN ---
Progress Note, Physician Chief Complaint: Hypoglycemia History of Present Illness: NAD, in bed daughter at bedside BGM improved on D5w to be seen by Endocrinology seen by cardiology- no indication for tele or further cardiac workup - Current Medication List Current Medications: Active Medications Albuterol/Ipratropium (Duoneb -) 1 amp NEB RQID [facility] Last Admin: 02/09/18 16:39 Dose: 1 amp Allopurinol (Zyloprim -) 300 mg PO DAILY [facility] Last Admin: 02/09/18 09:23 Dose: 300 mg Atorvastatin Calcium (Lipitor -) 10 mg PO HS [facility] Last Admin: 02/08/18 21:35 Dose: 10 mg Heparin Sodium (Porcine) (Heparin -) 5,000 unit SQ BID [facility] Last Admin: 02/09/18 09:22 Dose: 5,000 unit Potassium Chloride/Dextrose/Sod Cl (D5-1/2ns+20 Meq Kcl -) 20 meq in 1,000 mls @ 75 mls/hr IV ASDIR [facility] Last Admin: 02/09/18 06:39 Dose: 75 mls/hr Insulin Aspart (Novolog Vial Sliding Scale -) 1 vial SQ ACHS [facility] PRN Reason: Protocol Last Admin: 02/09/18 17:13 Dose: 5 units Metoprolol Succinate (Toprol Xl -) 25 mg PO DAILY [facility] Last Admin: 02/09/18 09:23 Dose: 25 mg Pantoprazole Sodium (Protonix -) 40 mg PO DAILY [facility] Last Admin: 02/09/18 09:22 Dose: 40 mg Tacrolimus (Prograf) 1 mg PO DAILY [facility] Last Admin: 02/09/18 10:40 Dose: 1 mg - Objective Vital Signs: Vital Signs Temperature 99.3 F 02/09/18 14:00 Pulse Rate 86 02/09/18 14:00 Respiratory Rate 19 02/09/18 14:00 Blood Pressure 121/69 02/09/18 14:00 O2 Sat by Pulse Oximetry (%) 95 02/09/18 09:00 Constitutional: Yes: Well Nourished, No Distress, Calm Cardiovascular: Yes: Regular Rate and Rhythm Respiratory: Yes: Regular Gastrointestinal: Yes: Normal Bowel Sounds, Soft, Abdomen, Obese Musculoskeletal: Yes: WNL Extremities: Yes: WNL Edema: No Peripheral Pulses WNL: Yes Neurological: Yes: Alert, Oriented Psychiatric: Yes: Alert, Oriented Labs: CBC, BMP 02/09/18 06:00 02/09/18 06:00 Problem List - Problems (1) Hypoglycemia Assessment/Plan: -Took 50 units of Humalog mix 75-25 with a little piece of cake, has not been eating much lately -Endocrinology consult -D/C D5 -Insulin coverage ACHS only -A1c 6.9, may even benefit from just short acting insulin coverage along with dietary and lifestyle modification as there is increased risk of hypoglycemia compared to hyperglycemia, given advanced age and irregular eating pattern -Diabetic diet Code(s): E16.2 - HYPOGLYCEMIA, UNSPECIFIED (2) Diabetes Assessment/Plan: -A1C 6.9 -endocrinology consult -BGM -Insulin coverage ACHS only -diabetic diet-risk for hypoglycemia>hyperglycemia -D/C D5 and encourage po intake Code(s): E11.9 - TYPE 2 DIABETES MELLITUS WITHOUT COMPLICATIONS Qualifiers: Diabetes mellitus type: type 2 (3) Cough Assessment/Plan: over 4 weeks -CXR unremarkable -states happens usually if he eats something the wrong way -MBS outpatient- no urgent need for MBS, wants to go home at this time Code(s): R05 - COUGH Assessment/Plan see problem list
[2018-02-09] MEDS ORDERED: INSULIN (NOVOLOG) ASPART 100 UNITS/ML 10ML VIAL ONE (21:16)
[2018-02-09] MEDS: ATORVASTATIN CA 10 MG TABLET (FP) PO SCH (21:23)
--- NOTE | 2018-02-10 00:42 | CONSULT ---
Consult Consult Specialty:: endocrine Referred by:: nabeel lyon NP Reason for Consultation:: diabetes mellitus sp hypoglycemia - History of Present Illness Chief Complaint: low blood sugar History of Present Illness: 77 year old male with a significant PMH of HTN, DM, and COPD who presents to the emergency department with cough for the past 2 weeks and a near syncopal episode today. The patient was seen by his PCP, sent for xray evaluation for cough,and developed weakness and required assistance for hypoglycemic event.he remembers taking insulin but did not eat well that morning, upon arrival bs was 43mg/dl. 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 No: O2 Dependent Hepatobiliary: Yes: Other (LIVER TRANSPLANT). No: Cirrhosis Endocrine: Yes: Diabetes Mellitus - Past Surgical History Past Surgical History: Yes: Liver Transplant - Alcohol/Substance Use Hx Alcohol Use: No - Smoking History Smoking history: Current every day smoker Have you smoked in the past 12 months: Yes Aproximately how many cigarettes per day: 10 - Social History Usual Living Arrangement: With Spouse History of Recent Travel: No Home Medications - Allergies Allergies/Adverse Reactions: Allergies Allergy/AdvReac Type Severity Reaction Status Date / Time No Known Drug Allergies Allergy Verified 04/15/17 13:19 - Home Medications Home Medications: Ambulatory Orders Allopurinol [Zyloprim -] 300 mg PO DAILY 05/14/15 Insulin Lispro Protamin/Lispro [Humalog Mix 75-25 Kwikpen] 60 unit SQ HS Lansoprazole [Prevacid -] 30 mg PO DAILY 05/14/15 Metoprolol Succinate [Toprol XL -] 25 mg PO DAILY 05/14/15 Pravastatin Sodium 20 mg PO DAILY 05/14/15 Tacrolimus 1 mg PO DAILY 05/14/15 Review of Systems - Review of Systems Constitutional: reports: Lethargy, Weakness Eyes: reports: No Symptoms HENT: reports: No Symptoms Neck: reports: No Symptoms Cardiovascular: reports: Shortness of Breath Respiratory: reports: Exercise Intolerance, SOB on Exertion Gastrointestinal: reports: Bloating, Constipation Genitourinary: reports: No Symptoms Breasts: reports: No Symptoms Reported Musculoskeletal: reports: Muscle Cramps, Muscle Weakness Integumentary: reports: No Symptoms Neurological: reports: No Symptoms Endocrine: reports: Unexplained Weight Gain Physical Exam Vital Signs: Vital Signs Temperature 98.5 F 02/09/18 22:00 Pulse Rate 91 H 02/09/18 22:00 Respiratory Rate 19 02/09/18 22:00 Blood Pressure 101/73 02/09/18 22:00 O2 Sat by Pulse Oximetry (%) 95 02/09/18 21:00 Constitutional: Yes: Calm Eyes: Yes: EOM Intact HENT: Yes: Normocephalic Neck: Yes: Trachea Midline Cardiovascular: Yes: Regular Rate and Rhythm Respiratory: Yes: CTA Bilaterally Gastrointestinal: Yes: Normal Bowel Sounds ...Rectal Exam: Yes: Deferred Renal/: Yes: WNL Breast(s): Yes: WNL Musculoskeletal: Yes: WNL Extremities: Yes: WNL Edema: No Neurological: Yes: Alert, Oriented Labs: CBC, BMP 02/09/18 06:00 02/09/18 06:00 Problem List - Problems (1) Type 2 diabetes mellitus with autonomic neuropathy Code(s): E11.43 - TYPE 2 DIABETES W DIABETIC AUTONOMIC (POLY)NEUROPATHY (2) Hypoglycemia Code(s): E16.2 - HYPOGLYCEMIA, UNSPECIFIED (3) Acute bronchitis Code(s): J20.9 - ACUTE BRONCHITIS, UNSPECIFIED (4) Acute exacerbation of chronic obstructive pulmonary disease (COPD) Code(s): J44.1 - CHRONIC OBSTRUCTIVE PULMONARY DISEASE W (ACUTE) EXACERBATION (5) Contusion, shoulder /upper arm Code(s): [id number] - Assessment/Plan Current Active Problems Cough (Acute) Hypoglycemia (Acute) diabetes mellitus hypoglycemia liver transplant htn copd Abnormal Lab Results 02/09/18 02/09/18 02/09/18 06:00 06:00 06:00 RBC 3.90 L Eosinophils % 4.6 H BUN 24 H Random Glucose 152 H D Hemoglobin A1c % 6.9 H D Calcium 8.3 L AST 11 L ALT 11 L D Total Protein 6.2 L D HDL Cholesterol 35 L Laboratory Results - last 24 hr 02/09/18 02/09/18 02/09/18 05:28 06:00 06:00 WBC 6.7 D RBC 3.90 L Hgb 12.6 D Hct 37.0 MCV 94.9 MCH 32.4 MCHC 34.1 RDW 13.3 Plt Count 168 MPV 9.4 Neutrophils % 60.9 Lymphocytes % 30.2 D Monocytes % 4.0 Eosinophils % 4.6 H Basophils % 0.3 Sodium 140 Potassium 4.3 Chloride 107 Carbon Dioxide 24 Anion Gap 9 BUN 24 H Creatinine 1.3 Creat Clearance w eGFR 53.25 POC Glucometer 159 Random Glucose 152 H D Hemoglobin A1c % Calcium 8.3 L Total Bilirubin 0.7 AST 11 L ALT 11 L D Alkaline Phosphatase 71 Creatine Kinase 55 Troponin I < 0.02 Total Protein 6.2 L D Albumin 3.4 Triglycerides 90 Cholesterol 96 Total LDL Cholesterol 54 HDL Cholesterol 35 L TSH 1.01 02/09/18 02/09/18 02/09/18 06:00 09:00 11:50 WBC RBC Hgb Hct MCV MCH MCHC RDW Plt Count MPV Neutrophils % Lymphocytes % Monocytes % Eosinophils % Basophils % Sodium Potassium Chloride Carbon Dioxide Anion Gap BUN Creatinine Creat Clearance w eGFR POC Glucometer 198 Random Glucose Hemoglobin A1c % 6.9 H D Calcium Total Bilirubin AST ALT Alkaline Phosphatase Creatine Kinase Troponin I Total Protein Albumin Triglycerides Cholesterol Total LDL Cholesterol HDL Cholesterol TSH Cancelled 02/09/18 02/09/18 16:57 21:21 WBC RBC Hgb Hct MCV MCH MCHC RDW Plt Count MPV Neutrophils % Lymphocytes % Monocytes % Eosinophils % Basophils % Sodium Potassium Chloride Carbon Dioxide Anion Gap BUN Creatinine Creat Clearance w eGFR POC Glucometer 271 204 Random Glucose Hemoglobin A1c % Calcium Total Bilirubin AST ALT Alkaline Phosphatase Creatine Kinase Troponin I Total Protein Albumin Triglycerides Cholesterol Total LDL Cholesterol HDL Cholesterol TSH plan: bgm qid novolog insulin doses as ordered levemir 17 units daily will need future titration of dose would avoid mixed insulin since higher rate of hypoglycemia diet nutrition eval
[2018-02-10] MEDS: INSULIN SLIDING SCALE (NOVOLOG) 1 VIAL SQ SCH ×2 (06:02→11:46)
[2018-02-10] MEDS ORDERED: INSULIN DETEMIR 100 UNITS/ML MDV SQ SCH (07:00)
[2018-02-10] MEDS: ALBUTEROL SO4 2.5/IPRATROPIUM 0.5 INH SOL 3 ML VIAL.NEB. NEB SCH ×2 (08:06→11:36)
[2018-02-10] MEDS: HEPARIN NA (PORCINE) 5,000 UNITS/ML 1ML VIAL SQ SCH (10:08)
[2018-02-10] MEDS: metoPROLOL SUCCINATE 25 MG TAB.SR.24H (FP) PO SCH (10:08)
[2018-02-10] MEDS: ALLOPURINOL 300 MG TABLET (FP) PO SCH (10:09)
[2018-02-10] MEDS: TACROLIMUS ANHYDROUS 1 MG CAPSULE PO SCH (10:09)
[2018-02-10] MEDS: PANTOPRAZOLE 40 MG TABLET (FP) PO SCH (10:09)
--- NOTE | 2018-02-10 11:24 | PN ---
Progress Note, Physician Chief Complaint: Hypoglycemia History of Present Illness: NAD, in bed daughter at bedside BGM improved on D5w to be seen by Endocrinology seen by cardiology- no indication for tele or further cardiac workup - Current Medication List Current Medications: Active Medications Albuterol/Ipratropium (Duoneb -) 1 amp NEB RQID [facility] Last Admin: 02/10/18 08:06 Dose: 1 amp Allopurinol (Zyloprim -) 300 mg PO DAILY [facility] Last Admin: 02/10/18 10:09 Dose: 300 mg Atorvastatin Calcium (Lipitor -) 10 mg PO HS [facility] Last Admin: 02/09/18 21:23 Dose: 10 mg Heparin Sodium (Porcine) (Heparin -) 5,000 unit SQ BID [facility] Last Admin: 02/10/18 10:08 Dose: 5,000 unit Insulin Aspart (Novolog Vial Sliding Scale -) 1 vial SQ ACHS [facility] PRN Reason: Protocol Last Admin: 02/10/18 06:02 Dose: Not Given Insulin Detemir (Levemir Vial) 17 units SQ AM [facility] Last Admin: 02/10/18 06:02 Dose: 17 units Metoprolol Succinate (Toprol Xl -) 25 mg PO DAILY [facility] Last Admin: 02/10/18 10:08 Dose: 25 mg Pantoprazole Sodium (Protonix -) 40 mg PO DAILY [facility] Last Admin: 02/10/18 10:09 Dose: 40 mg Tacrolimus (Prograf) 1 mg PO DAILY [facility] Last Admin: 02/10/18 10:09 Dose: 1 mg - Objective Vital Signs: Vital Signs Temperature 99.1 F 02/10/18 10:00 Pulse Rate 103 H 02/10/18 10:00 Respiratory Rate 19 02/10/18 10:00 Blood Pressure 137/72 02/10/18 10:00 O2 Sat by Pulse Oximetry (%) 97 02/10/18 09:00 Constitutional: Yes: Well Nourished, No Distress, Calm Cardiovascular: Yes: Regular Rate and Rhythm Respiratory: Yes: Regular Gastrointestinal: Yes: Normal Bowel Sounds, Soft, Abdomen, Obese Musculoskeletal: Yes: WNL Extremities: Yes: WNL Edema: No Peripheral Pulses WNL: Yes Neurological: Yes: Alert, Oriented Psychiatric: Yes: Alert, Oriented Labs: CBC, BMP 02/09/18 06:00 02/09/18 06:00 Problem List - Problems (1) Hypoglycemia Assessment/Plan: -Took 50 units of Humalog mix 75-25 with a little piece of cake, has not been eating much lately -Endocrinology consult -D/C D5 -Insulin coverage ACHS only -A1c 6.9, started on Levemir 17 units in AM -Diabetic diet Code(s): E16.2 - HYPOGLYCEMIA, UNSPECIFIED (2) Diabetes Assessment/Plan: -A1C 6.9 -endocrinology consult -BGM -Insulin coverage ACHS only -diabetic diet-risk for hypoglycemia>hyperglycemia -D/C D5 and encourage po intake -Levemire 17 units daily in AM Code(s): E11.9 - TYPE 2 DIABETES MELLITUS WITHOUT COMPLICATIONS Qualifiers: Diabetes mellitus type: type 2 (3) Cough Assessment/Plan: over 4 weeks -CXR unremarkable -states happens usually if he eats something the wrong way -MBS outpatient- no urgent need for MBS, wants to go home at this time -Seen by pulmonary Code(s): R05 - COUGH Assessment/Plan see problem list
--- NOTE | 2018-02-10 12:07 | PN ---
Progress Note (short form) - Note Progress Note: PULMONARY VSS/99.0 TMAX WANTS TO GO HOME APPEARS STABLE LYING IN BED ANICTERIC DISTANT B/L BREATH SOUNDS S1S2 BS+ SOFT LESS B/L LOWER EXT EDEMA ?OF POSSIBLE CHRONIC ASPIRATION/ REPORTS COUGHING AFTER EATING LABS/MEDS/NOTES/IMAGES REVIEWED I EVALUATED PATIENT LAST YEAR FOR CHRONIC COUGH DUE TO COPD. 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
[2018-02-10 14:50] VITALS: BP 136/71; PULSE 84; TEMP 98.2
--- NOTE | 2018-02-10 21:52 | EKG ---
Test Reason : Blood Pressure : / mmHG Vent. Rate : 082 BPM Atrial Rate : 082 BPM P-R Int : 164 ms QRS Dur : 090 ms QT Int : 392 ms P-R-T Axes : 031 026 050 degrees QTc Int : 457 ms NORMAL SINUS RHYTHM NORMAL ECG WHEN COMPARED WITH ECG OF 16-APR-2017 10:46, NO SIGNIFICANT CHANGE WAS FOUND Confirmed by YAMINI WOODY MD ([id number]) on 02/10/2018 9:52:16 PM Referred By: Confirmed By:YAMINI WOODY MD
== END 2018-02-10 13:50 | disposition home or self-care (01) | DRG 638 ==
LOC: JER 14:03 → JERBED 16:31 → OBSVTOIN 16:33 → J4S 18:04
PROVIDERS: ADMIT Family Medicine; ATTEND Family Medicine
DX: E11.649 Type 2 diabetes mellitus with hypoglycemia without coma (principal); J44.1 Chronic obstructive pulmonary disease with (acute) exacerbation; Z94.4 Liver transplant status; I10 Essential (primary) hypertension; M10.9 Gout, unspecified; J44.9 Chronic obstructive pulmonary disease, unspecified; E86.0 Dehydration; F17.200 Nicotine dependence, unspecified, uncomplicated; R05 Cough
CPT/HCPCS: 36415; 36600; 71046-TC-FY; 71250-TC; 80053; 80061; 81003; 81015; 82375; 82550; 82803; 82962; 83036; 83050; 83721; 83735; 83880; 84443; 84484; 85025; 93005; 93010; 94640; 99284-25; G0378; J1644

== ENCOUNTER 2018-12-30 10:12 | Emergency (ER) | payer BC, OTHER ==
[2018-12-30 10:23] VITALS: BMI 40.7
--- NOTE | 2018-12-30 10:55 | PDOC ---
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 Pain is localized to his B/L upper quadrants, non-qualifiable, constant with no identifiable triggering or relieving factors. Has been drinking homemade cinnamon drink with little relief of pain. Three episodes of NBNB emesis as well as multiple episodes of NB stools. Denies fevers/chills. Recent evaluation at his PMD office on Sunday for the pain. As pain persisted today, he called his PMD for further evaluation and was advised to come to the ED. Last PO intake was yesterday, homemade fruit smoothie. States he compliant with his medication regimen including his immunosupressant and was last evaluated 6 months previously at [facility] without any concerning findings. Allergy: Furosemide (facial edema) Surgical: cholecystectomy, liver transplant Social: 10 cigarettes daily, denies other toxic habits PMD: Dr. Lee As per EMR, patient last evaluated in our ED in 01/2018 following a pre- syncopal episode while in radiology waiting room (rapid response), BS 47. Patient admitted for observation and glycemic control. Past History - Past Medical History Allergies/Adverse Reactions: Allergies Allergy/AdvReac Type Severity Reaction Status Date / Time No Known Drug Allergies Allergy Verified 04/15/17 13:19 Home Medications: Ambulatory Orders Allopurinol [Zyloprim -] 300 mg PO DAILY 05/14/15 Lansoprazole [Prevacid -] 30 mg PO DAILY 05/14/15 Metoprolol Succinate [Toprol XL -] 25 mg PO DAILY 05/14/15 Pravastatin Sodium 20 mg PO DAILY 05/14/15 Tacrolimus 1 mg PO DAILY 05/14/15 Insulin Detemir [Levemir Flextouch] 17 unit SQ AM #1 insuln.pen 02/10/18 Anemia: No Asthma: No Cancer: No Cardiac Disorders: No CVA: No COPD: No CHF: No Dementia: No Diabetes: Yes (IDDM) GI Disorders: Yes Disorders: Yes (GOUT) HTN: Yes Hypercholesterolemia: Yes Liver Disease: Yes (TRANSPLANT 2000) Seizures: No Thyroid Disease: No - Surgical History Abdominal Surgery: Yes ([facility]ERNIA REPAIR) Appendectomy: Yes Cardiac Surgery: No Cholecystectomy: Yes GI Surgery: Yes (liver) Lung Surgery: No Neurologic Surgery: No Orthopedic Surgery: No - Immunization History Immunization Up to Date: No - Suicide/Smoking/Psychosocial Hx Smoking History: Never smoked Have you smoked in the past 12 months: No Number of Cigarettes Smoked Daily: 10 Information on smoking cessation initiated: No 'Breaking Loose' booklet given: 04/15/17 Hx Alcohol Use: No Drug/Substance Use Hx: No Substance Use Type: None Hx Substance Use Treatment: No Review of Systems - Review of Systems Constitutional: No: Chills, Fever HEENTM: No: Recent change in vision, Throat Pain Respiratory: No: Cough, Shortness of Breath Cardiac (ROS): No: Chest Pain, Lightheadedness, Palpitations, Syncope ABD/GI: Yes: Nausea, Vomiting. No: Constipated, Diarrhea, Tarry Stools : No: Burning, Dysuria *Physical Exam - Vital Signs Last Vital Signs Temp Pulse Resp BP Pulse Ox 97.8 F 113 H 16 100/57 L 98 12/30/18 10:21 12/30/18 10:21 12/30/18 10:21 12/30/18 10:21 12/30/18 10:21 - Physical Exam General Appearance: Yes: Nourished, Obese HEENT: positive: Normal Voice, Hearing Grossly Normal Neck: positive: Trachea midline, Supple Respiratory/Chest: positive: Lungs Clear, Normal Breath Sounds Cardiovascular: positive: S1, S2. negative: Edema, JVD Vascular Pulses: Dorsalis-Pedis (R): 2+, Doralis-Pedis (L): 2+ Gastrointestinal/Abdominal: positive: Other (B/L Upper quadrant TTP, R>L with some peritoneal sign including RUQ rebound). negative: Hernia, Mass Musculoskeletal: negative: CVA Tenderness (R), CVA Tenderness (L) Extremity: positive: Normal Capillary Refill, Normal Inspection Integumentary: positive: Normal Color, Dry, Warm Neurologic: positive: Fully Oriented, Alert Moderate Sedation - Procedure Monitoring Vital Signs: Procedure Monitoring Vital Signs Temperature 97.8 F 12/30/18 10:21 Pulse Rate 113 H 12/30/18 10:21 Respiratory Rate 16 12/30/18 10:21 Blood Pressure 100/57 L 12/30/18 10:21 O2 Sat by Pulse Oximetry (%) 98 12/30/18 10:21 ED Treatment Course - LABORATORY CBC & Chemistry Diagram: 12/30/18 11:47 12/30/18 11:47 Medical Decision Making - Medical Decision Making 12/30/18 13:47 78 year old male with 4 day h/o abdominal pain Initially tachycardic (HR 113, repeat HR 90's). Abdominal TTP R>L in upper quadrants. Frontal diagnosis: gastroenteritis, colitis, diverticulitis, SBO, mesenteric ischemia. Consider acute transplant rejection though less likely as transplant remote (1999) and patient has had no prior rejeciton issues, recent evaluation w/hepatology. Will obtain CT abdomen/pelvis, RUQ U/S, Lipase, Lactic acid, Coags, Basic labs as well as Tacrolimus level. Morphine for pain control. Reassess. Cr 1.9 - will hydrate patient prior to CT. Radiology aware, consent pending. 12/30/18 15:[address] shows dilated loops of small bowel w/air fluid levels concerning for SBO Patient reassessed @ bedside VSS Pain improved with Morphine; Will give additional IV fluids Case d/w Dr. Mcbride (General Surgery) will evaluate patient @ bedside, requests consulting [facility] as patient is on immunosuppressants that may have to be stopped pre and post operatively. 12/30/18 16:58 Case d/w Rita ([facility]) - will contact 12/30/18 17:47 Case d/w from [facility], requests patient be transferred to their facility. Accepting surgeon, Dr. Andujar. 12/30/18 17:49 Call placed to [facility] Transfer Center Patient and patient's family at bedside counseled on plan of care. Amenable to admission. Additional Morphine for pain control 12/30/18 18:40 [facility] ED accepting physician Dr. Danita Arredondo Patient awaiting transfer; as per transfer center, ambulance to arrive within next 1 hour. Will inform night team of patient. *DC/Admit/Observation/Transfer Diagnosis at time of Disposition: Post op infection - Discharge Dispostion Disposition: TRANSFER ACUTE CARE/OTHER HOSP Condition at time of disposition: Stable - Referrals - Patient Instructions - Post Discharge Activity
[2018-12-30] MEDS ORDERED: SODIUM CHLORIDE 0.9% 500 ML INFUS.BAG IV ONE (11:03)
[2018-12-30] MEDS ORDERED: morphine CARPU-JECT 2 MG/1 ML DISP.SYRIN IVPUSH ONE ×2 (11:12→17:27)
[2018-12-30] MEDS ORDERED: MORPHINE SULFATE 2 MG/ML VIAL ONE ×2 (12:00→17:47)
--- NOTE | 2018-12-30 12:02 | PDOC ---
Attending Attestation - Resident Resident Name: Gaby Boggs - ED Attending Attestation I have performed the following: I have examined & evaluated the patient, The case was reviewed & discussed with the resident, I agree w/resident's findings & plan, Exceptions are as noted - HPI HPI: 12/30/18 11:40 78 M with h/o HTN, DM, COPD, Liver txplant, presenting to ED with diffuse abdominal pain. Pt states that the pain began 3 days ago. Endorses nausea and vomiting x several episodes. Denies bloody emesis, denies hematochezia or dark stools. Pt denies F/C. Denies CP/SOB. States that the pain radiates across the top of his abdomen, is constant. - Physicial Exam PE: 12/30/18 12:02 "GENERAL: Awake, alert, and fully oriented, in no acute distress. HEAD: No signs of trauma EYES: PERRLA, EOMI, sclera anicteric, conjunctiva clear ENT: Auricles normal inspection, hearing grossly normal, nares patent, oropharynx clear without exudates. Moist mucosa NECK: Nontender, no stepoffs, Normal ROM, supple, no lymphadenopathy, JVD, or masses LUNGS: Breath sounds equal, clear to auscultation bilaterally. No wheezes, and no crackles HEART: Regular rate and rhythm, normal S1 and S2, no murmurs, rubs or gallops ABDOMEN: + diffuse tenderness, no distention, normoactive bowel sounds. No guarding, no rebound. No masses EXTREMITIES: Normal range of motion, no edema. No clubbing or cyanosis. No cords, erythema, or tenderness NEUROLOGICAL: Cranial nerves II through XII intact. 5/5 strength and sensation in all extremities, Normal speech, normal gait, normal cerebellar function SKIN: Warm, Dry, normal turgor, no rashes or lesions noted. - Medical Decision Making 12/30/18 12:02 78 M with abdominal pain, N+V+D. DDx is broad, including but not limited to gastroenteritis vs SBO vs colitis/diverticulitis vs appendicitis vs mesenteric ischemia. WIll also need to evalute for acute transplant rejection. - Labs, ammonia, coags - Tacro level - CT abdomen/pelvis - Transplant US - IVF, zofran, pain control 12/30/18 16:[address] consistent with SBO will consult surgery 12/30/18 17:47 Case discussed with [facility] liver transplant team, who is requesting transfer to [facility] Will consent pt and initiate transfer 12/30/18 18:15 Pt consented to transfer
[2018-12-30 12:19] LABS: BASO % 0.3 % (0-2.0); EOS % 2.7 % (0-4.5); HEMATOCRIT 41.2 % (35.4-49); HEMOGLOBIN 14.2 GM/dL (11.7-16.9); LYMPH % 24.7 % (8-40); MCHC 34.5 g/dl (32.0-35.9); MEAN CELL VOLUME 95.6 fl (80-96); MEAN PLT VOLUME 9.4 fl (7.5-11.1); MONO % 5.6 % (3.8-10.2); NEUT % 66.7 % (42.8-82.8); PLATELET COUNT 152 K/MM3 (134-434); RBC 4.31 M/mm3 (4.00-5.60); RDW 14.6 % (11.9-15.9); WHITE BLOOD COUNT 6.3 K/mm3 (4.0-10.0)
[2018-12-30 12:41] LABS: INR 1.08 (0.83-1.09); PROTHROMBIN TIME (PATIENT) 12.7 SEC (9.7-13.0)
[2018-12-30 12:44] LABS: ACTIVATED PTT 29.3 SECONDS (25.2-36.5)
[2018-12-30 12:56] LABS: ALBUMIN 3.6 g/dl (3.4-5.0); ALK PHOS 124 U/L (45-117); ANION GAP 6 MMOL/L (8-16); BILIRUBIN,TOTAL 0.6 mg/dL (0.2-1); BLOOD UREA NITROGEN 28 mg/dL (7-18); CHLORIDE 104 mmol/L (98-107); CO2 26 mmol/L (21-32); CREATININE 1.9 mg/dL (0.55-1.3); GLUCOSE,RANDOM 137 mg/dL (74-106); LIPASE 51 U/L (73-393); POTASSIUM 4.5 mmol/L (3.5-5.1); SGOT/AST 14 U/L (15-37); SGPT/ALT 17 U/L (13-61); SODIUM 136 mmol/L (136-145); TOT PROT 7.1 g/dl (6.4-8.2)
--- NOTE | 2018-12-30 14:36 | EKG ---
Test Reason : Blood Pressure : / mmHG Vent. Rate : 084 BPM Atrial Rate : 084 BPM P-R Int : 170 ms QRS Dur : 088 ms QT Int : 380 ms P-R-T Axes : 040 025 053 degrees QTc Int : 449 ms NORMAL SINUS RHYTHM NORMAL ECG WHEN COMPARED WITH ECG OF 08-FEB-2018 14:13, NO SIGNIFICANT CHANGE WAS FOUND Confirmed by FERNANDO SRINIVASAN MD ([id number]) on 12/30/2018 2:36:20 PM Referred By: Confirmed By:FERNANDO SIRNIVASAN MD
[2018-12-30 17:08] LABS: URINE APPEARANCE CLEAR; URINE BILIRUBIN NEGATIVE (<2.0 mg/dL); URINE COLOR LTYELLOW; URINE GLUCOSE (UA) NEGATIVE (NEGATIVE); URINE KETONE NEGATIVE (NEGATIVE); URINE LEUK ESTERASE NEGATIVE (NEGATIVE); URINE NITRITE NEGATIVE (NEGATIVE); URINE PROTEIN NEGATIVE (NEGATIVE); URINE UROBILINOGEN NEGATIVE mg/dL (0.2-1.0)
[2018-12-30] MEDS ORDERED: SODIUM CHLORIDE 1,000 ML IV SCH (17:30)
--- NOTE | 2018-12-30 18:16 | CONSULT ---
Consult Consult Specialty:: General Surgery Referred by:: Dr. Boggs Reason for Consultation:: SBO s/p liver transplant - History of Present Illness Chief Complaint: mid-abdominal pain, nausea History of Present Illness: 78yo M with multiple medical history, surgical history notable for appendectomy , cholecystectomy, liver transplant 2011, unknown procedure via L lower paramedian scar, presents with lower abdominal pain since Sunday. He tried to talk with his doctor, who was not in on Sunday, and today suggested he come to ER. He had diarrhea associated yesterday and today, last at 9am, and nausea but no vomiting. No fever or chills, no urinary complaints. Had a fruit smoothie yesterday. In ER, he has normal wbc, LFTs are ok, CT was done with IV but no PO contrast showing dilated mid small bowel loops and decompressed distal loops suggestive of SBO mid-distal. He has had some IV fluids, and surgery is asked to evaluate. He is seen and examined in the ER holding area, daughter at bedside. He was sitting in chair, but able to get up onto stretcher for exam. He notes some lower abdominal pain, but is mainly tender on the left, upper and lower. Denies current nausea or other complaints. Feeling dry in the mouth. - History Source History Provided By: Patient, Family Member (daughter at bedside) Limitations to Obtaining History: No Limitations - Past Medical History Cardio/Vascular: Yes: Hyperlipdemia Pulmonary: Yes: COPD. No: O2 Dependent Gastrointestinal: Yes: GERD Hepatobiliary: Yes: Cirrhosis (h/o prior to liver tx from hepatitis contracted in [place] (per chart)), Other (s/p LIVER TRANSPLANT 1999 [facility]) Renal/: Yes: Other (s/p unknown urologic procedure (L lower paramedian scar)) Rheumatology: Yes: Gout (?) Endocrine: Yes: Diabetes Mellitus - Past Surgical History Past Surgical History: Yes: Appendectomy, Cholecystectomy, Liver Transplant Additional Surgical History: unknown ?urologic procedure via L lower paramedian scar (Dr. Nessa Ferrer? Dr. Driscoll?) pt does not recall what for - Alcohol/Substance Use Hx Alcohol Use: Yes (occasional/rarely) History of Substance Use: reports: None - Smoking History Smoking history: Current every day smoker Have you smoked in the past 12 months: Yes Aproximately how many cigarettes per day: 5 (4-6/day +/-) - Social History Usual Living Arrangement: With Spouse ADL: Independent History of Recent Travel: No Home Medications - Allergies Allergies/Adverse Reactions: Allergies Allergy/AdvReac Type Severity Reaction Status Date / Time No Known Drug Allergies Allergy Verified 04/15/17 13:19 - Home Medications Home Medications: Ambulatory Orders Allopurinol [Zyloprim -] 300 mg PO DAILY 05/14/15 Lansoprazole [Prevacid -] 30 mg PO DAILY 05/14/15 Metoprolol Succinate [Toprol XL -] 25 mg PO DAILY 05/14/15 Pravastatin Sodium 20 mg PO DAILY 05/14/15 Tacrolimus 1 mg PO DAILY 05/14/15 Insulin Detemir [Levemir Flextouch] 17 unit SQ AM #1 insuln.pen 02/10/18 Family Disease History - Family Disease History Family History: Unremarkable (noncontributory) Review of Systems - Review of Systems Constitutional: denies: Chills, Fever Eyes: denies: Blurred Vision, Recent Change in Vision HENT: reports: Other (had a cold/flu about 2-3 weeks ago, better now). denies: Difficult Swallowing, Throat Pain Neck: denies: Swollen Glands, Tenderness Cardiovascular: denies: Chest Pain, Palpitations Respiratory: denies: Cough, SOB Gastrointestinal: reports: Abdominal Pain (across mid-lower abdomen, with hpi), Diarrhea (yesterday and today with hpi), Nausea (with hpi). denies: Constipation, Vomiting Genitourinary: denies: Burning, Dysuria Musculoskeletal: denies: Back Pain, Joint Pain Integumentary: denies: Change in Color, Rash Neurological: reports: Other (uses cane to walk sometimes when out of house). denies: Dizziness, Headache Physical Exam Vital Signs: Vital Signs Temperature 97.8 F 12/30/18 10:21 Pulse Rate 113 H 12/30/18 10:21 Respiratory Rate 16 12/30/18 10:21 Blood Pressure 100/57 L 12/30/18 10:21 O2 Sat by Pulse Oximetry (%) 98 12/30/18 10:21 Constitutional: Yes: No Distress, Calm, Obese Eyes: Yes: Conjunctiva Clear, EOM Intact HENT: Yes: Atraumatic, Normocephalic Neck: Yes: Supple, Trachea Midline Cardiovascular: Yes: Regular Rate and Rhythm, Murmur (soft) Respiratory: Yes: Regular, CTA Bilaterally Gastrointestinal: Yes: Soft, Abdomen, Obese, Distention (some?), Hyperactive Bowel Sounds, Tenderness (LUQ, LLQ, very little on right, minimal epigastric, no rebound or guarding), Other (well-healed scars: left lower paramedian, R subcostal around to upper midline (hockey stick)) ...Rectal Exam: Yes: Deferred Renal/: No: CVA Tenderness - Left, CVA Tenderness - Right Musculoskeletal: No: Joint Stiffness, Joint Swelling Extremities: No: Cool, Cyanosis Edema: Yes Edema: LLE: Trace, RLE: Trace Peripheral Pulses WNL: Yes Integumentary: No: Jaundice, Rash Neurological: Yes: Alert, Oriented Psychiatric: Yes: Alert, Oriented Labs: CBC, BMP 12/30/18 11:47 12/30/18 11:47 CMP Sodium 136 mmol/L (136-145) 12/30/18 11:47 Potassium 4.5 mmol/L (3.5-5.1) 12/30/18 11:47 Chloride 104 mmol/L (98-107) 12/30/18 11:47 Carbon Dioxide 26 mmol/L (21-32) 12/30/18 11:47 Anion Gap 6 MMOL/L (8-16) L 12/30/18 11:47 BUN 28 mg/dL (7-18) H 12/30/18 11:47 Creatinine 1.9 mg/dL (0.55-1.3) H 12/30/18 11:47 Creat Clearance w eGFR 34.28 (>60) 12/30/18 11:47 Random Glucose 137 mg/dL (74-106) H 12/30/18 11:47 Lactic Acid 0.9 mmol/L (0.4-2.0) 12/30/18 11:47 Calcium 9.0 mg/dL (8.5-10.1) 12/30/18 11:47 Total Bilirubin 0.6 mg/dL (0.2-1) 12/30/18 11:47 AST 14 U/L (15-37) L 12/30/18 11:47 ALT 17 U/L (13-61) 12/30/18 11:47 Alkaline Phosphatase 124 U/L (45-117) H 12/30/18 11:47 Ammonia 24.23 umol/L (11-32) 12/30/18 11:47 Troponin I < 0.02 ng/ml (0.00-0.05) 12/30/18 11:47 Total Protein 7.1 g/dl (6.4-8.2) 12/30/18 11:47 Albumin 3.6 g/dl (3.4-5.0) 12/30/18 11:47 Lipase 51 U/L (73-393) L 12/30/18 11:47 INR, PTT INR 1.08 (0.83-1.09) 12/30/18 11:47 Urine Test Results Urine Color Ltyellow 12/30/18 11:47 Urine Appearance Clear 12/30/18 11:47 Urine pH 6.0 (5.0-8.0) 12/30/18 11:47 Ur Specific Alsey 1.024 (1.010-1.035) 12/30/18 11:47 Urine Protein Negative (NEGATIVE) 12/30/18 11:47 Urine Glucose (UA) Negative (NEGATIVE) 12/30/18 11:47 Urine Ketones Negative (NEGATIVE) 12/30/18 11:47 Urine Blood Negative (NEGATIVE) 12/30/18 11:47 Urine Nitrite Negative (NEGATIVE) 12/30/18 11:47 Urine Bilirubin Negative (<2.0 mg/dL) 12/30/18 11:47 Ur Leukocyte Esterase Negative (NEGATIVE) 12/30/18 11:47 Imaging - Results Cat Scan: Report Reviewed, Image Reviewed (images reviewed - dilated small bowel mid-abdomen with decompressed distal bowel, consistent with SBO, some hyperemia of bowel wall in dilated segment, no free air or fluid) Problem List - Problems (1) Intestinal adhesions with obstruction Assessment/Plan: likely adhesion-related SBO unclear if partial or complete - no enteral contrast used on CT keep NPO, IVF hydration NGT should be placed trend labs keep lytes normal ER contacted pt's transplant physicians, who request that he be transferred there for management I agree that he may be best served where his immunosuppressant regimen can be managed while NPO, and if he needs surgery, he is at tertiary center known to his transplant team Thank you for the opportunity to participate in the care of this patient. Code(s): K56.50 - INTESTNL ADHESIONS, UNSP TO PARTIAL VERSUS COMPLETE OBST Qualifiers: Intestinal obstruction extent: unspecified extent Qualified Code(s): K56.50 - Intestinal adhesions [bands], unspecified as to partial versus complete obstruction (2) Lower abdominal pain Code(s): R10.30 - LOWER ABDOMINAL PAIN, UNSPECIFIED (3) S/P liver transplant Code(s): Z94.4 - LIVER TRANSPLANT STATUS (4) Smoker Code(s): F17.200 - NICOTINE DEPENDENCE, UNSPECIFIED, UNCOMPLICATED (5) Type 2 diabetes mellitus with autonomic neuropathy Code(s): E11.43 - TYPE 2 DIABETES W DIABETIC AUTONOMIC (POLY)NEUROPATHY Qualifiers: Diabetes mellitus ferry terminal agent insulin use: with ferry terminal agent use Qualified Code( s): E11.43 - Type 2 diabetes mellitus with diabetic autonomic (poly)neuropathy; Z79.4 - [facility] (current) use of insulin
[2018-12-30 20:07] VITALS: BP 129/59; PULSE 77; TEMP 98.3
== END 2018-12-30 19:45 | disposition short-term general hospital (02) ==
LOC: JER 10:12
PROC: 3E033NZ Introduction of Analgesics, Hypnotics, Sedatives into Peripheral Vein, Percutaneous Approach (ICD-10-PCS; principal; 2018-12-30)
DX: K56.50 Intestinal adhesions [bands], unspecified as to partial versus complete obstruction (principal); K21.9 Gastro-esophageal reflux disease without esophagitis; J44.9 Chronic obstructive pulmonary disease, unspecified; E78.5 Hyperlipidemia, unspecified; E11.9 Type 2 diabetes mellitus without complications; Z79.4 Long term (current) use of insulin; Z94.4 Liver transplant status; M10.9 Gout, unspecified; F17.200 Nicotine dependence, unspecified, uncomplicated; Z90.49 Acquired absence of other specified parts of digestive tract
CPT/HCPCS: 36415; 74177-TC; 76705-TC; 80053; 80197; 81003; 82140; 83605; 83690; 84484; 85025; 85610; 85730; 87086; 93005; 93010; 99284-25; J7030

== ENCOUNTER 2020-11-26 15:38 | Emergency (ER) | payer BC, OTHER ==
[2020-11-26] MEDS ORDERED: BAMLANIVIMAB 700 MG in SODIUM CHLORIDE 180 ML IVPB ONE (16:17)
[2020-11-26 16:20] VITALS: BMI 35.5
[2020-11-26] MEDS ORDERED: ACETAMINOPHEN 500 MG TABLET (FP) PO ONE (16:44)
[2020-11-26] MEDS ORDERED: ACETAMINOPHEN 325 MG TABLET (FP) ONE (17:38)
[2020-11-26 18:59] LABS: BASO % 0.2 % (0-2.0); EOS % 3.4 % (0-4.5); HEMOGLOBIN 13.7 GM/dL (11.7-16.9); MCH 32.5 pg (25.7-33.7); MCHC 32.7 g/dl (32.0-35.9); MEAN CELL VOLUME 99.5 fl (80-96); MEAN PLT VOLUME 9.7 fl (7.5-11.1); MONO % 9.1 % (3.8-10.2); NEUT % 60.3 % (42.8-82.8); PLATELET COUNT 129 K/MM3 (134-434); RBC 4.22 M/mm3 (4.00-5.60); RDW 14.8 % (11.9-15.9); WHITE BLOOD COUNT 4.7 K/mm3 (4.0-10.0)
[2020-11-26 19:13] LABS: CHLORIDE 106 mmol/L (98-107); SODIUM 135 mmol/L (136-145)
[2020-11-26 19:15] LABS: ALBUMIN 3.5 g/dl (3.4-5.0); CALCIUM 8.8 mg/dL (8.5-10.1)
[2020-11-26 19:16] LABS: ANION GAP 7 MMOL/L (8-16); BLOOD UREA NITROGEN 23.4 mg/dL (7-18); CO2 22 mmol/L (21-32); GLUCOSE,RANDOM 169 mg/dL (74-106); MAGNESIUM 1.9 mg/dL (1.8-2.4)
[2020-11-26 19:19] LABS: CREATININE 1.7 mg/dL (0.55-1.3); SGOT/AST 31 U/L (15-37); SGPT/ALT 17 U/L (13-61)
[2020-11-26 19:20] LABS: BILIRUBIN,TOTAL 0.3 mg/dL (0.2-1); TOT PROT 7.2 g/dl (6.4-8.2)
[2020-11-26 19:22] LABS: ALK PHOS 131 U/L (45-117)
[2020-11-26] MEDS ORDERED: SODIUM CHLORIDE 0.9% 500 ML INFUS.BAG IV ONE (20:00)
[2020-11-26 20:18] LABS: LDH 337 U/L (87-246)
[2020-11-26 20:45] VITALS: BP 136/82; PULSE 100; TEMP 98.7
== END 2020-11-26 20:52 | disposition home or self-care (01) ==
LOC: JER 15:38
DX: U07.1 COVID-19 (principal)
CPT/HCPCS: 36415; 71046-TC-FY; 80053; 82728; 83615; 83735; 84484; 85025; 86140; 99285-25; M0239; Q0239

== ENCOUNTER 2020-11-28 14:43 | Inpatient (IN) | payer BC, OTHER ==
[2020-11-28] MEDS ORDERED: ACETAMINOPHEN INJECTION 100 ML IVPB ONE (15:24)
[2020-11-28] MEDS ORDERED: IBUPROFEN 400 MG TABLET (FP) PO ONE ×2 (16:12→16:25)
[2020-11-28 16:40] LABS: BASO % 0.2 % (0-2.0); EOS % 0.1 % (0-4.5); HEMATOCRIT 40.5 % (35.4-49); HEMOGLOBIN 13.7 GM/dL (11.7-16.9); LYMPH % 10.4 % (8-40); MCH 33.1 pg (25.7-33.7); MCHC 33.7 g/dl (32.0-35.9); MEAN PLT VOLUME 10.2 fl (7.5-11.1); MONO % 5.3 % (3.8-10.2); PLATELET COUNT 176 K/MM3 (134-434); RBC 4.13 M/mm3 (4.00-5.60); RDW 14.8 % (11.9-15.9); WHITE BLOOD COUNT 7.1 K/mm3 (4.0-10.0)
[2020-11-28 16:45] LABS: VENOUS BASE EXCESS -7.2 mmol/L (-2-2); VENOUS O2 SATURATION 40.2 % (70-80); VENOUS PCO2 38.9 mmHg (38-52); VENOUS PH 7.299 (7.310-7.410)
[2020-11-28 16:49] LABS: INR 1.26 (0.83-1.09); PROTHROMBIN TIME (PATIENT) 15.4 SEC (9.7-13.0)
[2020-11-28 16:51] LABS: ACTIVATED PTT 39.6 SECONDS (25.2-36.5)
[2020-11-28 16:58] LABS: CHLORIDE 104 mmol/L (98-107); POTASSIUM 5.2 mmol/L (3.5-5.1); SODIUM 132 mmol/L (136-145)
[2020-11-28 17:00] LABS: CALCIUM 8.6 mg/dL (8.5-10.1)
[2020-11-28 17:01] LABS: ALBUMIN 3.1 g/dl (3.4-5.0); ANION GAP 10 MMOL/L (8-16); BLOOD UREA NITROGEN 18.3 mg/dL (7-18); CO2 18 mmol/L (21-32); GLUCOSE,RANDOM 251 mg/dL (74-106)
[2020-11-28 17:03] LABS: BILIRUBIN,DIRECT 0.2 mg/dL (0.0-0.2)
[2020-11-28 17:04] LABS: CREATININE 1.7 mg/dL (0.55-1.3); SGOT/AST 48 U/L (15-37); SGPT/ALT 20 U/L (13-61)
[2020-11-28 17:05] LABS: BILIRUBIN,TOTAL 0.6 mg/dL (0.2-1); TOT PROT 7.2 g/dl (6.4-8.2)
[2020-11-28 17:06] LABS: ALK PHOS 127 U/L (45-117)
[2020-11-28 17:08] LABS: LDH 570 U/L (87-246)
[2020-11-28] MEDS ORDERED: DEXAMETHASONE SOD PHOSPHATE 10 MG/1 ML VIAL IVPUSH ONE (17:19)
[2020-11-28 17:31] LABS: EPI CELLS 34 /uL (0-25.1); HYALINE CASTS 6 /uL (0-3.1); URINE APPEARANCE CLOUDY; URINE BACTERIA 113 /uL (0-1359); URINE BILIRUBIN NEGATIVE (NEGATIVE); URINE COLOR YELLOW; URINE GLUCOSE (UA) NEGATIVE (NEGATIVE); URINE KETONE 1+ (NEGATIVE); URINE LEUK ESTERASE NEGATIVE (NEGATIVE); URINE NITRITE NEGATIVE (NEGATIVE); URINE PROTEIN 3+ (NEGATIVE); URINE WBC 16 /uL (0-25.8)
[2020-11-28] MEDS ORDERED: SODIUM CHLORIDE 0.9% 1000 ML INFUS.BAG IV ONE (17:45)
[2020-11-28 17:54] LABS: URINE RBC 65.3 /uL (0-23.9)
[2020-11-28] MEDS ORDERED: DEXAMETHASONE SOD PHOSPHATE 10 MG/1 ML VIAL ONE (17:55)
[2020-11-28] MEDS ORDERED: ALBUTEROL SO4 HFA INHALER IH PRN (20:41)
[2020-11-28] MEDS ORDERED: ACETAMINOPHEN 500 MG TABLET (FP) PO PRN (20:41)
[2020-11-28] MEDS ORDERED: AZITHROMYCIN 250 MG TABLET PO ONE (21:00)
[2020-11-28] MEDS ORDERED: CEFTRIAXONE 1 GM/50 ML BAG ONE (21:42)
[2020-11-28] MEDS ORDERED: AZITHROMYCIN 250 MG TABLET ONE (21:43)
[2020-11-28] MEDS: CEFTRIAXONE 1 GM in DEXTROSE 5%-WATER - 50 ML IVPB SCH (22:14)
[2020-11-28] MEDS ORDERED: ASCORBIC ACID 500 MG TABLET (FP) ONE (23:00)
[2020-11-28] MEDS ORDERED: ATORVASTATIN CA 10 MG TABLET (FP) ONE (23:00)
[2020-11-28] MEDS ORDERED: ENOXAPARIN NA (PORCINE) 80 MG/0.8 ML DISP.SYRIN SQ ONE (23:00)
[2020-11-28] MEDS: ATORVASTATIN CA 10 MG TABLET (FP) PO SCH (23:06)
[2020-11-28] MEDS: ENOXAPARIN NA (PORCINE) 80 MG/0.8 ML DISP.SYRIN SQ SCH (23:06)
[2020-11-28] MEDS: INSULIN SLIDING SCALE (NOVOLOG) 1 VIAL SQ SCH (23:07)
[2020-11-28] MEDS: ASCORBIC ACID 500 MG TABLET (FP) PO SCH (23:08)
[2020-11-29] MEDS: INSULIN SLIDING SCALE (NOVOLOG) 1 VIAL SQ SCH ×4 (06:08→21:22)
[2020-11-29] MEDS: INSULIN (LEVEMIR) 100 UNITS/ML UNITS SQ SCH (06:09)
[2020-11-29 07:51] LABS: HEMATOCRIT 36.2 % (35.4-49); HEMOGLOBIN 12.5 GM/dL (11.7-16.9); MCH 33.4 pg (25.7-33.7); MCHC 34.4 g/dl (32.0-35.9); MEAN CELL VOLUME 97.1 fl (80-96); MEAN PLT VOLUME 9.4 fl (7.5-11.1); PLATELET COUNT 171 K/MM3 (134-434); RBC 3.73 M/mm3 (4.00-5.60); WHITE BLOOD COUNT 4.8 K/mm3 (4.0-10.0)
[2020-11-29 08:13] LABS: POTASSIUM 5.7 mmol/L (3.5-5.1)
[2020-11-29 08:20] LABS: ALBUMIN 2.7 g/dl (3.4-5.0); BLOOD UREA NITROGEN 29.7 mg/dL (7-18); CALCIUM 8.8 mg/dL (8.5-10.1); MAGNESIUM 1.7 mg/dL (1.8-2.4)
[2020-11-29 08:22] LABS: BILIRUBIN,TOTAL 0.4 mg/dL (0.2-1); TOT PROT 6.4 g/dl (6.4-8.2)
[2020-11-29 08:23] LABS: CREATININE 2.3 mg/dL (0.55-1.3)
[2020-11-29 08:24] LABS: PHOSPHOROUS 1.8 mg/dL (2.5-4.9)
[2020-11-29] MEDS ORDERED: cefTRIAXone SODIUM 1 GM VIAL ONE (09:34)
[2020-11-29] MEDS ORDERED: DEXTROSE 5%-WATER - 50 ML IVPB ONE (09:34)
[2020-11-29] MEDS ORDERED: CHOLECALCIFEROL (VIT D3) 1,000 UNIT (25 MCG) TABLET PO SCH (10:00)
[2020-11-29] MEDS ORDERED: ZINC SULFATE 220 MG TABLET PO SCH (10:00)
[2020-11-29] MEDS ORDERED: TACROLIMUS ANHYDROUS 1 MG CAPSULE PO SCH (10:00)
[2020-11-29] MEDS ORDERED: REMDESIVIR 200 MG in SODIUM CHLORIDE 210 ML IVPB ONE (11:40)
[2020-11-29] MEDS: CHOLECALCIFEROL (VIT D3) 1,000 UNIT (25 MCG) TABLET PO SCH (12:20)
[2020-11-29] MEDS: ALLOPURINOL 300 MG TABLET (FP) PO SCH (12:21)
[2020-11-29] MEDS: ENOXAPARIN NA (PORCINE) 80 MG/0.8 ML DISP.SYRIN SQ SCH (12:21)
[2020-11-29] MEDS: ASCORBIC ACID 500 MG TABLET (FP) PO SCH ×2 (12:21→21:16)
[2020-11-29] MEDS: metoPROLOL SUCCINATE 25 MG TAB.SR.24H (FP) PO SCH (12:21)
[2020-11-29] MEDS: DEXAMETHASONE SOD PHOSPHATE 4 MG/1 ML VIAL IVPUSH SCH (12:21)
[2020-11-29] MEDS: PANTOPRAZOLE 40 MG TABLET PO SCH (12:21)
[2020-11-29] MEDS: CEFTRIAXONE 1 GM in DEXTROSE 5%-WATER - 50 ML IVPB SCH (12:22)
[2020-11-29] MEDS ORDERED: SODIUM ZIRCONIUM CYCLOSILICATE (LOKELMA) 5 GM PACKET PO ONE (18:30)
[2020-11-29] MEDS ORDERED: SODIUM CHLORIDE 0.45% 1,000 ML IV SCH (18:30)
[2020-11-29] MEDS ORDERED: MAGNESIUM OXIDE 400 MG TABLET (FP) PO ONE (18:30)
[2020-11-29] MEDS: NAPH,MB-DB/K PH,MBDB POWDER PACKET PO SCH (20:26)
[2020-11-29 20:51] LABS: EPI CELLS 19 /uL (0-25.1); HYALINE CASTS 3 /uL (0-3.1); URINE APPEARANCE CLOUDY; URINE BACTERIA 33 /uL (0-1359); URINE BILIRUBIN NEGATIVE (NEGATIVE); URINE COLOR YELLOW; URINE GLUCOSE (UA) NEGATIVE (NEGATIVE); URINE KETONE TRACE (NEGATIVE); URINE LEUK ESTERASE NEGATIVE (NEGATIVE); URINE NITRITE NEGATIVE (NEGATIVE); URINE PROTEIN 2+ (NEGATIVE); URINE RBC 10 /uL (0-23.9); URINE UROBILINOGEN 0.2 mg/dL (0.2-1.0); URINE WBC 11 /uL (0-25.8)
[2020-11-29] MEDS: ATORVASTATIN CA 10 MG TABLET (FP) PO SCH (21:16)
[2020-11-29] MEDS ORDERED: AZITHROMYCIN 250 MG TABLET PO SCH (22:00)
[2020-11-29 22:23] LABS: YEAST NONE SEEN (NEGATIVE)
[2020-11-30] MEDS: NAPH,MB-DB/K PH,MBDB POWDER PACKET PO SCH (00:19)
[2020-11-30] MEDS ORDERED: ZINC SULFATE 220 MG CAPSULE (FP) PO SCH (00:58)
[2020-11-30] MEDS: INSULIN (LEVEMIR) 100 UNITS/ML UNITS SQ SCH (06:50)
[2020-11-30] MEDS: INSULIN SLIDING SCALE (NOVOLOG) 1 VIAL SQ SCH ×4 (06:51→22:55)
[2020-11-30 08:21] LABS: POTASSIUM 4.8 mmol/L (3.5-5.1)
[2020-11-30 08:25] LABS: ALBUMIN 2.5 g/dl (3.4-5.0); BLOOD UREA NITROGEN 43.5 mg/dL (7-18); CALCIUM 8.7 mg/dL (8.5-10.1)
[2020-11-30 08:28] LABS: CREATININE 2.2 mg/dL (0.55-1.3)
[2020-11-30 08:30] LABS: BILIRUBIN,TOTAL 0.4 mg/dL (0.2-1); TOT PROT 6.2 g/dl (6.4-8.2)
[2020-11-30] MEDS ORDERED: TACROLIMUS 0.5 MG CAPSULE PO SCH (10:00)
[2020-11-30] MEDS ORDERED: DEXTROSE 5%-WATER - 50 ML IVPB ONE (11:15)
[2020-11-30] MEDS ORDERED: PT OWN MED DRAWER 7, Y5N ONE ×2 (11:15→13:28)
[2020-11-30] MEDS ORDERED: cefTRIAXone SODIUM 1 GM VIAL ONE (11:15)
[2020-11-30] MEDS: PANTOPRAZOLE 40 MG TABLET PO SCH (11:17)
[2020-11-30] MEDS: CHOLECALCIFEROL (VIT D3) 1,000 UNIT (25 MCG) TABLET PO SCH (11:17)
[2020-11-30] MEDS: CEFTRIAXONE 1 GM in DEXTROSE 5%-WATER - 50 ML IVPB SCH (11:17)
[2020-11-30] MEDS: metoPROLOL SUCCINATE 25 MG TAB.SR.24H (FP) PO SCH (11:18)
[2020-11-30] MEDS: DEXAMETHASONE SOD PHOSPHATE 4 MG/1 ML VIAL IVPUSH SCH (11:34)
[2020-11-30] MEDS ORDERED: REMDESIVIR 100 MG in SODIUM CHLORIDE 230 ML IVPB SCH ×2 (11:40→17:00)
[2020-11-30] MEDS: ASCORBIC ACID 500 MG TABLET (FP) PO SCH ×2 (12:46→21:24)
[2020-11-30] MEDS ORDERED: LACTATED RINGERS SOLUTION 1,000 ML/1,000 ML INFUS.BAG IV SCH ×2 (14:00)
[2020-11-30] MEDS ORDERED: ALPRAZolam 0.25 MG TABLET PO PRN (14:02)
[2020-11-30] MEDS: ALLOPURINOL 300 MG TABLET (FP) PO SCH (14:42)
[2020-11-30] MEDS: LACTATED RINGERS SOLUTION 1,000 ML/1,000 ML INFUS.BAG IV SCH (15:25)
[2020-11-30] MEDS ORDERED: ALBUTEROL SO4 HFA INHALER IH PRN (15:26)
[2020-11-30] MEDS: ENOXAPARIN NA (PORCINE) 80 MG/0.8 ML DISP.SYRIN SQ SCH (15:49)
[2020-11-30] MEDS: ALPRAZolam 0.25 MG TABLET PO PRN (17:45)
[2020-11-30] MEDS: AMPICILLIN - 2 GM in SODIUM CHLORIDE 100 ML IVPB SCH (18:05)
[2020-11-30] MEDS ORDERED: ENOXAPARIN NA (PORCINE) 80 MG/0.8 ML DISP.SYRIN SQ SCH (19:24)
[2020-11-30] MEDS: CHLORHEXIDINE GLUCONATE 4% CLEANSER FOR DECOLONIZATION TP SCH (21:23)
[2020-11-30] MEDS: ATORVASTATIN CA 10 MG TABLET (FP) PO SCH (21:24)
[2020-11-30] MEDS: MUPIROCIN 2% TOPICAL OINTMENT FOR DECOLONIZATION NS SCH (21:24)
[2020-11-30] MEDS ORDERED: FAMOTIDINE 20 MG/50 ML IVPB 20 MG/50 ML MG IVPB SCH (22:00)
[2020-12-01] MEDS: AMPICILLIN - 2 GM in SODIUM CHLORIDE 100 ML IVPB SCH ×3 (01:19→17:16)
[2020-12-01] MEDS ORDERED: HALOPERIDOL LACTATE 5 MG/ML IM ONE ×3 (01:49→16:40)
[2020-12-01 04:32] LABS: ARTERIAL BLD GAS O2 SATURATION 87.9 mmHg (95-98); ARTERIAL BLOOD GAS BASE EXCESS -8.2 mmol/L (-2-2); ARTERIAL BLOOD GAS PO2 58.8 mmHg (80-100); ARTERIAL BLOOD GAS pH 7.295 (7.350-7.450)
[2020-12-01 04:37] LABS: ALLENS TEST POSITIVE
[2020-12-01 04:40] LABS: VENT MODE S/T; VENT RATE 14
[2020-12-01] MEDS: INSULIN (LEVEMIR) 100 UNITS/ML UNITS SQ SCH (06:22)
[2020-12-01] MEDS: INSULIN SLIDING SCALE (NOVOLOG) 1 VIAL SQ SCH ×4 (06:23→23:23)
[2020-12-01] MEDS: ALPRAZolam 0.25 MG TABLET PO PRN (06:25)
[2020-12-01 07:09] LABS: BASO % 0.2 % (0-2.0); HEMATOCRIT 40.5 % (35.4-49); HEMOGLOBIN 13.8 GM/dL (11.7-16.9); LYMPH % 4.6 % (8-40); MCH 33.2 pg (25.7-33.7); MCHC 34.2 g/dl (32.0-35.9); MEAN CELL VOLUME 97.1 fl (80-96); MEAN PLT VOLUME 9.3 fl (7.5-11.1); MONO % 3.7 % (3.8-10.2); NEUT % 91.5 % (42.8-82.8); PLATELET COUNT 295 K/MM3 (134-434); RBC 4.17 M/mm3 (4.00-5.60); RDW 14.9 % (11.9-15.9); WHITE BLOOD COUNT 11.2 K/mm3 (4.0-10.0)
[2020-12-01 07:23] LABS: POTASSIUM 4.6 mmol/L (3.5-5.1)
[2020-12-01 07:26] LABS: ALBUMIN 2.8 g/dl (3.4-5.0); BLOOD UREA NITROGEN 58.5 mg/dL (7-18); CALCIUM 9.2 mg/dL (8.5-10.1); MAGNESIUM 1.7 mg/dL (1.8-2.4)
[2020-12-01 07:29] LABS: CREATININE 2.2 mg/dL (0.55-1.3); PHOSPHOROUS 4.5 mg/dL (2.5-4.9)
[2020-12-01 07:30] LABS: BILIRUBIN,TOTAL 0.5 mg/dL (0.2-1)
[2020-12-01 07:32] LABS: TOT PROT 6.8 g/dl (6.4-8.2)
[2020-12-01] MEDS ORDERED: MORPHINE SULFATE 2 MG/ML VIAL ONE (08:24)
[2020-12-01] MEDS ORDERED: MORPHINE SULFATE 2 MG/ML VIAL IVPUSH ONE ×2 (08:30→09:04)
[2020-12-01] MEDS: ALLOPURINOL 300 MG TABLET (FP) PO SCH (09:25)
[2020-12-01] MEDS: CHOLECALCIFEROL (VIT D3) 1,000 UNIT (25 MCG) TABLET PO SCH (09:25)
[2020-12-01] MEDS: ZINC SULFATE 220 MG CAPSULE (FP) PO SCH (09:25)
[2020-12-01] MEDS: metoPROLOL SUCCINATE 25 MG TAB.SR.24H (FP) PO SCH (09:25)
[2020-12-01] MEDS: ASCORBIC ACID 500 MG TABLET (FP) PO SCH ×2 (09:25→22:47)
[2020-12-01] MEDS ORDERED: DEXTROSE 5%-WATER - 50 ML IVPB ONE (09:29)
[2020-12-01] MEDS ORDERED: PT OWN MED DRAWER 7, Y5N ONE ×5 (09:29→18:56)
[2020-12-01] MEDS ORDERED: cefTRIAXone SODIUM 1 GM VIAL ONE (09:29)
[2020-12-01 09:31] LABS: ANISOCYTOSIS 1+; MACROCYTOSIS 1+; PLATELET ESTIMATE NORMAL
[2020-12-01] MEDS: CEFTRIAXONE 1 GM in DEXTROSE 5%-WATER - 50 ML IVPB SCH (09:32)
[2020-12-01] MEDS: ENOXAPARIN NA (PORCINE) 80 MG/0.8 ML DISP.SYRIN SQ SCH (09:32)
[2020-12-01] MEDS: DEXAMETHASONE SOD PHOSPHATE 4 MG/1 ML VIAL IVPUSH SCH (09:33)
[2020-12-01] MEDS: PANTOPRAZOLE 40 MG TABLET PO SCH (09:53)
[2020-12-01] MEDS: MUPIROCIN 2% TOPICAL OINTMENT FOR DECOLONIZATION NS SCH ×2 (09:55→22:47)
[2020-12-01] MEDS ORDERED: TACROLIMUS 0.5 MG CAPSULE PO SCH (10:00)
[2020-12-01] MEDS ORDERED: ENOXAPARIN NA (PORCINE) 80 MG/0.8 ML DISP.SYRIN SQ SCH (10:00)
[2020-12-01] MEDS ORDERED: NICOTINE 14 MG/24 HOURS TOPICAL PATCH TD SCH (10:00)
[2020-12-01] MEDS ORDERED: MAGNESIUM 2GM/50ML STERILE WATER IVPB IVPB ONE (14:00)
[2020-12-01] MEDS: LACTATED RINGERS SOLUTION 1,000 ML/1,000 ML INFUS.BAG IV SCH ×2 (16:24→17:17)
[2020-12-01] MEDS ORDERED: REMDESIVIR 100 MG in SODIUM CHLORIDE 230 ML IVPB ONE (18:00)
[2020-12-01] MEDS: ATORVASTATIN CA 10 MG TABLET (FP) PO SCH (22:47)
[2020-12-01] MEDS: CHLORHEXIDINE GLUCONATE 4% CLEANSER FOR DECOLONIZATION TP SCH (22:47)
[2020-12-02] MEDS: AMPICILLIN - 2 GM in SODIUM CHLORIDE 100 ML IVPB SCH ×2 (01:38→10:07)
[2020-12-02] MEDS ORDERED: morphine SULFATE 4 MG/ML VIAL IVPUSH ONE (03:20)
[2020-12-02] MEDS: INSULIN (LEVEMIR) 100 UNITS/ML UNITS SQ SCH (06:22)
[2020-12-02] MEDS: INSULIN SLIDING SCALE (NOVOLOG) 1 VIAL SQ SCH ×4 (06:23→21:27)
[2020-12-02 06:54] LABS: HEMATOCRIT 38.2 % (35.4-49); HEMOGLOBIN 12.9 GM/dL (11.7-16.9); MCHC 33.7 g/dl (32.0-35.9); MEAN CELL VOLUME 97.8 fl (80-96); MEAN PLT VOLUME 9.4 fl (7.5-11.1); PLATELET COUNT 299 K/MM3 (134-434); RBC 3.91 M/mm3 (4.00-5.60); RDW 15.2 % (11.9-15.9); WHITE BLOOD COUNT 9.6 K/mm3 (4.0-10.0)
[2020-12-02 07:05] LABS: POTASSIUM 5.2 mmol/L (3.5-5.1)
[2020-12-02 07:08] LABS: ALBUMIN 2.3 g/dl (3.4-5.0); BLOOD UREA NITROGEN 65.2 mg/dL (7-18); CALCIUM 8.5 mg/dL (8.5-10.1); MAGNESIUM 2.8 mg/dL (1.8-2.4)
[2020-12-02 07:11] LABS: CREATININE 2.4 mg/dL (0.55-1.3); PHOSPHOROUS 3.6 mg/dL (2.5-4.9)
[2020-12-02 07:13] LABS: BILIRUBIN,TOTAL 0.8 mg/dL (0.2-1); TOT PROT 6.2 g/dl (6.4-8.2)
[2020-12-02] MEDS ORDERED: SODIUM CHLORIDE 1,000 ML IV SCH (08:45)
[2020-12-02] MEDS: PANTOPRAZOLE 40 MG TABLET PO SCH (09:59)
[2020-12-02] MEDS: ZINC SULFATE 220 MG CAPSULE (FP) PO SCH (09:59)
[2020-12-02] MEDS: ALLOPURINOL 300 MG TABLET (FP) PO SCH (10:00)
[2020-12-02] MEDS: metoPROLOL SUCCINATE 25 MG TAB.SR.24H (FP) PO SCH (10:00)
[2020-12-02] MEDS: ASCORBIC ACID 500 MG TABLET (FP) PO SCH ×2 (10:00→21:28)
[2020-12-02] MEDS: CHOLECALCIFEROL (VIT D3) 1,000 UNIT (25 MCG) TABLET PO SCH (10:00)
[2020-12-02] MEDS ORDERED: cefTRIAXone SODIUM 1 GM VIAL ONE (10:03)
[2020-12-02] MEDS ORDERED: DEXTROSE 5%-WATER - 50 ML IVPB ONE (10:03)
[2020-12-02] MEDS ORDERED: PT OWN MED DRAWER 7, Y5N ONE ×2 (10:05→10:09)
[2020-12-02] MEDS: ENOXAPARIN NA (PORCINE) 80 MG/0.8 ML DISP.SYRIN SQ SCH (10:05)
[2020-12-02] MEDS: CEFTRIAXONE 1 GM in DEXTROSE 5%-WATER - 50 ML IVPB SCH (10:06)
[2020-12-02] MEDS: DEXAMETHASONE SOD PHOSPHATE 4 MG/1 ML VIAL IVPUSH SCH (10:06)
[2020-12-02] MEDS: MUPIROCIN 2% TOPICAL OINTMENT FOR DECOLONIZATION NS SCH ×2 (10:06→21:28)
[2020-12-02] MEDS: NICOTINE 21 MG/24 HOURS TOPICAL PATCH TD SCH (10:07)
[2020-12-02] MEDS ORDERED: MORPHINE SULFATE 2 MG/ML VIAL IVPUSH ONE (11:29)
[2020-12-02] MEDS ORDERED: MORPHINE SULFATE 2 MG/ML VIAL ONE (11:32)
[2020-12-02] MEDS ORDERED: HALOPERIDOL LACTATE 5 MG/ML IM ONE (13:55)
[2020-12-02] MEDS ORDERED: VANCOMYCIN 1 GRAM (PRE-DOCKED) 1,000 MG/250 ML BAG IVPB ONE (15:36)
[2020-12-02] MEDS ORDERED: MORPHINE SULFATE 2 MG/ML VIAL IVPUSH PRN (16:49)
[2020-12-02] MEDS ORDERED: REMDESIVIR 100 MG in SODIUM CHLORIDE 230 ML IVPB ONE (18:00)
[2020-12-02] MEDS ORDERED: AMINO ACIDS 4.25%/D5W 1,000 ML IV SCH (18:45)
[2020-12-02] MEDS: SODIUM CHLORIDE 0.45% 1,000 ML IV SCH (21:15)
[2020-12-02] MEDS: CHLORHEXIDINE GLUCONATE 4% CLEANSER FOR DECOLONIZATION TP SCH (21:27)
[2020-12-02] MEDS: ATORVASTATIN CA 10 MG TABLET (FP) PO SCH (21:27)
[2020-12-02 22:17] LABS: ARTERIAL BLOOD GAS BASE EXCESS -8.9 mmol/L (-2-2); ARTERIAL BLOOD GAS PO2 155.7 mmHg (80-100)
[2020-12-02 22:19] LABS: ARTERIAL BLOOD GAS pH 7.061 (7.350-7.450)
[2020-12-02 22:20] LABS: ALLENS TEST POSITIVE; VENT RATE 14
[2020-12-02 22:37] LABS: BASO % 0.1 % (0-2.0); HEMATOCRIT 39.9 % (35.4-49); HEMOGLOBIN 12.7 GM/dL (11.7-16.9); LYMPH % 2.8 % (8-40); MCH 31.8 pg (25.7-33.7); MCHC 31.7 g/dl (32.0-35.9); MEAN CELL VOLUME 100.2 fl (80-96); MEAN PLT VOLUME 9.8 fl (7.5-11.1); NEUT % 95.1 % (42.8-82.8); PLATELET COUNT 304 K/MM3 (134-434); RBC 3.98 M/mm3 (4.00-5.60); RDW 15.9 % (11.9-15.9); WHITE BLOOD COUNT 12.2 K/mm3 (4.0-10.0)
[2020-12-02 23:06] LABS: ALBUMIN 2.4 g/dl (3.4-5.0); BLOOD UREA NITROGEN 77.9 mg/dL (7-18); CALCIUM 8.9 mg/dL (8.5-10.1); MAGNESIUM 2.6 mg/dL (1.8-2.4)
[2020-12-02 23:08] LABS: CREATININE 2.2 mg/dL (0.55-1.3)
[2020-12-02 23:09] LABS: PHOSPHOROUS 5.8 mg/dL (2.5-4.9)
[2020-12-02 23:10] LABS: BILIRUBIN,TOTAL 0.4 mg/dL (0.2-1); TOT PROT 6.4 g/dl (6.4-8.2)
[2020-12-02] MEDS ORDERED: NALOXONE HCL 0.4 MG/ML VIAL IVPUSH ONE (23:18)
[2020-12-02 23:20] LABS: POTASSIUM 6.5 mmol/L (3.5-5.1)
[2020-12-02 23:52] LABS: ARTERIAL BLD GAS O2 SATURATION 95.5 mmHg (95-98); ARTERIAL BLOOD GAS BASE EXCESS -10.7 mmol/L (-2-2); ARTERIAL BLOOD GAS PO2 113.6 mmHg (80-100)
[2020-12-02 23:54] LABS: ALLENS TEST POSITIVE
[2020-12-02 23:55] LABS: VENT RATE 30
[2020-12-02 23:56] LABS: PLATELET ESTIMATE NORMAL
[2020-12-02 23:57] LABS: ARTERIAL BLOOD GAS pH 7.024 (7.350-7.450)
[2020-12-03] MEDS ORDERED: RAPID SEQUENCE INTUBATION KIT NR ONE (00:19)
[2020-12-03] MEDS ORDERED: PHENYLEPHRINE HCL 10 MG/1 ML SINGLE DOSE VIAL ONE (00:45)
[2020-12-03] MEDS ORDERED: MIDAZOLAM 0 MG/0 ML MG IVPB ONE (00:47)
[2020-12-03] MEDS ORDERED: PROPOFOL 1,000,000 MCG/100 ML VIAL ONE (00:50)
[2020-12-03] MEDS ORDERED: ROCURONIUM BROMIDE 50 MG/5 ML VIAL IV ONE (01:20)
[2020-12-03] MEDS: PROPOFOL 1,000,000 MCG/100 ML VIAL IVPB SCH ×2 (01:22→22:00)
[2020-12-03 03:00] LABS: ARTERIAL BLD GAS O2 SATURATION 91.8 mmHg (95-98); ARTERIAL BLOOD GAS BASE EXCESS -8.8 mmol/L (-2-2); ARTERIAL BLOOD GAS PO2 87.1 mmHg (80-100)
[2020-12-03 03:02] LABS: ALLENS TEST POSITIVE; VENT MODE A/C; VENT RATE 25
[2020-12-03 04:33] LABS: CALCIUM 8.4 mg/dL (8.5-10.1)
[2020-12-03 04:34] LABS: BLOOD UREA NITROGEN 83.6 mg/dL (7-18); MAGNESIUM 2.6 mg/dL (1.8-2.4)
[2020-12-03 04:38] LABS: CREATININE 2.7 mg/dL (0.55-1.3); PHOSPHOROUS 5.9 mg/dL (2.5-4.9)
[2020-12-03 05:06] LABS: POTASSIUM 6.7 mmol/L (3.5-5.1)
[2020-12-03] MEDS ORDERED: CALCIUM CHLORIDE 1 GM/10 ML *DISP.SYRIN ONE (05:16)
[2020-12-03] MEDS ORDERED: DEXTROSE 50%-WATER 25 GM/50 ML DISP.SYRIN ONE (05:16)
[2020-12-03] MEDS ORDERED: INSULIN REGULAR HUMAN 100 UNITS/ML *VIAL SQ ONE (05:18)
[2020-12-03] MEDS ORDERED: DEXTROSE 50%-WATER - 25 GM/50 ML VIAL IVPUSH ONE (05:18)
[2020-12-03] MEDS ORDERED: CALCIUM GLUCONATE 10% - 1,000 MG/10 ML VIAL IVPUSH ONE (05:18)
[2020-12-03] MEDS ORDERED: SODIUM ZIRCONIUM CYCLOSILICATE (LOKELMA) 5 GM PACKET PO ONE ×2 (05:19→12:00)
[2020-12-03] MEDS ORDERED: SODIUM BICARBONATE 8.4% 50 MEQ/50 ML VIAL ONE (06:07)
[2020-12-03] MEDS ORDERED: SODIUM BICARBONATE 8.4% - 75 MEQ in DEXTROSE 5%-WATER - 1,000 ML IV SCH (06:15)
[2020-12-03] MEDS ORDERED: SODIUM BICARBONATE 8.4% 50 MEQ/50 ML DISP.SYRIN IVPUSH ONE (06:16)
[2020-12-03] MEDS: INSULIN (LEVEMIR) 100 UNITS/ML UNITS SQ SCH (06:55)
[2020-12-03] MEDS: INSULIN SLIDING SCALE (NOVOLOG) 1 VIAL SQ SCH ×4 (06:55→22:24)
[2020-12-03 09:40] LABS: HEMATOCRIT 34.2 % (35.4-49); MCH 32.7 pg (25.7-33.7); MEAN CELL VOLUME 102.2 fl (80-96); MEAN PLT VOLUME 9.3 fl (7.5-11.1); PLATELET COUNT 246 K/MM3 (134-434); RBC 3.35 M/mm3 (4.00-5.60); RDW 16.3 % (11.9-15.9); WHITE BLOOD COUNT 8.6 K/mm3 (4.0-10.0)
[2020-12-03] MEDS ORDERED: PT OWN MED DRAWER 7, Y5N ONE (09:53)
[2020-12-03] MEDS ORDERED: DEXTROSE 5%-WATER - 50 ML IVPB ONE (09:54)
[2020-12-03] MEDS ORDERED: cefTRIAXone SODIUM 1 GM VIAL ONE (09:54)
[2020-12-03] MEDS: ALLOPURINOL 300 MG TABLET (FP) PO SCH (09:57)
[2020-12-03] MEDS: PANTOPRAZOLE 40 MG TABLET PO SCH (09:57)
[2020-12-03] MEDS: DEXAMETHASONE SOD PHOSPHATE 4 MG/1 ML VIAL IVPUSH SCH (09:58)
[2020-12-03] MEDS: CEFTRIAXONE 1 GM in DEXTROSE 5%-WATER - 50 ML IVPB SCH (09:58)
[2020-12-03] MEDS: metoPROLOL SUCCINATE 25 MG TAB.SR.24H (FP) PO SCH (09:58)
[2020-12-03] MEDS: ASCORBIC ACID 500 MG TABLET (FP) PO SCH ×2 (09:58→22:24)
[2020-12-03] MEDS: ZINC SULFATE 220 MG CAPSULE (FP) PO SCH (09:58)
[2020-12-03] MEDS: ENOXAPARIN NA (PORCINE) 80 MG/0.8 ML DISP.SYRIN SQ SCH (09:59)
[2020-12-03] MEDS: MUPIROCIN 2% TOPICAL OINTMENT FOR DECOLONIZATION NS SCH ×2 (09:59→22:23)
[2020-12-03] MEDS: NICOTINE 21 MG/24 HOURS TOPICAL PATCH TD SCH (09:59)
[2020-12-03] MEDS: CHOLECALCIFEROL (VIT D3) 1,000 UNIT (25 MCG) TABLET PO SCH (09:59)
[2020-12-03 10:03] LABS: POTASSIUM 4.6 mmol/L (3.5-5.1)
[2020-12-03 10:06] LABS: CALCIUM 7.5 mg/dL (8.5-10.1)
[2020-12-03 10:07] LABS: ALBUMIN 1.8 g/dl (3.4-5.0); BLOOD UREA NITROGEN 80.5 mg/dL (7-18); MAGNESIUM 2.3 mg/dL (1.8-2.4)
[2020-12-03 10:11] LABS: BILIRUBIN,TOTAL 0.4 mg/dL (0.2-1); CREATININE 2.6 mg/dL (0.55-1.3); PHOSPHOROUS 3.7 mg/dL (2.5-4.9); TOT PROT 4.9 g/dl (6.4-8.2)
[2020-12-03 10:42] LABS: ERYTHROCYTE SEDIMENTATION RATE 69 mm/hr (0-20)
[2020-12-03 11:22] LABS: POTASSIUM 5.7 mmol/L (3.5-5.1)
[2020-12-03 11:23] LABS: BLOOD UREA NITROGEN 93.6 mg/dL (7-18); CALCIUM 9.1 mg/dL (8.5-10.1)
[2020-12-03 13:49] LABS: ARTERIAL BLOOD GAS pH 7.203 (7.350-7.450)
[2020-12-03 13:50] LABS: ARTERIAL BLD GAS O2 SATURATION 97.8 mmHg (95-98); ARTERIAL BLOOD GAS BASE EXCESS -7.8 mmol/L (-2-2)
[2020-12-03 13:51] LABS: ALLENS TEST POSITIVE; VENT MODE AC; VENT RATE 18
[2020-12-03] MEDS ORDERED: TOCILIZUMAB (ACTEMRA) 200 MG/10 ML VIAL IVPB ONE (16:49)
[2020-12-03] MEDS ORDERED: TOCILIZUMAB 800 MG in SODIUM CHLORIDE 60 ML IVPB ONE (18:00)
[2020-12-03] MEDS: SODIUM CHLORIDE 0.45% 1,000 ML IV SCH (21:00)
[2020-12-03] MEDS: CHLORHEXIDINE GLUCONATE 4% CLEANSER FOR DECOLONIZATION TP SCH (22:23)
[2020-12-03] MEDS: ATORVASTATIN CA 10 MG TABLET (FP) PO SCH (22:24)
[2020-12-04] MEDS: PROPOFOL 1,000,000 MCG/100 ML VIAL IVPB SCH (06:33)
[2020-12-04] MEDS: INSULIN SLIDING SCALE (NOVOLOG) 1 VIAL SQ SCH ×3 (06:33→17:19)
[2020-12-04] MEDS: INSULIN (LEVEMIR) 100 UNITS/ML UNITS SQ SCH (06:34)
[2020-12-04 07:36] LABS: HEMATOCRIT 35.5 % (35.4-49); HEMOGLOBIN 11.4 GM/dL (11.7-16.9); MCH 32.4 pg (25.7-33.7); MCHC 32.2 g/dl (32.0-35.9); MEAN CELL VOLUME 100.7 fl (80-96); MEAN PLT VOLUME 10.1 fl (7.5-11.1); PLATELET COUNT 218 K/MM3 (134-434); RBC 3.52 M/mm3 (4.00-5.60); RDW 15.4 % (11.9-15.9)
[2020-12-04 07:46] LABS: POTASSIUM 5.7 mmol/L (3.5-5.1)
[2020-12-04 08:00] LABS: CALCIUM 8.6 mg/dL (8.5-10.1); MAGNESIUM 2.5 mg/dL (1.8-2.4)
[2020-12-04 08:03] LABS: CREATININE 3.9 mg/dL (0.55-1.3)
[2020-12-04 08:04] LABS: BILIRUBIN,TOTAL 0.3 mg/dL (0.2-1); PHOSPHOROUS 5.1 mg/dL (2.5-4.9)
[2020-12-04 08:06] LABS: TOT PROT 5.4 g/dl (6.4-8.2)
[2020-12-04 08:13] LABS: BLOOD UREA NITROGEN 114.5 mg/dL (7-18)
[2020-12-04] MEDS ORDERED: cefTRIAXone SODIUM 1 GM VIAL ONE (09:37)
[2020-12-04] MEDS ORDERED: DEXTROSE 5%-WATER - 50 ML IVPB ONE (09:37)
[2020-12-04] MEDS: MUPIROCIN 2% TOPICAL OINTMENT FOR DECOLONIZATION NS SCH ×2 (09:47→22:30)
[2020-12-04] MEDS ORDERED: HEPARIN NA (PORCINE) 5,000 UNITS/ML 1ML VIAL IVPUSH PRN ×2 (09:48)
[2020-12-04] MEDS: DEXAMETHASONE SOD PHOSPHATE 4 MG/1 ML VIAL IVPUSH SCH (09:48)
[2020-12-04] MEDS: NICOTINE 21 MG/24 HOURS TOPICAL PATCH TD SCH (09:50)
[2020-12-04] MEDS: CEFTRIAXONE 1 GM in DEXTROSE 5%-WATER - 50 ML IVPB SCH (09:51)
[2020-12-04] MEDS: ASCORBIC ACID 500 MG TABLET (FP) PO SCH ×2 (09:51→22:04)
[2020-12-04] MEDS: CHOLECALCIFEROL (VIT D3) 1,000 UNIT (25 MCG) TABLET PO SCH (09:51)
[2020-12-04] MEDS: ZINC SULFATE 220 MG CAPSULE (FP) PO SCH (09:51)
[2020-12-04] MEDS: ALLOPURINOL 300 MG TABLET (FP) PO SCH (09:51)
[2020-12-04] MEDS: PANTOPRAZOLE 40 MG TABLET PO SCH (09:51)
[2020-12-04] MEDS: metoPROLOL SUCCINATE 25 MG TAB.SR.24H (FP) PO SCH (09:52)
[2020-12-04] MEDS ORDERED: PT OWN MED DRAWER 7, Y5N ONE ×2 (12:27→12:28)
[2020-12-04] MEDS: SODIUM ZIRCONIUM CYCLOSILICATE (LOKELMA) 5 GM PACKET PO SCH (20:03)
[2020-12-04] MEDS ORDERED: HEPARIN NA (PORCINE) 5,000 UNITS/ML 1ML VIAL IVPUSH ONE (22:00)
[2020-12-04] MEDS: ATORVASTATIN CA 10 MG TABLET (FP) PO SCH (22:04)
[2020-12-04] MEDS: CHLORHEXIDINE GLUCONATE 4% CLEANSER FOR DECOLONIZATION TP SCH (22:30)
[2020-12-04] MEDS: HEPARIN INFUSION - 25,000 UNITS/500 ML INFUS.BAG IVPB SCH (22:32)
[2020-12-05] MEDS: INSULIN SLIDING SCALE (NOVOLOG) 1 VIAL SQ SCH ×5 (00:15→22:57)
[2020-12-05] MEDS: SODIUM CHLORIDE 0.45% 1,000 ML IV SCH ×2 (00:16→22:55)
[2020-12-05 06:51] LABS: ALLENS TEST POSITIVE; ARTERIAL BLD GAS O2 SATURATION 93.4 mmHg (95-98); ARTERIAL BLOOD GAS BASE EXCESS -10.9 mmol/L (-2-2); ARTERIAL BLOOD GAS PO2 92.3 mmHg (80-100)
[2020-12-05 06:52] LABS: VENT MODE A/C; VENT RATE 20
[2020-12-05 06:55] LABS: ARTERIAL BLOOD GAS pH 7.082 (7.350-7.450)
[2020-12-05 07:06] LABS: HEMATOCRIT 37.5 % (35.4-49); HEMOGLOBIN 12.3 GM/dL (11.7-16.9); MCHC 32.9 g/dl (32.0-35.9); MEAN CELL VOLUME 100.2 fl (80-96); MEAN PLT VOLUME 9.9 fl (7.5-11.1); PLATELET COUNT 251 K/MM3 (134-434); RBC 3.74 M/mm3 (4.00-5.60); WHITE BLOOD COUNT 8.2 K/mm3 (4.0-10.0)
[2020-12-05] MEDS: INSULIN (LEVEMIR) 100 UNITS/ML UNITS SQ SCH (07:37)
[2020-12-05 08:50] LABS: ALBUMIN 2.2 g/dl (3.4-5.0); BILIRUBIN,TOTAL 0.5 mg/dL (0.2-1); CALCIUM 8.3 mg/dL (8.5-10.1); CREATININE 4.4 mg/dL (0.55-1.3); MAGNESIUM 2.5 mg/dL (1.8-2.4); PHOSPHOROUS 7.7 mg/dL (2.5-4.9); POTASSIUM 5.9 mmol/L (3.5-5.1); TOT PROT 5.5 g/dl (6.4-8.2)
[2020-12-05 08:54] LABS: BLOOD UREA NITROGEN 136.2 mg/dL (7-18)
[2020-12-05] MEDS: metoPROLOL SUCCINATE 25 MG TAB.SR.24H (FP) PO SCH (09:54)
[2020-12-05] MEDS ORDERED: DEXTROSE 5%-WATER - 50 ML IVPB ONE (09:58)
[2020-12-05] MEDS ORDERED: cefTRIAXone SODIUM 1 GM VIAL ONE (09:58)
[2020-12-05] MEDS: PROPOFOL 1,000,000 MCG/100 ML VIAL IVPB SCH (10:41)
[2020-12-05] MEDS: DEXAMETHASONE SOD PHOSPHATE 4 MG/1 ML VIAL IVPUSH SCH (10:42)
[2020-12-05] MEDS: MUPIROCIN 2% TOPICAL OINTMENT FOR DECOLONIZATION NS SCH (10:42)
[2020-12-05] MEDS: PANTOPRAZOLE 40 MG TABLET PO SCH (10:44)
[2020-12-05] MEDS: SODIUM ZIRCONIUM CYCLOSILICATE (LOKELMA) 5 GM PACKET PO SCH (10:44)
[2020-12-05] MEDS: NICOTINE 21 MG/24 HOURS TOPICAL PATCH TD SCH (10:44)
[2020-12-05] MEDS: ZINC SULFATE 220 MG CAPSULE (FP) PO SCH (10:45)
[2020-12-05] MEDS: ASCORBIC ACID 500 MG TABLET (FP) PO SCH ×2 (10:45→22:57)
[2020-12-05] MEDS: ALLOPURINOL 300 MG TABLET (FP) PO SCH (10:45)
[2020-12-05] MEDS: CEFTRIAXONE 1 GM in DEXTROSE 5%-WATER - 50 ML IVPB SCH (10:45)
[2020-12-05] MEDS: CHOLECALCIFEROL (VIT D3) 1,000 UNIT (25 MCG) TABLET PO SCH (10:45)
[2020-12-05] MEDS ORDERED: INSULIN REGULAR HUMAN 100 UNITS/ML *VIAL IVPUSH ONE (11:15)
[2020-12-05] MEDS ORDERED: DEXTROSE 50%-WATER - 25 GM/50 ML VIAL IVPUSH ONE (11:16)
[2020-12-05] MEDS ORDERED: SODIUM BICARBONATE 8.4% 50 MEQ/50 ML DISP.SYRIN IVPUSH ONE (11:16)
[2020-12-05] MEDS ORDERED: DEXTROSE 50%-WATER 25 GM/50 ML DISP.SYRIN ONE (12:09)
[2020-12-05] MEDS ORDERED: SODIUM BICARBONATE 8.4% - 50 ML ONE (12:09)
[2020-12-05] MEDS ORDERED: SODIUM BICARBONATE 8.4% 50 MEQ/50 ML VIAL ONE (12:10)
[2020-12-05] MEDS ORDERED: SODIUM BICARBONATE 8.4% - 150 MEQ in DEXTROSE 5%-WATER - 1,000 ML IV SCH (12:45)
[2020-12-05 13:01] LABS: ARTERIAL BLD GAS O2 SATURATION 86.6 mmHg (95-98); ARTERIAL BLOOD GAS BASE EXCESS -11.5 mmol/L (-2-2)
[2020-12-05 13:02] LABS: ALLENS TEST POSITIVE; VENT MODE AC; VENT RATE 26
[2020-12-05 13:05] LABS: ARTERIAL BLOOD GAS pH 7.107 (7.350-7.450)
[2020-12-05 14:52] LABS: CALCIUM 7.4 mg/dL (8.5-10.1); CREATININE 4.4 mg/dL (0.55-1.3); POTASSIUM 5.3 mmol/L (3.5-5.1)
[2020-12-05 15:15] LABS: BLOOD UREA NITROGEN 144.6 mg/dL (7-18)
[2020-12-05] MEDS ORDERED: SODIUM ZIRCONIUM CYCLOSILICATE (LOKELMA) 5 GM PACKET PO SCH (16:00)
[2020-12-05] MEDS: HEPARIN INFUSION - 25,000 UNITS/500 ML INFUS.BAG IVPB SCH (22:56)
[2020-12-05] MEDS: CHLORHEXIDINE GLUCONATE 4% CLEANSER FOR DECOLONIZATION TP SCH (22:56)
[2020-12-05] MEDS: ATORVASTATIN CA 10 MG TABLET (FP) PO SCH (22:57)
[2020-12-06] MEDS ORDERED: MORPHINE SULFATE 2 MG/ML VIAL ONE (03:44)
[2020-12-06] MEDS ORDERED: MORPHINE SULFATE 2 MG/ML VIAL IVPUSH ONE (03:49)
[2020-12-06] MEDS: PROPOFOL 1,000,000 MCG/100 ML VIAL IVPB SCH (05:50)
[2020-12-06 06:20] LABS: ARTERIAL BLD GAS O2 SATURATION 91.9 mmHg (95-98); ARTERIAL BLOOD GAS BASE EXCESS -4.4 mmol/L (-2-2); ARTERIAL BLOOD GAS PO2 66.9 mmHg (80-100); ARTERIAL BLOOD GAS pH 7.322 (7.350-7.450)
[2020-12-06 06:23] LABS: ALLENS TEST POSITIVE
[2020-12-06 06:24] LABS: VENT MODE A/C; VENT RATE 30
[2020-12-06] MEDS: INSULIN SLIDING SCALE (NOVOLOG) 1 VIAL SQ SCH ×3 (07:03→16:36)
[2020-12-06] MEDS: INSULIN (LEVEMIR) 100 UNITS/ML UNITS SQ SCH (07:04)
[2020-12-06 07:08] LABS: BASO % 0.1 % (0-2.0); HEMOGLOBIN 11.7 GM/dL (11.7-16.9); MCH 32.6 pg (25.7-33.7); MCHC 33.5 g/dl (32.0-35.9); MEAN CELL VOLUME 97.3 fl (80-96); MEAN PLT VOLUME 10.1 fl (7.5-11.1); MONO % 3.4 % (3.8-10.2); NEUT % 91.5 % (42.8-82.8); PLATELET COUNT 208 K/MM3 (134-434); RDW 14.5 % (11.9-15.9); WHITE BLOOD COUNT 5.6 K/mm3 (4.0-10.0)
[2020-12-06 07:31] LABS: POTASSIUM 4.4 mmol/L (3.5-5.1)
[2020-12-06 07:38] LABS: CALCIUM 7.8 mg/dL (8.5-10.1)
[2020-12-06 07:39] LABS: MAGNESIUM 2.5 mg/dL (1.8-2.4)
[2020-12-06 07:41] LABS: CREATININE 4.1 mg/dL (0.55-1.3); PHOSPHOROUS 5.5 mg/dL (2.5-4.9)
[2020-12-06 07:42] LABS: BILIRUBIN,TOTAL 0.3 mg/dL (0.2-1); TOT PROT 5.2 g/dl (6.4-8.2)
[2020-12-06 08:18] LABS: BLOOD UREA NITROGEN 155.8 mg/dL (7-18)
[2020-12-06] MEDS ORDERED: cefTRIAXone SODIUM 1 GM VIAL ONE (09:07)
[2020-12-06] MEDS ORDERED: DEXTROSE 5%-WATER - 50 ML IVPB ONE (09:07)
[2020-12-06] MEDS ORDERED: PT OWN MED DRAWER 7, Y5N ONE (09:10)
[2020-12-06] MEDS: SODIUM ZIRCONIUM CYCLOSILICATE (LOKELMA) 5 GM PACKET PO SCH (10:23)
[2020-12-06] MEDS: CEFTRIAXONE 1 GM in DEXTROSE 5%-WATER - 50 ML IVPB SCH (10:23)
[2020-12-06] MEDS: NICOTINE 21 MG/24 HOURS TOPICAL PATCH TD SCH (10:24)
[2020-12-06] MEDS: DEXAMETHASONE SOD PHOSPHATE 4 MG/1 ML VIAL IVPUSH SCH (10:24)
[2020-12-06] MEDS: metoPROLOL SUCCINATE 25 MG TAB.SR.24H (FP) PO SCH (10:25)
[2020-12-06] MEDS: CHOLECALCIFEROL (VIT D3) 1,000 UNIT (25 MCG) TABLET PO SCH (10:25)
[2020-12-06] MEDS: PANTOPRAZOLE 40 MG TABLET PO SCH (10:25)
[2020-12-06] MEDS: ZINC SULFATE 220 MG CAPSULE (FP) PO SCH (10:25)
[2020-12-06] MEDS: ASCORBIC ACID 500 MG TABLET (FP) PO SCH (10:26)
[2020-12-06] MEDS: ALLOPURINOL 300 MG TABLET (FP) PO SCH (10:26)
[2020-12-06 11:58] LABS: ANISOCYTOSIS 0; MACROCYTOSIS 1+; PLATELET ESTIMATE NORMAL
[2020-12-07] MEDS: CHLORHEXIDINE GLUCONATE 4% CLEANSER FOR DECOLONIZATION TP SCH ×2 (00:39→23:04)
[2020-12-07] MEDS: SODIUM CHLORIDE 0.45% 1,000 ML IV SCH (00:40)
[2020-12-07] MEDS: ATORVASTATIN CA 10 MG TABLET (FP) PO SCH ×2 (00:40→23:04)
[2020-12-07] MEDS: HEPARIN INFUSION - 25,000 UNITS/500 ML INFUS.BAG IVPB SCH ×3 (00:40→23:04)
[2020-12-07] MEDS: INSULIN SLIDING SCALE (NOVOLOG) 1 VIAL SQ SCH ×5 (00:41→23:22)
[2020-12-07] MEDS: ASCORBIC ACID 500 MG TABLET (FP) PO SCH ×3 (00:43→23:04)
[2020-12-07] MEDS: PROPOFOL 1,000,000 MCG/100 ML VIAL IVPB SCH ×3 (00:43→20:45)
[2020-12-07] MEDS: INSULIN (LEVEMIR) 100 UNITS/ML UNITS SQ SCH (06:43)
[2020-12-07 06:55] LABS: HEMATOCRIT 33.7 % (35.4-49); HEMOGLOBIN 11.4 GM/dL (11.7-16.9); MCH 32.9 pg (25.7-33.7); MCHC 33.8 g/dl (32.0-35.9); MEAN CELL VOLUME 97.3 fl (80-96); MEAN PLT VOLUME 10.3 fl (7.5-11.1); PLATELET COUNT 133 K/MM3 (134-434); RBC 3.46 M/mm3 (4.00-5.60); RDW 14.4 % (11.9-15.9); WHITE BLOOD COUNT 3.3 K/mm3 (4.0-10.0)
[2020-12-07 09:40] LABS: BILIRUBIN,TOTAL 0.3 mg/dL (0.2-1); CALCIUM 8.4 mg/dL (8.5-10.1); CREATININE 3.4 mg/dL (0.55-1.3); MAGNESIUM 2.6 mg/dL (1.8-2.4); POTASSIUM 4.2 mmol/L (3.5-5.1); TOT PROT 4.7 g/dl (6.4-8.2)
[2020-12-07] MEDS: CHOLECALCIFEROL (VIT D3) 1,000 UNIT (25 MCG) TABLET PO SCH (09:57)
[2020-12-07] MEDS: DEXAMETHASONE SOD PHOSPHATE 4 MG/1 ML VIAL IVPUSH SCH (09:57)
[2020-12-07] MEDS: ZINC SULFATE 220 MG CAPSULE (FP) PO SCH (09:57)
[2020-12-07] MEDS: SODIUM ZIRCONIUM CYCLOSILICATE (LOKELMA) 5 GM PACKET PO SCH (09:57)
[2020-12-07] MEDS: NICOTINE 21 MG/24 HOURS TOPICAL PATCH TD SCH (09:57)
[2020-12-07] MEDS: metoPROLOL SUCCINATE 25 MG TAB.SR.24H (FP) PO SCH (09:58)
[2020-12-07] MEDS: PANTOPRAZOLE 40 MG TABLET PO SCH (09:58)
[2020-12-07 09:59] LABS: BLOOD UREA NITROGEN 151.2 mg/dL (7-18)
[2020-12-08] MEDS: PROPOFOL 1,000,000 MCG/100 ML VIAL IVPB SCH ×3 (01:30→07:03)
[2020-12-08] MEDS: SODIUM CHLORIDE 0.45% 1,000 ML IV SCH ×2 (03:58→20:31)
[2020-12-08 05:23] LABS: ARTERIAL BLD GAS O2 SATURATION 78.8 mmHg (95-98); ARTERIAL BLOOD GAS BASE EXCESS -7.9 mmol/L (-2-2); ARTERIAL BLOOD GAS PO2 50.6 mmHg (80-100)
[2020-12-08 05:42] LABS: ALLENS TEST POSITIVE
[2020-12-08 05:43] LABS: VENT MODE A/C; VENT RATE 20
[2020-12-08] MEDS: INSULIN (LEVEMIR) 100 UNITS/ML UNITS SQ SCH (06:36)
[2020-12-08] MEDS: INSULIN SLIDING SCALE (NOVOLOG) 1 VIAL SQ SCH ×4 (06:37→21:39)
[2020-12-08 07:13] LABS: HEMATOCRIT 35.3 % (35.4-49); HEMOGLOBIN 11.8 GM/dL (11.7-16.9); MCH 32.4 pg (25.7-33.7); MCHC 33.5 g/dl (32.0-35.9); MEAN CELL VOLUME 96.6 fl (80-96); MEAN PLT VOLUME 10.1 fl (7.5-11.1); PLATELET COUNT 115 K/MM3 (134-434); RBC 3.65 M/mm3 (4.00-5.60); RDW 14.5 % (11.9-15.9); WHITE BLOOD COUNT 4.6 K/mm3 (4.0-10.0)
[2020-12-08 08:54] LABS: ALBUMIN 2.2 g/dl (3.4-5.0); BILIRUBIN,TOTAL 0.3 mg/dL (0.2-1); CALCIUM 8.6 mg/dL (8.5-10.1); CREATININE 2.8 mg/dL (0.55-1.3); MAGNESIUM 2.6 mg/dL (1.8-2.4); POTASSIUM 4.2 mmol/L (3.5-5.1); TOT PROT 4.9 g/dl (6.4-8.2)
[2020-12-08 08:56] LABS: BLOOD UREA NITROGEN 146.6 mg/dL (7-18)
[2020-12-08] MEDS: metoPROLOL SUCCINATE 25 MG TAB.SR.24H (FP) PO SCH (09:08)
[2020-12-08] MEDS ORDERED: FAMOTIDINE 20 MG/50 ML IVPB 20 MG/50 ML MG IVPB SCH (10:00)
[2020-12-08] MEDS: SODIUM ZIRCONIUM CYCLOSILICATE (LOKELMA) 5 GM PACKET PO SCH (11:43)
[2020-12-08] MEDS: DEXAMETHASONE SOD PHOSPHATE 4 MG/1 ML VIAL IVPUSH SCH (11:43)
[2020-12-08] MEDS: ZINC SULFATE 220 MG CAPSULE (FP) PO SCH (11:43)
[2020-12-08] MEDS: CHOLECALCIFEROL (VIT D3) 1,000 UNIT (25 MCG) TABLET PO SCH (11:43)
[2020-12-08] MEDS: ASCORBIC ACID 500 MG TABLET (FP) PO SCH ×2 (11:43→21:33)
[2020-12-08] MEDS: NICOTINE 21 MG/24 HOURS TOPICAL PATCH TD SCH (11:43)
[2020-12-08] MEDS: ENOXAPARIN NA (PORCINE) 30 MG/0.3 ML DISP.SYRIN SQ SCH (15:00)
[2020-12-08] MEDS ORDERED: METOPROLOL TARTRATE 5 MG/5 ML VIAL IVPUSH PRN (17:29)
[2020-12-08] MEDS ORDERED: METOPROLOL TARTRATE 5 MG/5 ML VIAL IVPUSH SCH (17:30)
[2020-12-08] MEDS: CHLORHEXIDINE GLUCONATE 4% CLEANSER FOR DECOLONIZATION TP SCH (21:32)
[2020-12-08] MEDS: ATORVASTATIN CA 10 MG TABLET (FP) PO SCH (21:33)
[2020-12-09] MEDS: INSULIN (LEVEMIR) 100 UNITS/ML UNITS SQ SCH (06:03)
[2020-12-09] MEDS: INSULIN SLIDING SCALE (NOVOLOG) 1 VIAL SQ SCH ×4 (06:04→22:56)
[2020-12-09 07:16] LABS: HEMATOCRIT 38.3 % (35.4-49); HEMOGLOBIN 13.1 GM/dL (11.7-16.9); MCH 32.7 pg (25.7-33.7); MCHC 34.1 g/dl (32.0-35.9); MEAN CELL VOLUME 95.9 fl (80-96); MEAN PLT VOLUME 10.5 fl (7.5-11.1); PLATELET COUNT 161 K/MM3 (134-434); RBC 3.99 M/mm3 (4.00-5.60); RDW 14.2 % (11.9-15.9); WHITE BLOOD COUNT 10.5 K/mm3 (4.0-10.0)
[2020-12-09 07:27] LABS: POTASSIUM 4.1 mmol/L (3.5-5.1)
[2020-12-09 07:40] LABS: MAGNESIUM 2.4 mg/dL (1.8-2.4)
[2020-12-09 07:43] LABS: ALBUMIN 2.3 g/dl (3.4-5.0); CALCIUM 8.6 mg/dL (8.5-10.1); CREATININE 2.3 mg/dL (0.55-1.3); PHOSPHOROUS 4.1 mg/dL (2.5-4.9)
[2020-12-09 07:44] LABS: BILIRUBIN,TOTAL 0.6 mg/dL (0.2-1); N-TERMINAL BNP 1207.9 pg/ml (5-450)
[2020-12-09 07:48] LABS: TOT PROT 5.2 g/dl (6.4-8.2)
[2020-12-09 08:10] LABS: BLOOD UREA NITROGEN 127.9 mg/dL (7-18)
[2020-12-09] MEDS ORDERED: DEXTROSE 5%-WATER - 1,000 ML IV SCH (08:30)
[2020-12-09] MEDS: ENOXAPARIN NA (PORCINE) 30 MG/0.3 ML DISP.SYRIN SQ SCH (10:09)
[2020-12-09] MEDS: NICOTINE 21 MG/24 HOURS TOPICAL PATCH TD SCH (10:10)
[2020-12-09] MEDS: metoPROLOL SUCCINATE 25 MG TAB.SR.24H (FP) PO SCH (10:32)
[2020-12-09] MEDS: ZINC SULFATE 220 MG CAPSULE (FP) PO SCH (10:33)
[2020-12-09] MEDS: CHOLECALCIFEROL (VIT D3) 1,000 UNIT (25 MCG) TABLET PO SCH (10:33)
[2020-12-09] MEDS: SODIUM ZIRCONIUM CYCLOSILICATE (LOKELMA) 5 GM PACKET PO SCH (10:33)
[2020-12-09] MEDS: ASCORBIC ACID 500 MG TABLET (FP) PO SCH ×2 (10:33→22:55)
[2020-12-09] MEDS: METOPROLOL TARTRATE 25 MG TABLET (FP) PO SCH ×2 (14:36→22:55)
[2020-12-09] MEDS: DEXTROSE 5%-WATER - 1,000 ML IV SCH (22:47)
[2020-12-09] MEDS: ATORVASTATIN CA 10 MG TABLET (FP) PO SCH (22:55)
[2020-12-09] MEDS: CHLORHEXIDINE GLUCONATE 4% CLEANSER FOR DECOLONIZATION TP SCH (22:55)
[2020-12-10] MEDS: DEXTROSE 5%-WATER - 1,000 ML IV SCH (04:45)
[2020-12-10] MEDS: INSULIN SLIDING SCALE (NOVOLOG) 1 VIAL SQ SCH ×4 (06:20→22:31)
[2020-12-10] MEDS: INSULIN (LEVEMIR) 100 UNITS/ML UNITS SQ SCH (06:20)
[2020-12-10 07:05] LABS: HEMATOCRIT 38.5 % (35.4-49); HEMOGLOBIN 12.9 GM/dL (11.7-16.9); MCH 32.3 pg (25.7-33.7); MCHC 33.6 g/dl (32.0-35.9); MEAN PLT VOLUME 11.2 fl (7.5-11.1); PLATELET COUNT 140 K/MM3 (134-434); RBC 4.01 M/mm3 (4.00-5.60); RDW 14.2 % (11.9-15.9); WHITE BLOOD COUNT 12.4 K/mm3 (4.0-10.0)
[2020-12-10 07:25] LABS: POTASSIUM 4.3 mmol/L (3.5-5.1)
[2020-12-10 07:30] LABS: ALBUMIN 2.1 g/dl (3.4-5.0)
[2020-12-10 07:31] LABS: MAGNESIUM 2.4 mg/dL (1.8-2.4)
[2020-12-10 07:34] LABS: CREATININE 2.1 mg/dL (0.55-1.3); PHOSPHOROUS 3.7 mg/dL (2.5-4.9)
[2020-12-10 07:35] LABS: BILIRUBIN,TOTAL 0.6 mg/dL (0.2-1); TOT PROT 5.1 g/dl (6.4-8.2)
[2020-12-10 08:05] LABS: BLOOD UREA NITROGEN 122.8 mg/dL (7-18)
[2020-12-10] MEDS: CHOLECALCIFEROL (VIT D3) 1,000 UNIT (25 MCG) TABLET PO SCH (10:54)
[2020-12-10] MEDS: ZINC SULFATE 220 MG CAPSULE (FP) PO SCH (10:54)
[2020-12-10] MEDS: ASCORBIC ACID 500 MG TABLET (FP) PO SCH (10:54)
[2020-12-10] MEDS: ENOXAPARIN NA (PORCINE) 30 MG/0.3 ML DISP.SYRIN SQ SCH (10:55)
[2020-12-10] MEDS: METOPROLOL TARTRATE 25 MG TABLET (FP) PO SCH ×2 (10:55→22:17)
[2020-12-10] MEDS: NICOTINE 21 MG/24 HOURS TOPICAL PATCH TD SCH (10:56)
[2020-12-10] MEDS ORDERED: DEXAMETHASONE SOD PHOSPHATE 10 MG/1 ML VIAL IVPUSH ONE (13:19)
[2020-12-10 14:06] LABS: ARTERIAL BLD GAS O2 SATURATION 90.5 mmHg (95-98); ARTERIAL BLOOD GAS BASE EXCESS 1.5 mmol/L (-2-2); ARTERIAL BLOOD GAS pH 7.463 (7.350-7.450)
[2020-12-10 14:07] LABS: ALLENS TEST POSITIVE
[2020-12-10 14:09] LABS: VENT MODE HFNC+NRM
[2020-12-10] MEDS ORDERED: PT OWN MED DRAWER 7, Y5N ONE (14:47)
[2020-12-10] MEDS ORDERED: FUROSEMIDE 40 MG/4 ML INJECTABLE VIAL IVPUSH ONE (15:00)
[2020-12-10] MEDS: AMINO ACIDS 4.25%/D5W 1,000 ML IV SCH (15:26)
[2020-12-10] MEDS: MULTIVIT INJ. ADULT COMBO WITH VIT K 1 COMBO 10 ML VIAL IV SCH (15:28)
[2020-12-10 15:37] VITALS: BMI 28.9
[2020-12-10] MEDS ORDERED: HEPARIN SOD,PORK IN 0.45% NACL 25,000 UNITS/500 ML INFUS.BAG IVPB SCH (16:30)
[2020-12-10] MEDS ORDERED: HEPARIN NA (PORCINE) 5,000 UNITS/ML 1ML VIAL IVPUSH PRN ×4 (16:30→16:56)
[2020-12-10] MEDS ORDERED: HEPARIN INFUSION - 25,000 UNITS/500 ML INFUS.BAG IVPB SCH (17:00)
[2020-12-10] MEDS: HEPARIN INFUSION - 25,000 UNITS/500 ML INFUS.BAG IVPB SCH (18:34)
[2020-12-10] MEDS: CHLORHEXIDINE GLUCONATE 4% CLEANSER FOR DECOLONIZATION TP SCH (21:31)
[2020-12-11] MEDS: AMINO ACIDS 4.25%/D5W 1,000 ML IV SCH ×3 (02:20→14:17)
[2020-12-11] MEDS: INSULIN (LEVEMIR) 100 UNITS/ML UNITS SQ SCH (06:34)
[2020-12-11] MEDS: INSULIN SLIDING SCALE (NOVOLOG) 1 VIAL SQ SCH ×4 (06:35→22:25)
[2020-12-11 07:45] LABS: BASO % 0.2 % (0-2.0); EOS % 0.9 % (0-4.5); HEMATOCRIT 37.9 % (35.4-49); HEMOGLOBIN 12.7 GM/dL (11.7-16.9); LYMPH % 6.3 % (8-40); MCH 32.4 pg (25.7-33.7); MCHC 33.4 g/dl (32.0-35.9); MEAN PLT VOLUME 11.1 fl (7.5-11.1); MONO % 1.6 % (3.8-10.2); PLATELET COUNT 122 K/MM3 (134-434); RBC 3.91 M/mm3 (4.00-5.60); RDW 14.1 % (11.9-15.9); WHITE BLOOD COUNT 13.4 K/mm3 (4.0-10.0)
[2020-12-11 07:55] LABS: ALBUMIN 2.2 g/dl (3.4-5.0); CALCIUM 8.6 mg/dL (8.5-10.1); MAGNESIUM 2.3 mg/dL (1.8-2.4)
[2020-12-11 07:58] LABS: CREATININE 2.1 mg/dL (0.55-1.3); PHOSPHOROUS 4.1 mg/dL (2.5-4.9)
[2020-12-11 08:00] LABS: BILIRUBIN,TOTAL 0.8 mg/dL (0.2-1); TOT PROT 5.4 g/dl (6.4-8.2)
[2020-12-11] MEDS ORDERED: ENOXAPARIN NA (PORCINE) 30 MG/0.3 ML DISP.SYRIN SQ SCH (10:00)
[2020-12-11] MEDS: METOPROLOL TARTRATE 25 MG TABLET (FP) PO SCH ×3 (10:00→22:26)
[2020-12-11] MEDS: CHOLECALCIFEROL (VIT D3) 1,000 UNIT (25 MCG) TABLET PO SCH (10:59)
[2020-12-11] MEDS ORDERED: AMINO ACIDS 4.25%/D5W 1,000 ML IV SCH ×2 (11:04→12:55)
[2020-12-11] MEDS ORDERED: FUROSEMIDE 40 MG/4 ML INJECTABLE VIAL IVPUSH ONE (11:05)
[2020-12-11] MEDS: NICOTINE 21 MG/24 HOURS TOPICAL PATCH TD SCH (12:03)
[2020-12-11 12:08] LABS: ARTERIAL BLD GAS O2 SATURATION 87.4 mmHg (95-98); ARTERIAL BLOOD GAS BASE EXCESS 3.2 mmol/L (-2-2); ARTERIAL BLOOD GAS PO2 50.6 mmHg (80-100); ARTERIAL BLOOD GAS pH 7.447 (7.350-7.450)
[2020-12-11 12:12] LABS: ALLENS TEST POSITIVE
[2020-12-11] MEDS ORDERED: PT OWN MED DRAWER 7, Y5N ONE (14:15)
[2020-12-11] MEDS ORDERED: DEXAMETHASONE SOD PHOSPHATE 10 MG/1 ML VIAL IVPUSH ONE (14:16)
[2020-12-11] MEDS: MULTIVIT INJ. ADULT COMBO WITH VIT K 1 COMBO 10 ML VIAL IV SCH (14:18)
[2020-12-11] MEDS ORDERED: DEXAMETHASONE SOD PHOSPHATE 10 MG/1 ML VIAL ONE (14:34)
[2020-12-11] MEDS ORDERED: MIDAZOLAM HCL 2 MG/2 ML SINGLE DOSE VIAL IVPUSH ONE (15:18)
[2020-12-11] MEDS ORDERED: PROPOFOL 200 MG/20 ML VIAL IVPUSH ONE (15:19)
[2020-12-11] MEDS ORDERED: PHENYLEPHRINE HCL 10 MG/1 ML SINGLE DOSE VIAL ONE (15:26)
[2020-12-11 15:29] LABS: ANISOCYTOSIS 0; MACROCYTOSIS 1+; PLATELET ESTIMATE DECREASED
[2020-12-11] MEDS ORDERED: PHENYLEPHRINE NS PREMIX 25,000 MCG/250 ML BAG CVP SCH (15:30)
[2020-12-11] MEDS ORDERED: NOREPINEPHRINE D5W PREMIX 16,000 MCG/500 ML BAG IVPB ONE (15:51)
[2020-12-11] MEDS ORDERED: AMIODARONE IN DEXTROSE,ISO-OSM 360 MG/200 ML BAG ONE (16:06)
[2020-12-11] MEDS: NOREPINEPHRINE BITARTRATE 4,000 MCG in DEXTROSE 5%-WATER - 496 ML IV SCH (16:22)
[2020-12-11 18:09] LABS: ARTERIAL BLD GAS O2 SATURATION 79.5 mmHg (95-98); ARTERIAL BLOOD GAS BASE EXCESS -13.2 mmol/L (-2-2); ARTERIAL BLOOD GAS PO2 67.6 mmHg (80-100)
[2020-12-11 18:11] LABS: ALLENS TEST POSITIVE
[2020-12-11 18:12] LABS: VENT MODE A/C; VENT RATE 26
[2020-12-11 18:14] LABS: ARTERIAL BLOOD GAS pH 6.967 (7.350-7.450)
[2020-12-11] MEDS: HEPARIN INFUSION - 25,000 UNITS/500 ML INFUS.BAG IVPB SCH (18:21)
[2020-12-11] MEDS ORDERED: ROCURONIUM BROMIDE 50 MG/5 ML VIAL IV ONE (18:50)
[2020-12-11] MEDS: PROPOFOL 1,000,000 MCG/100 ML VIAL IVPB SCH (21:01)
[2020-12-11] MEDS: CHLORHEXIDINE GLUCONATE 4% CLEANSER FOR DECOLONIZATION TP SCH (22:02)
[2020-12-12 06:00] LABS: ARTERIAL BLD GAS O2 SATURATION 89.7 mmHg (95-98); ARTERIAL BLOOD GAS BASE EXCESS -4.6 mmol/L (-2-2); ARTERIAL BLOOD GAS pH 7.268 (7.350-7.450)
[2020-12-12] MEDS: AMINO ACIDS 4.25%/D5W 1,000 ML IV SCH ×2 (06:02→19:00)
[2020-12-12 06:08] LABS: ALLENS TEST POSITIVE; VENT MODE A/C; VENT RATE 35
[2020-12-12] MEDS: INSULIN SLIDING SCALE (NOVOLOG) 1 VIAL SQ SCH ×4 (06:38→21:19)
[2020-12-12] MEDS: INSULIN (LEVEMIR) 100 UNITS/ML UNITS SQ SCH (06:39)
[2020-12-12 07:13] LABS: HEMATOCRIT 38.6 % (35.4-49); HEMOGLOBIN 12.6 GM/dL (11.7-16.9); MCH 32.1 pg (25.7-33.7); MCHC 32.7 g/dl (32.0-35.9); MEAN CELL VOLUME 98.3 fl (80-96); MEAN PLT VOLUME 11.7 fl (7.5-11.1); PLATELET COUNT 188 K/MM3 (134-434); RBC 3.93 M/mm3 (4.00-5.60); RDW 14.3 % (11.9-15.9); WHITE BLOOD COUNT 28.4 K/mm3 (4.0-10.0)
[2020-12-12 07:38] LABS: POTASSIUM 5.5 mmol/L (3.5-5.1)
[2020-12-12 07:44] LABS: ALBUMIN 2.4 g/dl (3.4-5.0); CALCIUM 7.9 mg/dL (8.5-10.1); MAGNESIUM 2.3 mg/dL (1.8-2.4)
[2020-12-12 07:47] LABS: CREATININE 3.2 mg/dL (0.55-1.3); PHOSPHOROUS 8.3 mg/dL (2.5-4.9)
[2020-12-12 07:48] LABS: BILIRUBIN,TOTAL 0.6 mg/dL (0.2-1); TOT PROT 5.8 g/dl (6.4-8.2)
[2020-12-12 08:00] LABS: BLOOD UREA NITROGEN 134.9 mg/dL (7-18)
[2020-12-12] MEDS: CHOLECALCIFEROL (VIT D3) 1,000 UNIT (25 MCG) TABLET PO SCH (09:30)
[2020-12-12 10:15] LABS: INR 1.57 (0.83-1.09); PROTHROMBIN TIME (PATIENT) 19.1 SEC (9.7-13.0)
[2020-12-12] MEDS: PHENYLEPHRINE NS PREMIX 50,000 MCG/500 ML BAG CVP SCH (10:27)
[2020-12-12] MEDS: NICOTINE 21 MG/24 HOURS TOPICAL PATCH TD SCH (10:59)
[2020-12-12] MEDS ORDERED: VANCOMYCIN 1,000 MG in DEXTROSE 5%-WATER - 250 ML IVPB ONE (11:30)
[2020-12-12] MEDS ORDERED: DEXTROSE 5%-WATER - 50 ML IVPB ONE ×3 (11:34→21:01)
[2020-12-12] MEDS ORDERED: PIPERACILLIN/TAZOBACTAM 2.25 GM VIAL IVPB ONE ×3 (11:34→21:00)
[2020-12-12] MEDS: PIPERACILLIN/TAZOB 2.25 GM 2.25 GM in DEXTROSE 5%-WATER - 50 ML IVPB SCH ×3 (11:36→21:08)
[2020-12-12] MEDS ORDERED: VANCOMYCIN 1 GRAM (PRE-DOCKED) 1,000 MG/250 ML BAG IVPB ONE (11:57)
[2020-12-12] MEDS ORDERED: NOREPINEPHRINE D5W PREMIX 16,000 MCG/500 ML BAG IVPB ONE (12:40)
[2020-12-12] MEDS ORDERED: DEXTROSE 50%-WATER - 25 GM/50 ML VIAL IVPUSH ONE (16:17)
[2020-12-12] MEDS ORDERED: SODIUM BICARBONATE 8.4% 50 MEQ/50 ML DISP.SYRIN IVPUSH ONE (16:18)
[2020-12-12] MEDS ORDERED: INSULIN REGULAR HUMAN 100 UNITS/ML *VIAL IVPUSH ONE (16:18)
[2020-12-12] MEDS: PROPOFOL 1,000,000 MCG/100 ML VIAL IVPB SCH (16:20)
[2020-12-12] MEDS: NOREPINEPHRINE BITARTRATE 4,000 MCG in DEXTROSE 5%-WATER - 496 ML IV SCH (16:20)
[2020-12-12] MEDS ORDERED: DEXTROSE 50%-WATER 25 GM/50 ML DISP.SYRIN ONE (16:31)
[2020-12-12] MEDS ORDERED: SODIUM BICARBONATE 8.4% 50 MEQ/50 ML VIAL ONE (16:31)
[2020-12-12] MEDS: SODIUM ZIRCONIUM CYCLOSILICATE (LOKELMA) 5 GM PACKET PO SCH ×2 (16:38→21:10)
[2020-12-12] MEDS ORDERED: HEPARIN INFUSION - 25,000 UNITS/500 ML INFUS.BAG IVPB SCH (17:43)
[2020-12-12] MEDS: MULTIVIT INJ. ADULT COMBO WITH VIT K 1 COMBO 10 ML VIAL IV SCH (18:02)
[2020-12-12 18:50] LABS: HEMATOCRIT 33.8 % (35.4-49); HEMOGLOBIN 10.7 GM/dL (11.7-16.9); MCH 31.2 pg (25.7-33.7); MCHC 31.5 g/dl (32.0-35.9); MEAN PLT VOLUME 10.8 fl (7.5-11.1); PLATELET COUNT 162 K/MM3 (134-434); RBC 3.41 M/mm3 (4.00-5.60); RDW 14.2 % (11.9-15.9); WHITE BLOOD COUNT 21.1 K/mm3 (4.0-10.0)
[2020-12-12] MEDS: HEPARIN NA (PORCINE) 5,000 UNITS/ML 1ML VIAL SQ SCH (21:09)
[2020-12-12] MEDS: CHLORHEXIDINE GLUCONATE 4% CLEANSER FOR DECOLONIZATION TP SCH (21:09)
[2020-12-13] MEDS ORDERED: PIPERACILLIN/TAZOBACTAM 2.25 GM VIAL IVPB ONE ×3 (02:17→22:19)
[2020-12-13] MEDS ORDERED: DEXTROSE 5%-WATER - 50 ML IVPB ONE ×3 (02:17→22:19)
[2020-12-13] MEDS: PIPERACILLIN/TAZOB 2.25 GM 2.25 GM in DEXTROSE 5%-WATER - 50 ML IVPB SCH ×4 (02:39→22:23)
[2020-12-13] MEDS: HEPARIN NA (PORCINE) 5,000 UNITS/ML 1ML VIAL SQ SCH ×3 (06:23→22:24)
[2020-12-13] MEDS: INSULIN (LEVEMIR) 100 UNITS/ML UNITS SQ SCH (06:23)
[2020-12-13] MEDS: INSULIN SLIDING SCALE (NOVOLOG) 1 VIAL SQ SCH ×4 (06:24→22:24)
[2020-12-13 07:29] LABS: HEMATOCRIT 32.7 % (35.4-49); HEMOGLOBIN 10.7 GM/dL (11.7-16.9); MCH 31.7 pg (25.7-33.7); MCHC 32.6 g/dl (32.0-35.9); MEAN CELL VOLUME 97.3 fl (80-96); MEAN PLT VOLUME 11.6 fl (7.5-11.1); PLATELET COUNT 203 K/MM3 (134-434); RBC 3.36 M/mm3 (4.00-5.60); RDW 14.3 % (11.9-15.9); WHITE BLOOD COUNT 22.2 K/mm3 (4.0-10.0)
[2020-12-13 07:49] LABS: POTASSIUM 4.7 mmol/L (3.5-5.1)
[2020-12-13 07:53] LABS: CALCIUM 7.6 mg/dL (8.5-10.1)
[2020-12-13 07:54] LABS: ALBUMIN 2.1 g/dl (3.4-5.0); MAGNESIUM 2.3 mg/dL (1.8-2.4)
[2020-12-13 07:57] LABS: CREATININE 3.9 mg/dL (0.55-1.3)
[2020-12-13 07:58] LABS: TOT PROT 4.8 g/dl (6.4-8.2)
[2020-12-13 08:26] LABS: BLOOD UREA NITROGEN 163.6 mg/dL (7-18)
[2020-12-13] MEDS: PHENYLEPHRINE NS PREMIX 50,000 MCG/500 ML BAG CVP SCH (10:12)
[2020-12-13] MEDS: CHOLECALCIFEROL (VIT D3) 1,000 UNIT (25 MCG) TABLET PO SCH (10:32)
[2020-12-13] MEDS: AMINO ACIDS 4.25%/D5W 1,000 ML IV SCH (10:32)
[2020-12-13] MEDS: NICOTINE 21 MG/24 HOURS TOPICAL PATCH TD SCH (10:32)
[2020-12-13] MEDS ORDERED: ACETAMINOPHEN 1000 MG/100 ML VIAL (NON FORMULARY) IVPB PRN (11:26)
[2020-12-13] MEDS: MULTIVIT INJ. ADULT COMBO WITH VIT K 1 COMBO 10 ML VIAL IV SCH (12:59)
[2020-12-13] MEDS: PROPOFOL 1,000,000 MCG/100 ML VIAL IVPB SCH (15:39)
[2020-12-13] MEDS: NOREPINEPHRINE BITARTRATE 4,000 MCG in DEXTROSE 5%-WATER - 496 ML IV SCH (16:53)
[2020-12-13] MEDS: ATORVASTATIN CA 10 MG TABLET (FP) PO SCH (22:28)
[2020-12-13] MEDS: CHLORHEXIDINE GLUCONATE 4% CLEANSER FOR DECOLONIZATION TP SCH (22:28)
[2020-12-14] MEDS ORDERED: PIPERACILLIN/TAZOBACTAM 2.25 GM VIAL IVPB ONE ×3 (03:13→14:38)
[2020-12-14] MEDS ORDERED: DEXTROSE 5%-WATER - 50 ML IVPB ONE ×3 (03:13→14:38)
[2020-12-14] MEDS: PIPERACILLIN/TAZOB 2.25 GM 2.25 GM in DEXTROSE 5%-WATER - 50 ML IVPB SCH ×4 (03:19→22:00)
[2020-12-14] MEDS: INSULIN (LEVEMIR) 100 UNITS/ML UNITS SQ SCH (06:39)
[2020-12-14] MEDS: HEPARIN NA (PORCINE) 5,000 UNITS/ML 1ML VIAL SQ SCH ×2 (06:39→13:35)
[2020-12-14] MEDS: INSULIN SLIDING SCALE (NOVOLOG) 1 VIAL SQ SCH ×3 (06:40→17:25)
[2020-12-14 07:07] LABS: HEMATOCRIT 31.2 % (35.4-49); HEMOGLOBIN 10.3 GM/dL (11.7-16.9); MCH 32.4 pg (25.7-33.7); MCHC 33.1 g/dl (32.0-35.9); MEAN CELL VOLUME 97.9 fl (80-96); MEAN PLT VOLUME 11.4 fl (7.5-11.1); PLATELET COUNT 225 K/MM3 (134-434); RBC 3.18 M/mm3 (4.00-5.60); RDW 14.5 % (11.9-15.9); WHITE BLOOD COUNT 24.7 K/mm3 (4.0-10.0)
[2020-12-14 07:20] LABS: CHLORIDE 101 mmol/L (98-107); POTASSIUM 4.9 mmol/L (3.5-5.1); SODIUM 138 mmol/L (136-145)
[2020-12-14 07:22] LABS: ALBUMIN 2.1 g/dl (3.4-5.0); ANION GAP 13 MMOL/L (8-16); CO2 24 mmol/L (21-32); MAGNESIUM 2.4 mg/dL (1.8-2.4)
[2020-12-14 07:23] LABS: GLUCOSE,RANDOM 192 mg/dL (74-106)
[2020-12-14 07:25] LABS: SGOT/AST 74 U/L (15-37); SGPT/ALT 187 U/L (13-61)
[2020-12-14 07:26] LABS: CREATININE 4.7 mg/dL (0.55-1.3); PHOSPHOROUS 7.5 mg/dL (2.5-4.9)
[2020-12-14 07:27] LABS: BILIRUBIN,TOTAL 0.6 mg/dL (0.2-1)
[2020-12-14 07:28] LABS: ALK PHOS 152 U/L (45-117)
[2020-12-14 07:40] LABS: BLOOD UREA NITROGEN > 150.0 mg/dL (7-18)
[2020-12-14] MEDS: PHENYLEPHRINE NS PREMIX 50,000 MCG/500 ML BAG CVP SCH (09:42)
[2020-12-14] MEDS: CHOLECALCIFEROL (VIT D3) 1,000 UNIT (25 MCG) TABLET PO SCH (10:03)
[2020-12-14] MEDS: NICOTINE 21 MG/24 HOURS TOPICAL PATCH TD SCH (10:04)
[2020-12-14] MEDS: MULTIVIT INJ. ADULT COMBO WITH VIT K 1 COMBO 10 ML VIAL IV SCH (13:21)
[2020-12-14] MEDS ORDERED: VANCOMYCIN 1,000 MG in DEXTROSE 5%-WATER - 250 ML IVPB ONE (18:30)
[2020-12-14] MEDS ORDERED: VANCOMYCIN 1 GRAM (PRE-DOCKED) 1,000 MG/250 ML BAG IVPB ONE (19:00)
[2020-12-15] MEDS ORDERED: PIPERACILLIN/TAZOBACTAM 2.25 GM VIAL IVPB ONE (01:10)
[2020-12-15] MEDS ORDERED: DEXTROSE 5%-WATER - 50 ML IVPB ONE (01:10)
[2020-12-15] MEDS: HEPARIN NA (PORCINE) 5,000 UNITS/ML 1ML VIAL SQ SCH ×4 (01:21→22:14)
[2020-12-15] MEDS: INSULIN SLIDING SCALE (NOVOLOG) 1 VIAL SQ SCH ×5 (01:22→22:15)
[2020-12-15] MEDS: ATORVASTATIN CA 10 MG TABLET (FP) PO SCH ×2 (01:22→22:14)
[2020-12-15] MEDS: CHLORHEXIDINE GLUCONATE 4% CLEANSER FOR DECOLONIZATION TP SCH ×2 (01:22→22:14)
[2020-12-15] MEDS: PIPERACILLIN/TAZOB 2.25 GM 2.25 GM in DEXTROSE 5%-WATER - 50 ML IVPB SCH ×3 (07:38→19:06)
[2020-12-15] MEDS: INSULIN (LEVEMIR) 100 UNITS/ML UNITS SQ SCH (07:39)
[2020-12-15 08:03] LABS: HEMATOCRIT 25.9 % (35.4-49); HEMOGLOBIN 8.7 GM/dL (11.7-16.9); MCH 32.9 pg (25.7-33.7); MCHC 33.7 g/dl (32.0-35.9); MEAN CELL VOLUME 97.7 fl (80-96); MEAN PLT VOLUME 10.9 fl (7.5-11.1); PLATELET COUNT 183 K/MM3 (134-434); RBC 2.65 M/mm3 (4.00-5.60); RDW 14.5 % (11.9-15.9); WHITE BLOOD COUNT 18.5 K/mm3 (4.0-10.0)
[2020-12-15 08:27] LABS: POTASSIUM 4.8 mmol/L (3.5-5.1)
[2020-12-15 08:32] LABS: CALCIUM 7.9 mg/dL (8.5-10.1)
[2020-12-15 08:33] LABS: ALBUMIN 1.9 g/dl (3.4-5.0); MAGNESIUM 2.6 mg/dL (1.8-2.4)
[2020-12-15 08:36] LABS: CREATININE 5.3 mg/dL (0.55-1.3); PHOSPHOROUS 7.6 mg/dL (2.5-4.9)
[2020-12-15 08:37] LABS: TOT PROT 4.6 g/dl (6.4-8.2)
[2020-12-15 09:15] LABS: BLOOD UREA NITROGEN 191.7 mg/dL (7-18)
[2020-12-15] MEDS: NICOTINE 21 MG/24 HOURS TOPICAL PATCH TD SCH (09:19)
[2020-12-15] MEDS: PHENYLEPHRINE NS PREMIX 50,000 MCG/500 ML BAG CVP SCH (09:19)
[2020-12-15] MEDS: CHOLECALCIFEROL (VIT D3) 1,000 UNIT (25 MCG) TABLET PO SCH (09:19)
[2020-12-15] MEDS: MULTIVIT INJ. ADULT COMBO WITH VIT K 1 COMBO 10 ML VIAL IV SCH (16:21)
[2020-12-15] MEDS: ACETAMINOPHEN 500 MG TABLET (FP) PO PRN (23:29)
[2020-12-16] MEDS ORDERED: DEXTROSE 5%-WATER - 50 ML IVPB ONE ×3 (01:03→17:31)
[2020-12-16] MEDS ORDERED: PIPERACILLIN/TAZOBACTAM 2.25 GM VIAL IVPB ONE ×3 (01:04→17:32)
[2020-12-16] MEDS: VASOPRESSIN 40 UNITS in SODIUM CHLORIDE 98 ML IVPB SCH (02:51)
[2020-12-16] MEDS: PIPERACILLIN/TAZOB 2.25 GM 2.25 GM in DEXTROSE 5%-WATER - 50 ML IVPB SCH ×3 (02:51→17:35)
[2020-12-16] MEDS ORDERED: DOPAMINE 400 MG/D5W - 400,000 MCG/250 ML INFUS.BAG IVPB SCH (06:15)
[2020-12-16] MEDS: INSULIN (LEVEMIR) 100 UNITS/ML UNITS SQ SCH (06:27)
[2020-12-16] MEDS: HEPARIN NA (PORCINE) 5,000 UNITS/ML 1ML VIAL SQ SCH ×3 (06:27→21:55)
[2020-12-16] MEDS: INSULIN SLIDING SCALE (NOVOLOG) 1 VIAL SQ SCH ×4 (06:28→22:16)
[2020-12-16 09:38] LABS: BASO % 0.5 % (0-2.0); EOS % 0.1 % (0-4.5); HEMATOCRIT 27.5 % (35.4-49); LYMPH % 4.4 % (8-40); MCH 32.7 pg (25.7-33.7); MCHC 32.6 g/dl (32.0-35.9); MEAN CELL VOLUME 100.3 fl (80-96); MEAN PLT VOLUME 11.1 fl (7.5-11.1); MONO % 2.2 % (3.8-10.2); NEUT % 92.8 % (42.8-82.8); PLATELET COUNT 156 K/MM3 (134-434); RBC 2.74 M/mm3 (4.00-5.60); RDW 14.8 % (11.9-15.9); WHITE BLOOD COUNT 18.1 K/mm3 (4.0-10.0)
[2020-12-16 10:00] LABS: POTASSIUM 5.3 mmol/L (3.5-5.1)
[2020-12-16] MEDS: PHENYLEPHRINE NS PREMIX 50,000 MCG/500 ML BAG CVP SCH ×2 (10:00→22:50)
[2020-12-16] MEDS: CHOLECALCIFEROL (VIT D3) 1,000 UNIT (25 MCG) TABLET PO SCH (10:00)
[2020-12-16 10:18] LABS: ALBUMIN 1.9 g/dl (3.4-5.0); CALCIUM 7.7 mg/dL (8.5-10.1); MAGNESIUM 2.6 mg/dL (1.8-2.4)
[2020-12-16 10:21] LABS: CREATININE 5.7 mg/dL (0.55-1.3)
[2020-12-16 10:22] LABS: PHOSPHOROUS 8.5 mg/dL (2.5-4.9)
[2020-12-16 10:23] LABS: TOT PROT 4.8 g/dl (6.4-8.2)
[2020-12-16 10:55] LABS: BLOOD UREA NITROGEN 199.4 mg/dL (7-18)
[2020-12-16] MEDS: ACETAMINOPHEN 500 MG TABLET (FP) PO PRN ×2 (11:38→18:28)
[2020-12-16 11:44] LABS: ANISOCYTOSIS 1+; MACROCYTOSIS 1+; OVALOCYTE 1+; PLATELET ESTIMATE DECREASED
[2020-12-16] MEDS: NICOTINE 21 MG/24 HOURS TOPICAL PATCH TD SCH (12:10)
[2020-12-16] MEDS: MULTIVIT INJ. ADULT COMBO WITH VIT K 1 COMBO 10 ML VIAL IV SCH (14:41)
[2020-12-16] MEDS: SODIUM ZIRCONIUM CYCLOSILICATE (LOKELMA) 5 GM PACKET PO SCH (17:05)
[2020-12-16 18:07] LABS: HEP B CORE AB, TOT Negative (Negative)
[2020-12-16] MEDS: CHLORHEXIDINE GLUCONATE 4% CLEANSER FOR DECOLONIZATION TP SCH (21:55)
[2020-12-16] MEDS: ATORVASTATIN CA 10 MG TABLET (FP) PO SCH (21:57)
[2020-12-17] MEDS: VASOPRESSIN 40 UNITS in SODIUM CHLORIDE 98 ML IVPB SCH
[2020-12-17] MEDS: PIPERACILLIN/TAZOB 2.25 GM 2.25 GM in DEXTROSE 5%-WATER - 50 ML IVPB SCH ×2 (02:04→10:46)
[2020-12-17] MEDS: ACETAMINOPHEN 500 MG TABLET (FP) PO PRN (04:46)
[2020-12-17] MEDS: PHENYLEPHRINE NS PREMIX 50,000 MCG/500 ML BAG CVP SCH ×2 (04:47→11:45)
[2020-12-17 06:03] VITALS: TEMP 102.4
[2020-12-17] MEDS: INSULIN (LEVEMIR) 100 UNITS/ML UNITS SQ SCH (08:34)
[2020-12-17] MEDS: INSULIN SLIDING SCALE (NOVOLOG) 1 VIAL SQ SCH ×2 (08:34→15:16)
[2020-12-17] MEDS: HEPARIN NA (PORCINE) 5,000 UNITS/ML 1ML VIAL SQ SCH ×2 (08:36→14:29)
[2020-12-17] MEDS: CHOLECALCIFEROL (VIT D3) 1,000 UNIT (25 MCG) TABLET PO SCH (10:24)
[2020-12-17] MEDS: NICOTINE 21 MG/24 HOURS TOPICAL PATCH TD SCH (10:24)
[2020-12-17] MEDS: SODIUM ZIRCONIUM CYCLOSILICATE (LOKELMA) 5 GM PACKET PO SCH (10:24)
[2020-12-17] MEDS ORDERED: PIPERACILLIN/TAZOBACTAM 2.25 GM VIAL IVPB ONE (10:26)
[2020-12-17] MEDS ORDERED: DEXTROSE 5%-WATER - 50 ML IVPB ONE (10:26)
[2020-12-17] MEDS: MULTIVIT INJ. ADULT COMBO WITH VIT K 1 COMBO 10 ML VIAL IV SCH (14:33)
[2020-12-17 14:56] VITALS: BP 64/29
[2020-12-17 16:36] VITALS: PULSE 131
== END 2020-12-17 22:15 | disposition expired | DRG 207 ==
LOC: JER 14:43 → JERBED 17:20 → J4W 11-29 00:27 → JICU 11-30 15:05 → JICU-6 12-14 17:58
PROVIDERS: ADMIT Family Medicine; ATTEND Internal Medicine Pulmonary Disease
PROC: 5A1955Z Respiratory Ventilation, Greater than 96 Consecutive Hours (ICD-10-PCS; principal; 2020-12-03)
PROC: 0BH17EZ Insertion of Endotracheal Airway into Trachea, Via Natural or Artificial Opening (ICD-10-PCS; 2020-12-03)
PROC: 05HN33Z Insertion of Infusion Device into Left Internal Jugular Vein, Percutaneous Approach (ICD-10-PCS; 2020-12-03)
PROC: B544ZZA Ultrasonography of Left Jugular Veins, Guidance (ICD-10-PCS; 2020-12-03)
PROC: 0DH67UZ Insertion of Feeding Device into Stomach, Via Natural or Artificial Opening (ICD-10-PCS; 2020-12-03)
PROC: 3E0G76Z Introduction of Nutritional Substance into Upper GI, Via Natural or Artificial Opening (ICD-10-PCS; 2020-12-03)
PROC: 3E043XZ Introduction of Vasopressor into Central Vein, Percutaneous Approach (ICD-10-PCS; 2020-12-11)
DX: U07.1 COVID-19 (principal); J12.82 Pneumonia due to coronavirus disease 2019; J96.01 Acute respiratory failure with hypoxia; J96.02 Acute respiratory failure with hypercapnia; Z94.4 Liver transplant status; J44.1 Chronic obstructive pulmonary disease with (acute) exacerbation; N17.9 Acute kidney failure, unspecified; J98.11 Atelectasis; E11.9 Type 2 diabetes mellitus without complications; I10 Essential (primary) hypertension; R00.1 Bradycardia, unspecified; E87.5 Hyperkalemia; D72.829 Elevated white blood cell count, unspecified; E66.9 Obesity, unspecified; Z68.38 Body mass index [BMI] 38.0-38.9, adult; E83.42 Hypomagnesemia; E11.65 Type 2 diabetes mellitus with hyperglycemia; K21.9 Gastro-esophageal reflux disease without esophagitis
CPT/HCPCS: 31500; 36415; 36600; 71045-TC-FY; 76775-TC; 80048; 80053; 80197; 81003; 82248; 82436; 82550; 82553; 82565; 82728; 82803; 82962; 83605; 83615; 83735; 83880; 84100; 84133; 84300; 84484; 85025; 85027; 85379; 85610; 85651; 85730; 86140; 86480; 86704; 86705; 86706; 86707; 86803; 87040; 87076; 87086; 87426; 87804; 87899; 93005; 93010; 94002; 94660; 97116-GP; 97162-GP; 99285-25; C9399; G0480; J0131; J1100; J1644; J3262